=== PATIENT | female | born 1935 | race Caucasian/White ===

== ENCOUNTER 2016-08-26 14:22 | Inpatient (IN) | payer MEDICARE ==
[~2016-08-26] VITALS: Ht 165.1 cm; Wt 92.2 kg
[~2016-08-26 14:22] MED LIST: ASPI-628 PO; ATEN50TA PO; CHOL200047 PO; DICY20TA33 PO; DOCU-41 PO; HYDR-3479 PO; LEVO750T9 PO; LEVO75TA4 PO; LOSA25TA21 PO; MELA1TAB11 PO; METR500T PO; POLY17PO6 PO; RES15 PO; SENN8.6C6 PO; [UNRECOGNIZED DRUG - OTHER] PO
[2016-08-26 14:40] VITALS: PULSE 60; RESP 17; O2SAT 95
[2016-08-26 15:29] VITALS: BP 156/61; PULSE 79; RESP 18; O2SAT 93
[2016-08-26] MEDS ORDERED: Ondansetron 2 mg/mL 2 mL Inj IVPUSH ONE (16:15)
--- NOTE | 2016-08-26 16:17 | ED.REPORT ---
HPI-Abd Pain F 40 and Over Date of Service Aug 26, 2016 ED Provider: Sanjay Meraz MD Pt is an 81 year old female with a hx of DM, partial bowel blockage, and HTN presenting to the ED complaining of many episodes of vomiting today. Associated symptoms include abdominal pain, LE swelling. Denies fever, chills. She reports that her last bowel movement was a couple weeks ago. Pt states that she has not been drinking as much water as she should because she was distracted by her daughter visiting from [place]. She reports that these symptoms are similar to her previous episodes. Pt reports that she had an attempted colonoscopy [address] Abdoul Barton, but he was unable to do one. Nursing Notes Stated Complaint: STOMACH PAIN POSSIBLE INTESTINAL BLOCKAGE/ VOMITIN Chief Complaint: Female Abdominal Pain Nursing Notes Reviewed: Yes (Cognitive Match not reconciled) Allergies: Coded Allergies: Penicillins (Verified Allergy, Severe, Anaphylaxis, 11/09/15) codeine (Verified Allergy, Intermediate, Rash, 11/09/15) Scheduled ([Calanus Oil]) 500 MG PO DAILY Aspirin (Aspir 81) 81 Mg Tablet.dr 81 MG PO DAILY Atenolol (Atenolol) 50 Mg Tablet 50 MG PO DAILY Cholecalciferol (Vitamin D3) (Vitamin D3) 2,000 Unit Capsule 2,000 UNIT PO DAILY Docusate Sodium (Colace) 100 Mg Capsule 100 MG PO BID Levofloxacin (Levaquin) 750 Mg Tablet 750 MG PO DAILY Levothyroxine (Levothyroxine) 75 Mcg Tablet 75 MCG PO DAILY Losartan Potassium (Losartan Potassium) 25 Mg Tablet 25 MG PO DAILY Melatonin/Pyridoxine (Melatonin 3 mg Tablet) 1 Each Tablet 1 EACH PO HS Metronidazole (Flagyl) 500 Mg Tablet 500 MG PO TID Scheduled PRN Dicyclomine (Bentyl) 20 Mg Tablet 20 MG PO DAILY PRN PRN CRAMPING Hydrocodone/Acetaminophen (Vicodin 5-300 mg Tablet) 1 Each Tablet 1 EACH PO Q4 PRN PRN For Pain Polyethylene Glycol 3350 (Miralax) 17 Gm Powd.pack 17 GM PO DAILY PRN PRN For Constipation Sennosides (Senna) 8.6 Mg Capsule 17.2 MG PO BID PRN PRN For Constipation Temazepam (Temazepam) 15 Mg Capsule 15 MG PO HS PRN PRN For Insomnia General Time Seen by MD: 16:13 Chief Complaint Vomiting severe Hx Obtained From: Patient Arrived By: Walk-in Sudden in Onset?: No Onset Occurred: Just prior to arrival Symptom Duration: Since onset Progression since Onset: Constant Location: : Diffuse Quality: Painful Severity: Current: Severe Severity: Maximum: Severe Recent Healthcare: No recent doctor visit, No recent hospitalization Similar Sx Previous: Yes Past Medical History Past Medical History Notes: Admitted for partial small bowel obstruction September 2014 Past Medical History Reports DM Hypothyroidism. History of recurrent diverticulitis, patient refused to have surgery in past (hospitalist note in September 2014 indicates "prior suggestive sigmoid colon malignancy based on imaging", with records indicating the patient's decline any evaluation or workup since then) Chronic insomnia Peripheral neuropathy No diagnosis of atrial fibrillation Reports: Hypertension Past Surgical History Patient reports a failed attempt at colonoscopy in 2004 and is refused subsequent attempt Family History Reports: Coronary artery disease, Stroke Smoking History Never Smoker Social History Alcohol Use: Denies alcohol use Drug Use: Denies drug use Other Social History: Lives alone 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 Physical Exam Vital Signs Vital Signs (First) Date Time Temp Pulse Resp B/P Pulse Ox O2 Delivery O2 Flow Rate FiO2 08/26/16 14:40 36.3 60 17 95 Room Air 08/26/16 15:29 156/61 Initial VS: Reviewed Head / Eyes: Atraumatic, Normocephalic, PERRL ENT: Mucous membranes moist, Conjunctiva normal, No scleral icterus Skin: Warm, Dry, No cyanosis Neurologic: Alert, Oriented, Nonfocal Psychiatric: Mood/affect normal, Behavior normal, Normal thought content General/Constitutional: Awake, Alert, No acute distress Pleasant Respiratory / Chest: Atraumatic, Breath sounds NL, Breath sounds = bilat, No respiratory distress Cardiovascular: Heart rate NL, Regular rhythm, Heart sounds NL, Peripheral circulation NL Abdomen: Soft, Non-tender Lower Extremity / Pelvis / MS: Neurologic intact, Vascular intact Trace edema of legs Interpretation & Diagnostics Lab Results Interpretation Result Diagram: 08/26/16 1620 08/26/16 1620 Test 08/26/16 16:20 08/26/16 19:43 White Blood Count 13.1th/mm3 (3.8-10.1) Red Blood Count 4.76mil/mm3 (3.90-5.20) Hemoglobin 16.0g/dL (12.0-15.6) Hematocrit 48.6% (35.0-46.0) Mean Corpuscular Volume 102.1fL (81-100) Mean Corpuscular Hemoglobin 33.6pg (27.0-35.0) Mean Corpuscular Hemoglobin Concent 32.9% (32.0-37.0) Red Cell Distribution Width 12.9% (12.3-15.4) Platelet Count 215bil/L (150-400) Neutrophils (%) (Auto) 80.5% (40-74) Lymphocytes (%) (Auto) 11.3% (14-46) Monocytes (%) (Auto) 7.6% (4-12) Eosinophils (%) (Auto) 0.2% (0-5) Basophils (%) (Auto) 0.2% (0-3) Sodium Level 140mEq/L (134-144) Potassium Level 3.8mEq/L (3.5-5.2) Chloride Level 100mEq/L (97-108) Carbon Dioxide Level 25mmol/L (18-29) Blood Urea Nitrogen 13mg/dL (8-27) Creatinine 0.61mg/dL (0.57-1.00) Estimat Glomerular Filtration Rate 134mL/min (>59) Glucose Level 206mg/dL (60-99) Lactic Acid Level 1.4mmol/L (0.4-2.0) Calcium Level 9.9mg/dL (8.5-10.1) Magnesium Level 2.3mg/dL (1.6-2.6) Total Bilirubin 0.8mg/dL (0.0-1.2) Aspartate Amino Transf (AST/SGOT) 65U/L (0-50) Alanine Aminotransferase (ALT/SGPT) 83U/L (0-32) Alkaline Phosphatase 90U/L (25-165) Total Protein 7.1g/dL (6.4-8.4) Albumin 4.0g/dL (3.4-5.0) Lipase 16U/L (13-60) Lab Results Interpretation: Mild leukocytosis CMP mild hyperglycemia ECG Interpretation ECG Interpretation: Q waves inferiorally. Poor R wave progression. Computer reads prolonged QT interval however I do not agree. Time: 16:58 Interpreted by: ED physician Normal ECG Interpretation: Normal rate (81), Normal sinus rhythm CT Abd / Pelvis Interpretation IMPRESSION: 1. Apple core lesion within the sigmoid colon most consistent with colorectal cancer with resultant partial obstruction as described above. Fat stranding and trace fluid suggest microperforation. No pat pneumoperitoneum. This finding was discussed with Dr. Meraz at 6:13 PM on 08/26/16. 2. Cholelithiasis. Dictated by: aZhra Jones M.D. on 08/26/2016 at 18:02 Study type: Abdominal CT IV contrast Interpretation / Wet Read by: Interpret - Radiologist Procedures NG Tube Insertion Considerable discussion was held with the patient and family prior to NG tube insertion, patient initially resistant, but after lengthy discussion admitted for decompression, patient is agreed. Preparation for procedure, I administered 1 mg of Versed (per recent study demonstrating marked improvement), intranasal bupivacaine with epinephrine, intranasal oxymetazoline, and oral viscous lidocaine. Tubes placed without difficulty with immediate return of gastric fluid, placed to suction. A chest x-ray is being obtained to verify placement. The procedure was well-tolerated and without complication. Time: 19:49 Procedure Performed by: ED physician Site of Insertion: Nare right # of Attempts: 1 Size of Oral/NG Tube: 16 Fr Placement/Verification/Secured: Inserted w/o difficulty, Secured with nose guard Post-Procedure / Complications: Suction: continuous low, Suction: Intermittent med, No complications Re-Eval/Medical Decision Med Decision/Clinical Course This is an 81-year-old female presents with abdominal pain nausea vomiting a chief complaint that she says it is all constipation patient reports she takes MiraLAX 3 times a day, but despite this has had only colored stool weeks, and no bowel movement for more than 10 days. Her [place] [facility] today she had increasing pain, developed vomiting, could not keep anything down-therefore came to the emergency department. When I review the records, indicates she was admitted in the summer of [address] scan concern for thickening of the sigmoid colon with a recommendation for colonoscopy-but the patient had refused almost every intervention, blood work, CT scan imaging, and did not want any care testing non-to the point that even then apologetic care consultation was obtained. The patient now states she does not believe anyone told her there was any concerns of this nature, and she just did not like the personality of the providers involved. The family are fairly shocked at the morning that there had been previous concerns, but her friend who is here before does recall that the patient had been advised of these concerns and had been difficult and declined care. Appears uncomfortable today. She is not in extremist but has mild abdominal tenderness. However even though she is uncomfortable, she initially attempts refused or declined medications, although ultimately she accepted. She claimed that all she needed was an enema on medications to help stool passed, but given these prior records and concerns, I have recommended CT imaging-CM and family agreed to this. The CT imaging is interpreted as positive for a nap or lesion that is worse than previously seen on CT and is highly suspicious for an underlying malignancy. Patient was informed of these findings. I had a long discussion as the initial step recommended was decompression with NG tube, and after extensive deliberation discussion the patient's finally accepted this-an attempt to reduce the discomfort placement, the patient's receiving medazepam, intranasal bupivacaine, intranasal oxymetazoline, and oral lidocaine. Discussed the case with surgery given the presentation includes about structural , they would like GI to be involved primarily at this stage, and called back after GI consultation completed. The case was discussed with GI, who will see the patient likely tomorrow, and are considering sigmoid possibly for biopsy and initial therapy. Patient's being admitted for continued management and the case is discussed with the hospitalist. Source of Hx: Old records Re-Evaluation/Progress #1: Time of Eval: 17:45 Patient Status: Condition improved Re-Evaluation/Progress Note: Pt in CT. Re-Evaluation/Progress #2: Time of Eval: 18:24 Patient Status: Condition improved Re-Evaluation/Progress Note: Discussed CT results and plan for admission. Pt understands and agrees with plan. All pt questions addressed. Consultation #1: Referral / Consult Name: Gil Funez MD Consulted With: Surgeon Call Returned at: 18:55 Shipping Receiving Manager: Will see patient Note: They want the pt to see GI first, so they will stand by and wait for the GI consult. Consultation #2: Referral / Consult Name: Will Marcelino MD Call Returned at: 18:58 Shipping Receiving Manager: Will see patient Note: GI. He will see the pt. Consultation #3: Referral / Consult Name: Booker Villar MD Consulted With: Hospitalist Call Returned at: 19:15 Shipping Receiving Manager: Accepts admit Note: Case discussed Counseled Regarding: Diagnosis, Lab results, Need for follow-up, When/why to return to ED Discharge & Departure Primary Impression: Partial bowel obstruction Additional Impressions: Uncontrollable nausea and vomiting Vomiting type: unspecified Qualified Code: R11.2 - Nausea with vomiting, unspecified Sigmoid thickening Disposition: ADMITTED TO HOSPITAL Discharge Condition All VS Reviewed: Yes Condition: Improved Referrals: Ellis Holt MD (PCP) Dejon Attestation Portions of this note were transcribed by Laura Card. I, Dr. Meraz personally performed the history, physical exam and medical decision-making; I reviewed and confirmed the accuracy of the information in the transcribed note. Signed by: Dejon Tamayo, 08/26/2016 at 1660. copies to: Ellis Holt MD, Matthew F MD Aug 26, 2016 16:17 LAURA CARD Aug 26, 2016 16:27
[2016-08-26 16:31] LABS: BASOPHILS % (AUTO) 0.2 % (0-3); EOSINOPHILS % (AUTO) 0.2 % (0-5); MONOCYTES % (AUTO) 7.6 % (4-12); Mean Corpuscular Hemoglobin 33.6 pg (27.0-35.0); Mean Corpuscular Volume 102.1 fL (81-100); NEUTROPHILS % (AUTO) 80.5 % (40-74); Platelet Count 215 bil/L (150-400)
[2016-08-26] MEDS ORDERED: 0.9% Sodium Chloride 1,000 ML IV ONE (16:35)
[2016-08-26] MEDS: HYDROmorphone 0.5 mg/0.5 mL iSecure Syringe IVPUSH PRN ×3 (16:40→22:28)
[2016-08-26 16:54] LABS: Magnesium 2.3 mg/dL (1.6-2.6)
--- NOTE | 2016-08-26 18:18 | DRSVH ---
PROCEDURE: CT ABDOMEN AND PELVIS WITH CONTRAST ([id number]) INDICATIONS: abd pain vomiting TECHNIQUE: After the administration of intravenous contrast, 5 mm thick sections acquired from the diaphragm to the symphysis. 5 mm coronal and sagittal reformats were acquired. For radiation dose reduction, the following was used: automated exposure control, adjustment of mA and/or kV according to patient clara ibarra. COMPARISON: [facility], CT, CT ABD PELVIS W CON, 11/06/2015, 19:40. FINDINGS: Image quality: Excellent. ABDOMEN: Lung bases: Mild atelectasis is present at the left lung base. No pleural effusion or pneumothorax. Solid organs: Liver and spleen are normal in size and enhancement. A large lamellated gallstone is p resent within the gallbladder fundus. Biliary system is non dilated. Pancreas enhances normally. No adrenal nodules. Kidneys demonstrate normal size and enhancement, without hydronephrosis. An 8 x 1 2 mm nonobstructing calculus is present within the left renal pelvis. Peritoneum and bowel: Core lesion is present within the sigmoid colon. This is increased in extent wh en compared with the study dated 11/06/15. Trace free fluid and fat stranding is present in this regio n and microperforation cannot be excluded. No definite pneumoperitoneum. There is likely partial obst ruction with increased stool burden in the descending and sigmoid colon upstream to this lesion. The downstream colon is decompressed with scattered colonic diverticuli. Nodes and vessels: No retroperitoneal or mesenteric adenopathy by size criteria. Aorta and inferior vena cava are normal in size. There are scattered atheromatous calcifications throughout the aorta and iliac arteries bilaterally. Miscellaneous: No ventral hernias. PELVIS: Genitourinary: Bladder wall thickness is normal. Miscellaneous: No inguinal hernias or adenopathy. Bones: No suspicious bony lesions. No vertebral body compression fractures. IMPRESSION: 1. Apple core lesion within the sigmoid colon most consistent with colorectal cancer with resultant p artial obstruction as described above. Fat stranding and trace fluid suggest microperforation. No fra nk pneumoperitoneum. This finding was discussed with Dr. Meraz at 6:13 PM on 08/26/16. 2. Cholelithiasis. Dictated by: Zhara Jones M.D. on 08/26/2016 at 18:02 Approved by: Zahra Jones M.D. on 08/26/2016 at 18:17
[2016-08-26] MEDS ORDERED: Bupivacaine 0.5%/EPI 50 mL Inj ONE (19:22)
[2016-08-26] MEDS ORDERED: Bupivacaine 0.5%/EPI 50 mL Inj INFILTRATE ONE (19:30)
--- NOTE | 2016-08-26 19:34 | PCM.HPMED ---
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 Her stated symptoms include constipation with last bowel movement being this morning however consisting of small pellets. In the past she has experienced bowel movements that are pencil-shaped stools. Patient had attributed this to old age. Also of note patient had 5 pound weight loss over the past month that she attributes to decreased by mouth intake by choice. Patient denied a loss of appetite. She does report that she has been drinking less water over the past 2 days. Patient states what she would consider a normal bowel movement was 5-7 days ago. Currently patient's pain after receiving IV Dilaudid and having NG tube placed is 0 out of 10. Denies fever, chills, diarrhea. Pt states that she has not been drinking as much water as she should because she was distracted by her daughter visiting from [place]. She reports that these symptoms are similar to her previous episodes of abdominal cramps and nausea and vomiting in the past. She reports that this is just a most recent episode In the ED CT showed: Apple core lesion within the sigmoid colon most consistent with colorectal cancer with resultant partial obstruction as described above. Fat stranding and trace fluid suggest microperforation. No pat pneumoperitoneum. 2. Cholelithiasis. Of note patient was seen on 11/06/2015 for similar symptoms of small bowel obstruction and had abdominal/pelvic CT contrast done which showed: Irregular wall thickening within the mid sigmoid colon similar in appearance to the study dated 07/15/13. This finding is suspicious for indolent neoplasm. There is no pericolonic fat stranding, pneumoperitoneum, or findings to suggest abscess. There is a moderate stool burden upstream from this lesion and the downstream bowel is decompressed, suggesting partial colonic obstruction. The small bowel and the right colon are decompressed. Patient had refused further workup with colonoscopy or medical treatment at that time and was discharged home with laxatives for constipation and instructions to follow up with her PCP. Patient has history of refusal of colonoscopies since she had a failed colonoscopy in [address] Abdoul Barton. Vital signs in the ED temperature 36.3, pulse 60, respiratory rate 17, blood pressure 156/61 with a map of 92, pulse ox 93% on room air Hemogram showed: WBC is 13.1 with 80.5% PMNs, H/H 16.0/48.6, MCHC 32.9, MCH 33.6 , MCV 102.1, platelet count 215, Chemistry panel: Sodium 140, potassium 3.8, chloride 100, CO2 25, BUN 13, creatinine 0.61, glucose 206, lactic acid 1.4 AST 65, ALT 83, otherwise normal hemogram Review of Systems: A comprehensive review of systems was conducted and was negative except as mentioned in history of present illness. Allergies Coded Allergies: Penicillins (Verified Allergy, Severe, Anaphylaxis, 08/26/16) codeine (Verified Allergy, Intermediate, Rash, 08/26/16) Home Medications ([Calanus Oil]) 500 MG PO DAILY Aspirin (Aspir 81) 81 Mg Tablet.dr 81 MG PO DAILY Atenolol (Atenolol) 50 Mg Tablet 50 MG PO DAILY Cholecalciferol (Vitamin D3) (Vitamin D3) 2,000 Unit Capsule 2,000 UNIT PO DAILY Docusate Sodium (Colace) 100 Mg Capsule 100 MG PO BID Levothyroxine (Levothyroxine) 75 Mcg Tablet 75 MCG PO DAILY Losartan Potassium (Losartan Potassium) 25 Mg Tablet 25 MG PO DAILY Melatonin/Pyridoxine (Melatonin 3 mg Tablet) 1 Each Tablet 1 EACH PO HS Hydrochlorothiazide 25 mg daily PRN Hydrocodone/Acetaminophen (Vicodin 5-300 mg Tablet) 1 Each Tablet 1 EACH PO Q4 PRN PRN For Pain Polyethylene Glycol 3350 (Miralax) 17 Gm Powd.pack 17 GM PO DAILY PRN PRN For Constipation Sennosides (Senna) 8.6 Mg Capsule 17.2 MG PO BID PRN PRN For Constipation Temazepam (Temazepam) 15 Mg Capsule 15 MG PO HS PRN PRN For Insomnia Trazodone 50 mg takes half a tablet daily at bedtime Ibuprofen 400 mg when necessary PMH Admitted for partial small bowel obstruction September 2014 Reports DM Hypothyroidism. History of recurrent diverticulitis, patient refused to have surgery in past (hospitalist note in September 2014 indicates "prior suggestive sigmoid colon malignancy based on imaging", with records indicating the patient's decline any evaluation or workup since then) Chronic insomnia Peripheral neuropathy No diagnosis of atrial fibrillation Hypertension History of a crush lumbar vertebra and now has chronic pain . Surgical History Patient reports a failed attempt at colonoscopy in 2004 and is refused subsequent attempt Reports appendectomy at age 9, Reports right rotator cuff repair in 2009 Family History Patient reports she has a brother who of cancer age 58 Patient denies a family history of of stroke, diabetes, hypertension, coronary artery disease Social History Hx Alcohol Use: No Hx Substance Use: No Hx Tobacco Use: No Smoking Status: Never Smoker Living Arrangement: Alone (patient resides at [facility]) Exam Vital Signs Vital Sign - Last Date Time Temp Pulse Resp B/P Pulse Ox O2 Delivery O2 Flow Rate FiO2 08/26/16 15:29 79 18 156/61 93 Room Air 08/26/16 14:40 36.3 Exam General: Patient is alert and oriented 3 resting comfortably in the hospital bed in the emergency department, patient's daughter in 3 friends are present in the room, patient speaking in full sentences. HEENT: NC/AT, eyes, PERRLA, EOMI, neck, soft supple, no adenopathy, no JVD, no masses, no thyromegaly, throat mucous membranes pink and moist, no erythema, no exudates, no tonsillar swelling, no uvular deviation. Lungs: Bilateral lung bases with crackles, no wheezes, no rhonchi, no use of accessory muscles of respiration, good air movement, good respiratory effort. Heart: Regular rate and rhythm, no murmur, S1-S2 present, no rub, no click, no distant heart sounds, Abdomen: Soft, palpable hard stool in the left lower quadrant, nontender to palpation, nondistended, bowel sounds hypoactive, no rebound, no guarding, Genitourinary: No CVA tenderness, no suprapubic tenderness, no Lainez catheter, Extremities: Pulses equal and symmetric upper/lower extremity including radial and dorsalis pedis, bilateral lower extremity edema to midcalf +1 pitting Neurologic: Grossly neurologically intact, speaking in full sentences, no focal neurological signs. Psychiatric: Mood is cheerful and mood and affect are congruent and appropriate. Lab and Diagnostics Result Diagram: 08/26/16 1620 08/26/16 1620 X-Rays, CTs and MRIs Date of Service: 08/26/16 1631 PROCEDURE: CT ABDOMEN AND PELVIS WITH CONTRAST INDICATIONS: abd pain vomiting TECHNIQUE: After the administration of intravenous contrast, 5 mm thick sections acquired from the diaphragm to the symphysis. 5 mm coronal and sagittal reformats were acquired. For radiation dose reduction, the following was used: automated exposure control, adjustment of mA and/or kV according to patient size. COMPARISON: [facility], CT, CT ABD PELVIS W CON, 11/06/2015, 19:40. FINDINGS: Image quality: Excellent. ABDOMEN: Lung bases: Mild atelectasis is present at the left lung base. No pleural effusion or pneumothorax. Solid organs: Liver and spleen are normal in size and enhancement. A large lamellated gallstone is present within the gallbladder fundus. Biliary system is non dilated. Pancreas enhances normally. No adrenal nodules. Kidneys demonstrate normal size and enhancement, without hydronephrosis. An 8 x 12 mm nonobstructing calculus is present within the left renal pelvis. Peritoneum and bowel: Core lesion is present within the sigmoid colon. This is increased in extent when compared with the study dated 11/06/15. Trace free fluid and fat stranding is present in this region and microperforation cannot be excluded. No definite Pneumoperitoneum. There is likely partial obstruction with increased stool burden in the descending and sigmoid colon upstream to this lesion. The downstream colon is decompressed with scattered colonic diverticuli. Nodes and vessels: No retroperitoneal or mesenteric adenopathy by size criteria. Aorta and inferior vena cava are normal in size. There are scattered atheromatous calcifications throughout the aorta and iliac arteries bilaterally. Miscellaneous: No ventral hernias. PELVIS: Genitourinary: Bladder wall thickness is normal. Miscellaneous: No inguinal hernias or adenopathy. Bones: No suspicious bony lesions. No vertebral body compression fractures. IMPRESSION: 1. Apple core lesion within the sigmoid colon most consistent with colorectal cancer with resultant partial obstruction as described above. Fat stranding and trace fluid suggest microperforation. No pat pneumoperitoneum. This finding was discussed with Dr. Meraz at 6:13 PM on 08/26/16. 2. Cholelithiasis. Dictated by: Zahra Jones M.D. on 08/26/2016 at 18:02 Approved by: Zahra Jones M.D. on 08/26/2016 at 18:17 Date of Service: 08/26/161947 PROCEDURE: X-RAY CHEST ONE VIEW, PORTABLE INDICATIONS: check NG placement TECHNIQUE: One view of the chest was acquired. COMPARISON: None. FINDINGS: Surgical changes and devices: An NG tube is present with the tip projected over the gastric fundus. Lungs and pleura: No pleural effusions or pneumothorax. Lungs are clear. Mediastinum: Mediastinal contours appear normal. Heart size is normal. Bones and chest wall: No suspicious bony lesions. Overlying soft tissues appear unremarkable. IMPRESSION: No acute cardiopulmonary findings. NGT projected over the gastric fundus. Dictated by: Zahra Jones M.D. on 08/26/2016 at 20:29 Approved by: Zahra Jones M.D. on 08/26/2016 at 20:30 Assessment & Plan # Small bowel obstruction, present on admission, active -Has had similar severe nausea and vomiting episodes in the past. Patient states this episode started 2 days ago with severe central abdominal cramping rated 12 out of 10, by vomiting onset today. -Patient has NG tube placed, wanted for pain with reported significant improvement. Patient's pain on medication was 0 out of 10 - Start normal saline 100 ml/hr -We will continue IV Dilaudid for pain -GI has been consulted -Supportive care -Nothing by mouth for now # Large bowel obstruction, present on admission, active -History of constipation and takes multiple stool softeners including Colace 100 mg by mouth twice a day, senna 8.6 mg capsule by mouth twice a day when necessary, and MiraLAX -Failed colonoscopy [address] Barton -History of colon obstruction as seen on abdominal imaging since 2013. -08/26/2016 Apple Core lesion seen on CT abdomen and pelvis with stool compaction proximal to stricture. -Patient has NG tube placed -GI has been consulted by the ED and will perform sigmoidoscopy -Surgery Dr. Funez has been consulted by the ED, he was present in the room during this exam. -Stool softeners and laxatives to include docusate, senna, and MiraLAX scheduled #Leukocytosis, present on admission, active -Vital signs in the ED temperature 36.3, pulse 60, respiratory rate 17, blood pressure 156/61 with a map of 92, pulse ox 93% on room air -WBC is 13.1 with 80.5% PMNs -Lactic acid 1.4 -Patient does not meet sepsis criteria -Meropenem 1000 mg IV started in ED -Meropenem 1000 mg IV Q8H #Hyperglycemia in a known type 2 diabetic, present on admission -Glucose 206 -start low-dose correctional scale insulin # Hypertension, chronic, present on admission -We will continue Atenolol 50 mg daily -We will continue Losartan 25 mg daily # Hypothyroidism, present on admission, chronic, active - Levothyroxin 75 g daily # Insomnia -Temazepam 15 mg by mouth. Before bedtime -Melatonin 3 mg before bedtime #Transaminitis chronic, present on admission, active -AST 65, ALT 83, - Disposition: Admitted to in patient service with expected length of stay greater than 2 days, secondary to severity of presenting symptoms, treatment plan, complexity of clinical work up, and risk of adverse events. CODE STATUS: DNR/DNI PCP: Ellis Holt DVT PE prophylaxis: SCD's/Enoxiparin/SubQ heparin Q8H Contact: Valerie, patient's daughter [phone] Attending Statement The patient was seen and examined together with Dr. Neal on 08/26 and I agree with the history, exam and plan as outlined in the note above. Tariq Neal DO Aug 26, 2016 19:34 Booker Villar MD Aug 26, 2016 22:34
[2016-08-26] MEDS ORDERED: Meropenem Inj 1,000 MG in IV Premix 1 EACH IV ONE (19:35)
[2016-08-26] MEDS ORDERED: 0.9% Sodium Chloride 1,000 ML IV SCH (19:54)
[2016-08-26] MEDS ORDERED: Alum-Mag Hydrox-Simeth 30 mL Suspension PO PRN ×2 (19:55→21:15)
[2016-08-26] MEDS ORDERED: Ondansetron 2 mg/mL 2 mL Inj IVPUSH PRN ×2 (19:55→21:15)
[2016-08-26 20:18] VITALS: BP 169/64; PULSE 87; RESP 18; O2SAT 94
[2016-08-26 20:30] LABS: APPEARANCE,URINE HAZY (CLEAR,HAZY); COLOR,URINE YELLOW (YELLOW); OCCULT BLOOD,URINE LARGE (NEGATIVE); UROBILINOGEN,URINE NORMAL (NORMAL)
--- NOTE | 2016-08-26 20:31 | DRSVH ---
PROCEDURE: X-RAY CHEST ONE VIEW, PORTABLE ([id number]) INDICATIONS: check NG placement TECHNIQUE: One view of the chest was acquired. COMPARISON: None. FINDINGS: Surgical changes and devices: An NG tube is present with the tip projected over the gastric fundus. Lungs and pleura: No pleural effusions or pneumothorax. Lungs are clear. Mediastinum: Mediastinal contours appear normal. Heart size is normal. Bones and chest wall: No suspicious bony lesions. Overlying soft tissues appear unremarkable. IMPRESSION: No acute cardiopulmonary findings. NGT projected over the gastric fundus. Dictated by: Zahra Jones M.D. on 08/26/2016 at 20:29 Approved by: Zahra Jones M.D. on 08/26/2016 at 20:30
[2016-08-26] MEDS ORDERED: Polyethylene Glycol (PEG) 17 Gm Powder PO PRN ×2 (21:10→21:15)
[2016-08-26] MEDS ORDERED: DICYCLOMINE 20 MG PO PRN (21:10)
[2016-08-26] MEDS ORDERED: TRAZ-115 PO (21:22)
[2016-08-26] MEDS ORDERED: HYDR25TA4 PO (21:22)
[2016-08-26] MEDS ORDERED: [UNRECOGNIZED DRUG - OTHER] PO (21:22)
[2016-08-26] MEDS ORDERED: GLUC-120 PO (21:22)
[2016-08-26] MEDS ORDERED: ASPI-973 PO (21:22)
[2016-08-26] MEDS ORDERED: MULT-666 PO (21:22)
[2016-08-26] MEDS ORDERED: [UNRECOGNIZED DRUG - OTHER] PO (21:22)
[2016-08-26] MEDS ORDERED: Glucose 40% Oral Gel 15 Gm Tube PO PRN (21:35)
[2016-08-26 21:36] VITALS: BP 169/64; PULSE 84; RESP 18; O2SAT 94
[2016-08-26 21:39] LABS: INR 0.96 ratio
--- NOTE | 2016-08-26 21:50 | NUR ---
Admission Note Pt admitted to [facility] from ER on stretcher at 2135, alert and orientedx3, states intermittent abdominal cramping 5/10, c/o soar throat due to NG tube in place, nausea resolved, denies SOB,any other pain or fever,chills,dizziness or vertigo. Pt states last BM maybe 3-4 days ago, not sure,pass some gas. Mild decreased lung sounds,clear, heart rate regular,tele applied SR 79 per secured entrance monitor. Abdomen mild distended,soft, mild tenderness at lower quadrant, BT not present. NG in right nose,connected to low continuos wall suction, verified by charge nurse Edy Eugene. 1+ edema at bilateral LEs. Dilaudid will be given for abdominal pain, pt requests med for soar throat, Resident Val contacted and Dr. Chinchilla also communicated, soar throat spray ordered, waiting for med to be sent by pharmacy. Pt informed NPO. Call light oriented to pt. Care ongoing.
[2016-08-26 22:09] VITALS: BP 161/83; PULSE 82; RESP 18; O2SAT 92
[2016-08-26] MEDS ORDERED: Acetaminophen IV 650 MG in IV Premix 1 EACH IV PRN (22:10)
[2016-08-26] MEDS ORDERED: Acetaminophen IV 1,000 MG in IV Premix 1 EACH IV ONE (22:20)
[2016-08-26] MEDS: 0.9% Sodium Chloride 1,000 ML IV SCH (22:27)
[2016-08-26] MEDS: Heparin 5,000 Unit/mL Inj SUBQ SCH (22:27)
[2016-08-26] MEDS ORDERED: Labetalol 5 mg/mL 4 mL Inj IVPUSH ONE (22:30)
[2016-08-26] MEDS: Insulin LISPRO 300 Unit/3 mL Inj SUBQ SCH (23:21)
[2016-08-26] MEDS: Phenol 1.4% 177 mL Spray MUC_MEMBRM PRN (23:32)
[2016-08-27] VITALS (8 sets, daily range): BP systolic 116–160; BP diastolic 57–73; PULSE 73–87; RESP 16–18; O2SAT 92–98
--- NOTE | 2016-08-27 00:02 | CONS ---
[address] [address] CONSULTATION REPORT PATIENT: KWABENA CORDERO : 1935 MR#: [id number] ADMIT: 08/26/2016 JOB ID: [id number] DATE OF SERVICE: 08/26/2016 CHIEF COMPLAINT: Sigmoid mass, nausea and vomiting. HISTORY OF PRESENT ILLNESS: The patient is an 81-year-old female who presented to the emergency department today due to abdominal pain and nausea, vomiting. The patient developed lower abdominal cramping yesterday and today had several episodes of nausea and vomiting. The patient has not had a good bowel movement for the past several weeks. She is passing pencil-like stools and small pellet-like rocks as stool. She did have a small pellet stool this morning and she does report passing flatus. The patient has had prior CT scans in January [address] scan in October 2015 which showed sigmoid thickening, however, the patient has had a prior attempted colonoscopy by Dr. Abdoul Barton in 2003 in which it was not successful and subsequently patient has refused further endoscopic surveillance of her colon. The CT scan report in January 2014 shows irregular wall thickening involving the sigmoid colon and also cholelithiasis. The CT scan from October 2015 showed irregular wall thickening within the mid sigmoid colon similar in appearance to June 2013. This finding is suspicious for indolent neoplasm. There are also findings of cholelithiasis. The patient has had prior history of recurrent diverticulitis. Given the onset of lower abdominal pain and nausea, vomiting over the past two days, a repeat CT scan was done today and this also showed an apple core lesion within the sigmoid colon most consistent with colorectal cancer with resultant partial obstruction. There are also findings of cholelithiasis. I discussed the potential implications of these CT scan findings with the patient and her daughter today. PAST MEDICAL HISTORY: Diabetes, hypertension, hypothyroidism, attempted colonoscopy in 2003, recurrent diverticulitis, neuropathy and carpal tunnel surgery, appendectomy. MEDICATIONS AT HOME: 1. Baby aspirin. 2. Atenolol. 3. Vitamins. 4. Colace. 5. Levaquin. 6. Losartan. 7. Senna. ALLERGIES: 1. CODEINE. 2. PENICILLIN. 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 She does have two daughters. FAMILY HISTORY: Positive for heart disease, stroke and brain tumor. REVIEW OF SYSTEMS: Positive for the lower abdominal cramping, nausea, vomiting which started today. She is passing flatus and having small rock-like stool and also pencil-like stool. PHYSICAL EXAMINATION: The patient is currently on the emergency department [facility] in no acute distress. An NG tube is in place. Temperature is 36.3, blood pressure 169/64, pulse is 87, respirations 18. Her BMI is 34.7. Head is normocephalic, atraumatic. There is no scleral icterus. Neck is supple. Heart is in regular rate. Lungs are clear bilaterally. Abdomen is obese. It is nontender in the upper quadrants, and it is only mildly tender in the suprapubic and left lower quadrant location. There are definitely no signs of palpable mass or peritoneal signs. Extremities show no clubbing and no cyanosis. Neurologically, the patient is awake and alert, and she is able to communicate with me. Her daughter is also present. LABORATORY EXAMINATION: Shows a white blood count of 13.1, hematocrit 48.6, platelet count is 215. Sodium is 140, potassium 3.8, creatinine 0.61, total bilirubin is 0.8, lipase is 16. The CT scan report from today shows an apple core lesion within the sigmoid colon most consistent with colorectal cancer with partial obstruction and also cholelithiasis. ASSESSMENT: This is an 81-year-old female with a nearly obstructing apple-core lesion in her sigmoid colon. She has had worrisome CT scan findings dating back to June 2013, January 2014, and October 2015. The patient had a failed colonoscopy in 2004, and has since then refused further endoscopic evaluation. I believe Gastroenterology has been consulted, and I believe their plan is to perform a sigmoidoscopy at some point. I have discussed with the patient that in this situation she may warrant an exploratory laparotomy with sigmoid resection and a colostomy. The patient is of the impression that she is 81 and she may not want to pursue surgical intervention. The patient has expressed similar opinion during her prior hospitalizations here at [facility]. I will follow up with the patient to see if she is of the same opinion. I do recommend that GI proceed with sigmoidoscopy and we can get a CEA level sent off. We should wait for the results of the sigmoidoscopy. If she has made up her mind not to pursue a surgical solution, then palliative care should be consulted. LEOLA
[2016-08-27] MEDS: Phenol 1.4% 177 mL Spray MUC_MEMBRM PRN ×4 (02:23→22:34)
[2016-08-27] MEDS: HYDROmorphone 0.5 mg/0.5 mL iSecure Syringe IVPUSH PRN ×3 (02:23→14:37)
[2016-08-27] MEDS ORDERED: Acetaminophen IV 1,000 MG in IV Premix 1 EACH IV PRN (04:10)
[2016-08-27] MEDS: Heparin 5,000 Unit/mL Inj SUBQ SCH ×3 (05:36→22:34)
[2016-08-27] MEDS: Meropenem Inj 1,000 MG in 0.9% Sodium Chloride 100 ML IV SCH ×2 (05:36→13:05)
[2016-08-27 06:07] LABS: BASOPHILS % (AUTO) 0.2 % (0-3); EOSINOPHILS % (AUTO) 1.7 % (0-5); MONOCYTES % (AUTO) 11.6 % (4-12); Mean Corpuscular Hemoglobin 34.6 pg (27.0-35.0); Mean Corpuscular Volume 102.4 fL (81-100); NEUTROPHILS % (AUTO) 60.3 % (40-74); Platelet Count 208 bil/L (150-400)
[2016-08-27 06:16] LABS: INR 0.99 ratio
[2016-08-27] MEDS: Insulin LISPRO 300 Unit/3 mL Inj SUBQ SCH ×4 (08:00→22:00)
[2016-08-27] MEDS: 0.9% Sodium Chloride 1,000 ML IV SCH (08:46)
--- NOTE | 2016-08-27 10:39 | NUR ---
Pain Pt is alert and oriented x4. Pt is here due to a bowel obstruction. Pt has not had a bowel movement in a few days, the goal is for pt to have a bm. Pt claims flatulence. pt is having abdominal pain and rates it 6/10. Pt was given Dilaudid at 10am this morning (PRN). Pain level was reassessed 15 minutes later and pt is having no pain (0/10).
[2016-08-27] MEDS ORDERED: Sodium Biphos-Phos 133 mL Enema RECTAL ONE (13:00)
--- NOTE | 2016-08-27 13:57 | NUR ---
Enema Pt was given an enema at 1315. Pt expelled 150 cc of cloudy/brown liquid containing small pellet feces on the commode. pt back in bed safely, bed low and call light within reach.
--- NOTE | 2016-08-27 14:50 | PCM.CHPMED ---
Subjective Date of Service: Aug 27, 2016 Primary Physician: Admitting Physician: Booker Villar MD Primary Care Physician: Ellis Holt MD Attending Physician: Will Marcelino MD Admit Status: From the Emergency Department Chief Complaint: Chief Complaint: Reason for consultation: sigmoid colon mass History of Present Illness: GASTROENTEROLOGY CONSULTATION: Lissette Mendoza is a 81 yo female with a history of partial bowel blockage due to sigmoid thickening dating back to 2013, Type 2 DM, hypothyroidism, and HTN who presented to [facility] for 2 day history of severe generalized abdominal pain with nausea and vomiting. The patient reports chronic constipation that controlled with daily laxatives and stool softeners. However, in the week, she has not had a good bowel movement and is passing pencil-like stools and small pellet-like rocks as stool. She attributes this to dehydration as she has not been drinking much water due to being "distracted by her daughter visitnaya from [place]." She reports that these symptoms are similar to her previous episodes of abdominal cramps with nausea and vomiting that prompted hospital admission in the past. Otherwise, she denies hematemesis, hematochezia, melena, dizziness , headache, chest pain, fever, or chills. Of note, the patient had a CT scan in January 2014 that showed irregular wall thickening involving the sigmoid colon and also cholelithiasis. The CT scan from October 2015 showed irregular wall thickening within the mid sigmoid colon similar in appearance to June 2013. This finding is suspicious for indolent neoplasm. The patient has had prior history of recurrent diverticulitis. Given the onset of lower abdominal pain and nausea, vomiting over the past two days, a repeat CT scan was done yesterday and this also showed an apple core lesion within the sigmoid colon most consistent with colorectal cancer with resultant partial obstruction. Again, there are also findings of cholelithiasis. In the past, the patient had refused further workup with colonoscopy or medical treatment at that time and was discharged home with laxatives for constipation and instructions to follow up with her PCP. Patient had a failed colonoscopy by Dr. Abdoul Barton in 2003, and subsequently has been refusing further endoscopic surveillance of her colon ever since. Today, she reports significant improvement of her symptoms with the NG tube and pain medication. She had a small pellet stool yesterday morning and she does report passing flatus intermittently. Dr. Funez from general surgery discussed with the patient and her daughter about possible exploratory laparotomy with sigmoid resection and a colostomy. Patient initially refused to pursue surgical or invasive intervention. However, when we talked to her this morning, she agreed to "whatever needs to be done because I cannot keep having this again." However, she is adamant about NO colonoscopy and refuses to do the bowel prep. She is ok with sigmoidoscopy and surgical interventions at this point. Gastroenterology service is consulted for the sigmoidoscopy. Review of Systems: Constitutional: Denies: Chills, Fever, Weakness Eyes: Denies: Blurred Vision, Conjunctive Inflammation, Double Vision ENT: Denies: Dysphagia, Ear Pain, Hoarseness, Throat Pain, Ulcers/Sores in Mouth Neck: Denies: Pain Cardiovascular: Denies: Chest Pain, Irregular Heart Rate, Palpitations, SOB on Exertion Gastrointestinal: Reports: Abdominal Pain, Change in Appetite, Constipation, Nausea, Use of Laxatives, Vomiting, Denies: Black tarry stools, Blood in stool (red), Diarrhea, Heartburn Genitourinary: Denies: Change in Frequency, Dysuria, Hematuria, No burning or pain with urination Neurological: Denies: Change in Speech, Confusion, Dizziness, Somnolence Psychologic: Denies: Anxiety, Depression Hematologic: Denies: Abnormal Bleeding, Bruising PMH Past Medical History Admitted for partial small bowel obstruction September 2014 Reports DM Hypothyroidism. History of recurrent diverticulitis, patient refused to have surgery in past ( hospitalist note in September 2014 indicates "prior suggestive sigmoid colon malignancy based on imaging", with records indicating the patient's decline any evaluation or workup since then) Chronic insomnia Peripheral neuropathy Hypertension History of a crush lumbar vertebra and now has chronic pain Bedside Blood Glucose: 121 Surgical History Patient reports a failed attempt at colonoscopy in 2004 and is refused subsequent attempt Reports appendectomy at age 9, Reports right rotator cuff repair in 2009 Home Medications ([Calanus Oil]) 500 MG PO DAILY Aspirin (Aspir 81) 81 Mg Tablet.dr 81 MG PO DAILY Atenolol (Atenolol) 50 Mg Tablet 50 MG PO DAILY Cholecalciferol (Vitamin D3) (Vitamin D3) 2,000 Unit Capsule 2,000 UNIT PO DAILY Docusate Sodium (Colace) 100 Mg Capsule 100 MG PO BID Levothyroxine (Levothyroxine) 75 Mcg Tablet 75 MCG PO DAILY Losartan Potassium (Losartan Potassium) 25 Mg Tablet 25 MG PO DAILY Melatonin/Pyridoxine (Melatonin 3 mg Tablet) 1 Each Tablet 1 EACH PO HS Hydrochlorothiazide 25 mg daily PRN Hydrocodone/Acetaminophen (Vicodin 5-300 mg Tablet) 1 Each Tablet 1 EACH PO Q4 PRN PRN For Pain Polyethylene Glycol 3350 (Miralax) 17 Gm Powd.pack 17 GM PO DAILY PRN PRN For Constipation Sennosides (Senna) 8.6 Mg Capsule 17.2 MG PO BID PRN PRN For Constipation Temazepam (Temazepam) 15 Mg Capsule 15 MG PO HS PRN PRN For Insomnia Trazodone 50 mg takes half a tablet daily at bedtime Ibuprofen 400 mg when necessary Allergies: Coded Allergies: Penicillins (Verified Allergy, Severe, Anaphylaxis, 08/26/16) codeine (Verified Allergy, Intermediate, Rash, 08/26/16) Family History Family History Patient reports she has a brother who of brain cancer age 58 Patient denies a family history of colon/gastric cancer. Social History Hx Alcohol Use: NoHx Substance Use: NoHx Tobacco Use: No Smoking Status: Never Smoker Living Arrangement: Alone (patient resides at [facility]) Exam Vital Signs Vital Sign - Last Date Time Temp Pulse Resp B/P Pulse Ox O2 Delivery O2 Flow Rate FiO2 08/27/16 14:08 37.0 75 16 139/59 95 Room Air Intake and Output 08/26/16 08/26/16 08/27/16 Cumulative From/Thru 15:00 23:00 07:00 08/26/16 14:40 - 08/27/16 06:41 Intake Total 1000 ml 770 ml 1770 ml Output Total 370 ml 370 ml Balance 1000 ml 400 ml 1400 ml Intake Oral 0 ml 0 ml IV Total 1000 ml 770 ml 1770 ml Output Urine Total 350 ml 350 ml Gastric Drainage Total 20 ml 20 ml Additional Information: General: Patient is alert and oriented 3 resting comfortably, patient's daughter is present in the room, patient speaking in full sentences. HEENT: NC/AT, eyes, PERRLA, EOMI. Mucous membrane dry. Neck: soft, supple, no adenopathy, no masses, no thyromegaly. Lungs: Bilateral lung bases with mild crackles, no wheezes, no rhonchi, no use of accessory muscles of respiration, good air movement, good respiratory effort. Heart: Regular rate and rhythm, no murmur, S1-S2 present, no rub, no click, no distant heart sounds, Abdomen: Soft, nondistended, mild tenderness to palpation in bilateral lower quadrants. No rebound tenderness or guarding. Bowel sounds hypoactive, but present throughout. Extremities: Pulses equal and symmetric upper/lower extremity including radial and dorsalis pedis, bilateral lower extremity with mild pitting edema. Neurologic: Grossly neurologically intact, speaking in full sentences, no focal neurological signs. Psychiatric: Mood and affect are congruent and appropriate. Lab and Diagnostics Result Diagram: 08/27/1654408/27/16544 Assessment & Plan Assessment 81 yo female with a history of partial bowel blockage due to sigmoid thickening dating back to 2013, Type 2 DM, hypothyroidism, and HTN who presented to [facility] for 2 day history of severe generalized abdominal pain with nausea and vomiting. She was found to have an apple core lesion within the sigmoid colon most consistent with colorectal cancer with resultant partial obstruction on CT scan. This is increased in extent when compared with previous CT. GI service was consulted for a sigmoidoscopy. Imaging: - CT abd/pelvis on 08/26/2016: 1. Apple core lesion within the sigmoid colon most consistent with colorectal cancer with resultant partial obstruction as described above. Fat stranding and trace fluid suggest microperforation. No pat pneumoperitoneum. This finding was discussed with Dr. Meraz at 6:13 PM on 08/26/16. 2. Cholelithiasis. Assessments: 1. Small and large bowel obstruction secondary to sigmoid colon lesion, present on admission, active. 2. History of diverticulitis, not active. Plans: - Risks and benefits of both colonoscopy and sigmoidoscopy were discussed with the patient and her daughter. - In light of her bowel obstruction, we advised the patient that if we proceed with the colonoscopy, we will do the bowel prep slowly. However, patient refused to pursue colonoscopy at this time. - Patient agreed to the sigmoidoscopy and we will proceed with it sometime this afternoon. - Patient also agreed to reverse her DNI/DNR code status only during the procedure. - Fleet enema x1 ordered. - Continue with NPO diet. - Continue with NGT and pain management. - Patient now wishes to pursue surgical interventions. We recommend general surgery to follow up with the patient. Other medical issues will be managed by the hospitalist team. Thank you for this consultation. Please contact us if you have any question or concern. I have seen and examined the pt with the resident and agree with above. Pt again refused to proceed with colonoscopy eventhough there could be dire consequences to her health and life. Problems: Pain Evaluation: Adequate Pain Control VTE Mechanical Devices: Intermittant Pneumatic CD Resuscitation Status: DNR/DNI:Do Not Resuscitate/Intubate Lauren Nguyen DO Aug 27, 2016 14:50 Will Marcelino MD Aug 29, 2016 11:47
--- NOTE | 2016-08-27 15:23 | PCM.PNMED ---
Subjective Date of Service Aug 27, 2016 Subjective reports continued lower abdominal cramping and pain. says feels better than yesterday after NG tube placement. no BM or significant flatus Exam Vital Signs Vital Sign - Last Date Time Temp Pulse Resp B/P Pulse Ox O2 Delivery O2 Flow Rate FiO2 08/27/16 14:08 37.0 75 16 139/59 95 Room Air Intake and Output 08/26/16 08/26/16 08/27/16 Cumulative From/Thru 15:00 23:00 07:00 08/26/16 14:40 - 08/27/16 06:41 Intake Total 1000 ml 770 ml 1770 ml Output Total 370 ml 370 ml Balance 1000 ml 400 ml 1400 ml Intake Oral 0 ml 0 ml IV Total 1000 ml 770 ml 1770 ml Output Urine Total 350 ml 350 ml Gastric Drainage Total 20 ml 20 ml General: Alert, Cooperative, No Acute Distress Head: Normal Eyes: Scleral Anicteric Nose: Mucous Membr Moist/[place], Other (NG tube in place) Mouth: Mucous Membr Moist/[place] Neck: Supple Chest & Lungs: Chest Wall Normal, Clear to auscultation & percussion Pulses: NL carotid, radial, femoral, DP, PT Abdomen: Tender, Non-distended, Normoactive bowel tones, Soft Extremities: No cyanosis/clubbing/edma bilat Neurological: Grossly Neurologically Intact, Normal Speech IVs and Medications Medications Reviewed: Medications were reviewed in detail Lab and Diagnostics Result Diagram: 08/27/16 0545 08/27/16 0545 X-Rays, CTs and MRIs Date of Service: 08/26/16 1631 PROCEDURE: CT ABDOMEN AND PELVIS WITH CONTRAST INDICATIONS: abd pain vomiting TECHNIQUE: After the administration of intravenous contrast, 5 mm thick sections acquired from the diaphragm to the symphysis. 5 mm coronal and sagittal reformats were acquired. For radiation dose reduction, the following was used: automated exposure control, adjustment of mA and/or kV according to patient size. COMPARISON: [facility], CT, CT ABD PELVIS W CON, 11/06/2015, 19:40. FINDINGS: Image quality: Excellent. ABDOMEN: Lung bases: Mild atelectasis is present at the left lung base. No pleural effusion or pneumothorax. Solid organs: Liver and spleen are normal in size and enhancement. A large lamellated gallstone is present within the gallbladder fundus. Biliary system is non dilated. Pancreas enhances normally. No adrenal nodules. Kidneys demonstrate normal size and enhancement, without hydronephrosis. An 8 x 12 mm nonobstructing calculus is present within the left renal pelvis. Peritoneum and bowel: Core lesion is present within the sigmoid colon. This is increased in extent when compared with the study dated 11/06/15. Trace free fluid and fat stranding is present in this region and microperforation cannot be excluded. No definite Pneumoperitoneum. There is likely partial obstruction with increased stool burden in the descending and sigmoid colon upstream to this lesion. The downstream colon is decompressed with scattered colonic diverticuli. Nodes and vessels: No retroperitoneal or mesenteric adenopathy by size criteria. Aorta and inferior vena cava are normal in size. There are scattered atheromatous calcifications throughout the aorta and iliac arteries bilaterally. Miscellaneous: No ventral hernias. PELVIS: Genitourinary: Bladder wall thickness is normal. Miscellaneous: No inguinal hernias or adenopathy. Bones: No suspicious bony lesions. No vertebral body compression fractures. IMPRESSION: 1. Apple core lesion within the sigmoid colon most consistent with colorectal cancer with resultant partial obstruction as described above. Fat stranding and trace fluid suggest microperforation. No pat pneumoperitoneum. This finding was discussed with Dr. Meraz at 6:13 PM on 08/26/16. 2. Cholelithiasis. Dictated by: Zahra Jones M.D. on 08/26/2016 at 18:02 Approved by: Zahra Jones M.D. on 08/26/2016 at 18:17 Date of Service: 08/26/161947 PROCEDURE: X-RAY CHEST ONE VIEW, PORTABLE INDICATIONS: check NG placement TECHNIQUE: One view of the chest was acquired. COMPARISON: None. FINDINGS: Surgical changes and devices: An NG tube is present with the tip projected over the gastric fundus. Lungs and pleura: No pleural effusions or pneumothorax. Lungs are clear. Mediastinum: Mediastinal contours appear normal. Heart size is normal. Bones and chest wall: No suspicious bony lesions. Overlying soft tissues appear unremarkable. IMPRESSION: No acute cardiopulmonary findings. NGT projected over the gastric fundus. Dictated by: Zahra Jones M.D. on 08/26/2016 at 20:29 Approved by: Zahra Jones M.D. 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 # Acute large bowel obstruction, present on admission, active -nearly obstructing apple-core lesion in her sigmoid colon -Failed colonoscopy [address] Barton -History of colon obstruction as seen on abdominal imaging since 2013. -08/26/2016 Apple Core lesion seen on CT abdomen and pelvis with stool compaction proximal to stricture. -appreciate surgery consult. will followup with recommendations. -continue with NG tube -continue with supportive care including pain medication and antiemetics as needed -followup with pending GI consult and likely sigmoidoscopy later today # Acute leukocytosis, present on admission, resolved -suspect likely reactive to the stress of presenting symptoms -no clinical evidence of active infection at this time -followup pending cultures -stop antibiotics at this time and followup # Hyperglycemia in a known type 2 diabetic, present on admission -improved -continue low-dose correctional scale insulin # Hypertension, chronic, present on admission -We will continue Atenolol 50 mg daily -We will continue Losartan 25 mg daily # Hypothyroidism, present on admission, chronic, active -Levothyroxine 75 g daily # Insomnia -Temazepam 15 mg by mouth. Before bedtime -Melatonin 3 mg before bedtime # Transaminitis chronic, present on admission, active -followup Disposition: 3-5 days pending above issues VTE Mechanical Devices: Intermittant Pneumatic CD Alex Jeffries Aug 27, 2016 15:23
[2016-08-27] MEDS: Dextrose 5% 0.45% NaCl 1,000 ML IV SCH (15:41)
--- NOTE | 2016-08-27 15:52 | PCM.PNSURG ---
Subjective Date of Service: Aug 27, 2016 Date of Service: Aug 27, 2016 Visit Information: Reason for Visit Bowel Obstruction,Sigmoid Mass Surgery/Surgery Date Post-Op Day # Date of Admission: Aug 26, 2016 at 20:42 Hospital Day # Subjective: The patient is an 81-year-old female who presented to the emergency department due to abdominal pain and nausea, vomiting x20 dark foul vomitus. The patient has not had a good bowel movement for the past several weeks to even months. She is passing pencil-like stools and small pellet-like rocks as stool. She did have a small pellet stool this morning and she does report passing flatus. The patient has had prior CT scans in January [address] scan in October 2015 which showed sigmoid thickening, however, the patient has had a prior attempted colonoscopy by Dr. Abdoul Barton in 2003 in which it was not successful and subsequently patient has refused further endoscopic surveillance of her colon. The CT scan report in January 2014 shows irregular wall thickening involving the sigmoid colon and also cholelithiasis. The CT scan from October 2015 showed irregular wall thickening within the mid sigmoid colon similar in appearance to June 2013. This finding is suspicious for indolent neoplasm. There are also findings of cholelithiasis. The patient has had prior history of recurrent diverticulitis. Given the onset of lower abdominal pain and nausea, vomiting over the past two days, a repeat CT scan was done today and this also showed an apple core lesion within the sigmoid colon most consistent with colorectal cancer with resultant partial obstruction. There are also findings of cholelithiasis. I discussed the potential implications of these CT scan findings with the patient and her daughter today. Today Mrs. Lissette Mendoza reports transverse superpubic abdominal pain and bloating. The NG tube has helped ease her nausea. She denies fever, chills, chest pain, shortness of breath, diarrhea. Objective Objective General: Pt is awake in bed lying on her left side, obese and Well-developed. Appropriately interactive, in mild to moderate distress. HEENT: Normocephalic, atraumatic. External ears without defect. Pupils equal, round, responsive. Oropharynx free of erythema with moist mucosa. Cardiovascular: Mildly tachycardic rate with normal rhythm with no murmurs, rubs , or gallops appreciated Pulmonary: Clear to auscultation bilaterally with no crackles, wheezes, or rhonchi. Normal respiratory effort with no use of accessory muscles. Abdomen: Bowel tones present. Soft, Tender to palpation in transversely and superpubically . No hepatosplenomegaly or masses appreciated. Extremities: No clubbing, cyanosis, edema, or lymphadenopathy appreciated. Skin: Normal temperature, turgor, and texture; no rash, ulcers, or subcutaneous nodules appreciated. Neurological: Cranial nerves grossly intact. Normal muscle strength, tone, and bulk. Reflexes, coordination, and sensory function within normal limits. No known gait impairment. Psychiatric: Normal mood and affect. Alert and oriented to person, place, and time. Vital Sign- Last 8 Hours Date Time Temp Pulse Resp B/P Pulse Ox O2 Delivery O2 Flow Rate FiO2 08/27/16 14:08 37.0 75 16 139/59 95 Room Air 08/27/16 08:32 36.9 77 18 133/61 93 Room Air Intake and Output- Last 8 Hour 08/27/16 Cumulative From/Thru 07:00 08/26/16 14:40 - 08/27/16 06:41 Intake Total 770 ml 1770 ml Output Total 370 ml 370 ml Balance 400 ml 1400 ml Intake Oral 0 ml 0 ml IV Total 770 ml 1770 ml Output Urine Total 350 ml 350 ml Gastric Drainage Total 20 ml 20 ml Result Diagram: 08/27/16 0545 08/27/16 0545 Assessment & Plan Impression This is an 81-year-old female with a nearly obstructing apple-core lesion in her sigmoid colon. She has had worrisome CT scan findings dating back to June 2013, January 2014, and October 2015. The patient had a failed colonoscopy in 2003, and has since then refused further endoscopic evaluation. Gastroenterology has been consulted, and I believe their plan is to perform a sigmoidoscopy at some point. I have discussed with the patient that in this situation she may warrant an exploratory laparotomy with sigmoid resection and a colostomy. The patient is of the impression that she is 81 and she may not want to pursue surgical intervention. The patient has expressed similar opinion during her prior hospitalizations here at [facility]. I will follow up with the patient to see if she is of the same opinion. I do recommend that GI proceed with sigmoidoscopy and we can get a CEA level sent off. We should wait for the results of the sigmoidoscopy. If she has made up her mind not to pursue a surgical solution, then palliative care should be consulted. Problems: Plan This is an 81-year-old female with a nearly obstructing apple-core lesion in her sigmoid colon. She has had worrisome CT scan findings dating back to June 2013, January 2014, and October 2015. The patient had a failed colonoscopy in 2003, and has since then refused further endoscopic evaluation. I believe Gastroenterology has been consulted and will proceed with sigmoidoscopy this afternoon. Patient wishes for exploratory laparotomy with sigmoid resection and a colostomy if necessary. Patient will be NPO after midnight with possible colectomy tomorrow. Patient should be switched to full code during procedure. Resuscitation Status: DNR/DNI:Do Not Resuscitate/Intubate AMY BLACKWELL DO Aug 27, 2016 15:43
[2016-08-27] MEDS ORDERED: fentaNYL-PF 50 mCg/mL 2 mL Inj ONE (16:52)
--- NOTE | 2016-08-27 17:37 | PCM.ENDPOS ---
Procedure Date of Service: Aug 27, 2016 Physician Will Marcelino MD Pre Procedure Diagnosis: Abnormal CT Post Procedure Dx & Findings: Poor prep diverticula Procedure Procedure: After unremarkable rectal examination and getting enemas, flexible sigmoidoscopy was performed. Scope was entered and in the rectum and into the first pass into the sigmoid colon, the prep was actually quite good. There was a sharp turn and as soon as we entered here, the insufflation was not opening of the lumen. However we were able to see small lumen which we put the scope through. The scope was advanced easily and we went into the more proximal sigmoid colon. Essentially at this point, patient had too much stool. We used a lard tub washer to wash this area to break up the stools but more stools were proximal to it. We were able to go up to 45 cm from the anal verge. We came back and we looked at this area several times. It appears that there is a lumen that was narrowed and was not insufflating properly. However no malignancy was noted at that spot. Impression Poor prep and was not able to visualize anything beyond 45 cm. There was a spot on the first pass of the sigmoid colon which appeared to be narrowed and failed to insufflate properly. Recommendation I think her obstruction needs to resolve and she will need a full colonoscopy. She refused to drink the prep and have a full colonoscopy under any circumstances. I will defer the further treatment to the surgical services. Presedation Assessment Risks and Benefits Informed consent was obtained from the patient after all risks and benefits including but not limited to drug reaction, infection, pain, bleeding, perforation, as well as alternatives were discussed. Patient monitoring Continuous pulse oximetry, cardiac monitoring, blood pressure monitoring, IV access, and oxygen at 2L per nasal cannula. Periprocedural Fentanyl: Fentanyl 50mcg Incrementally Midazolam: Midazolam 2mg Incrementally Complications There were no periprocedural complications identified. Post Procedure Plan Post Procedure Recommendations The following preliminary plan is subject to change depending on the findings of the histopathologly of the tissues sent. Will Marcelino MD Aug 27, 2016 17:37
--- NOTE | 2016-08-27 17:55 | NUR ---
ENDO Patient report was given to ENDO nurse. Patient walked with 1 person assist to [facility] and was transferred to Endoscopy for sigmoidoscopy. Patient had successful Sigmoidoscopy and nurse report was called to [facility] [place]. Patient had liquid bowel movement while at Endoscopy. Patient arrived via gurney and was assisted into bed.
--- NOTE | 2016-08-27 22:03 | PROG NOTE ---
[address] [address] PROGRESS NOTE PATIENT: KWABENA CORDERO : 1935 MR#: [id number] ADMIT: 08/26/2016 JOB ID: [id number] DATE: 08/27/2016 SUBJECTIVE: I was asked to re-evaluate the patient today for ongoing discussions about her obstructive problem in the sigmoid colon. The patient was seen by Dr. Gil Funez last night and tentative plan was made for her to undergo sigmoidoscopy by Gastroenterology today. During the day, she has had a Fleet enema. She has not passed any flatus or bowel movement. She continues to have quite a bit of lower abdominal pain and is requesting Dilaudid. She denies nausea. OBJECTIVE: Body mass index 35.5, temperature 37.0, pulse 75, blood pressure 139/59, saturation 95% on room air. In general, she is sitting up in bed, in no acute distress. HEENT: Nasogastric tube is in place with scant brownish drainage. Chest is clear. Heart: Regular rate and rhythm. No murmurs. Abdomen is distended, firm, tympanitic. Some hypoactive bowel tones are present. She is moderately tender in the lower abdomen. There is no erythema of the abdominal wall. She has a right lower quadrant vertical paramedian incision without hernias. LABORATORIES: White blood cell count is 9.9, hematocrit 42.9, platelets 208, creatinine 0.56, glucose 147, albumin 3.6. IMAGING: Her CT scans of the abdomen and pelvis have been reviewed by myself going back to 2012. They all show similar appearance of a thickening and narrowing of the sigmoid colon along the left pelvic sidewall. Her most current CT is more prominent with increased fat stranding and trace free fluid. ASSESSMENT/PLAN: An 81-year-old woman with a sigmoid colon obstruction. I have spent 1 hour discussing these findings with the patient as well as going over her images and formulating a plan. We had a long discussion about her options. Based on the long time course of over four years, I personally think that the likelihood of sigmoid colon cancer is relatively low, and this most likely represents a benign diverticular stricture causing high-grade obstruction. I think she is going to require surgical intervention. I do think that sigmoidoscopy will be helpful in helping determine if there is any evidence of a malignancy by obtaining biopsies. If the area of narrowing is not particularly high-grade and can be traversed with the scope, perhaps she would get better with conservative management initially, and then could be managed electively as an outpatient. I do not expect that to be the case, and I expect them to find a high-grade narrowing. If there are no worrisome endoluminal lesions, then I think resection could be planned in a conservative manner, as appropriate for a diverticular stricture. I think she will require an open laparotomy with sigmoid colon resection as well as left ureteral stent placement. The area of narrowing seems to be on the left pelvic side wall, very close to the expected location of her left ureter. Timing of surgery is unclear. If there are biopsies taken today during sigmoidoscopy, then it would be prudent to wait for biopsy results as long as she is not decompensating. She may be ready for surgery on Thursday or Thursday in that case. If she deteriorates, she would need to have surgery sooner than that. If she makes any improvement, surgery could be delayed and potentially done as an outpatient. I do not think she is a candidate for a primary anastomosis. The plan would be sigmoid resection with end colostomy. All her questions were answered. I will discuss the case further with Dr. Gil Funez about the timing of surgical intervention and involvement of Urology. The patient's friend, Elisha, prefers Dr. Candace Sloan if a urologist does need to be involved.
[2016-08-28] MEDS: Heparin 5,000 Unit/mL Inj SUBQ SCH ×3 (06:18→21:47)
[2016-08-28 06:29] VITALS: BP 128/72; PULSE 84; RESP 18; O2SAT 92
--- NOTE | 2016-08-28 06:36 | NUR ---
Throat discomfort Pt was given throat spray over shift for complaints of a soar throat from her NG tube. Pt reports medication helps to ease the discomfort.
[2016-08-28] MEDS: Dextrose 5% 0.45% NaCl 1,000 ML IV SCH ×2 (06:56→20:11)
--- NOTE | 2016-08-28 07:58 | PCM.PNSURG ---
Subjective Visit Information: Reason for Visit Bowel Obstruction,Sigmoid Mass Surgery/Surgery Date Post-Op Day # Date of Admission: Aug 26, 2016 at 20:42 Hospital Day # Subjective: Endoscopic findings reviewed, discussed with pt and her daughter. Pt is hungry. Passing flatus. She does not want to pursue surgery at this time, perhaps there are other non-operative solutions. 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 Marcelino if she's a candidate for dilation or stenting Resuscitation Status: DNR/DNI:Do Not Resuscitate/Intubate Gil Funez MD Aug 28, 2016 07:58
[2016-08-28] MEDS: Insulin LISPRO 300 Unit/3 mL Inj SUBQ SCH ×4 (08:00→22:00)
--- NOTE | 2016-08-28 08:38 | NUR ---
NG removal NG tube was successfully removed at 8am this morning. Pt has advanced to clear diet. Bed low and call light within reach.
[2016-08-28 10:21] VITALS: BP 125/70; PULSE 76; RESP 16; O2SAT 94
--- NOTE | 2016-08-28 10:45 | NUR ---
MINDI signed GENE Moffett
[2016-08-28 14:02] VITALS: BP 129/67; PULSE 78; RESP 16; O2SAT 94
--- NOTE | 2016-08-28 15:13 | NUR ---
Social Work: Initial Assessment Data: Pt is on day 2 of hospitalization. EMR reviewed. Pt's PCP is Dr Holt, pt's insurance is Medicare with [employer] supp. EMR reviewed. Readmit score is 5, high. FOOD AND BEVERAGE ASSISTANT met with pt and daughter at bedside, role explained. Pt states she lives at [facility] where she uses a walker regularly. She states she does not drive, has no hx of HH or SNF, no LTC or VA benefits. Pt reports having AD/DPOA, FOOD AND BEVERAGE ASSISTANT requested a copy for hospital. FOOD AND BEVERAGE ASSISTANT will continue to follow. Assessment: Pt who is independent at baseline. Plan: Pt will likely d/c home via POV when medically stable, FOOD AND BEVERAGE ASSISTANT will continue to follow for possible needs. FOOD AND BEVERAGE ASSISTANT will continue to follow. GENE Moffett Addendum: 08/28/16 at 1515 by ALPHONSO HERRERA SS Amended: Links added.
--- NOTE | 2016-08-28 15:40 | NUR ---
Transfer to [facility] Pt report given to Tita Guzman on [facility], pt informed of room change. Staff assisted pt with personal belongings, pt wheeled to room 1011 on [facility].
--- NOTE | 2016-08-28 17:25 | PCM.PNMED ---
Subjective Date of Service Aug 28, 2016 Subjective GASTROENTEROLOGY PROGRESS NOTE: The patient reports to feel much better today as her abdominal pain has improved. She has been passing gas, but has not had a BM yet. She feels constipated and requests her regular home laxative regimen. Patient remains adamant about no colonoscopy, and since her symptoms have improved, she does not want surgery at this time. NGT was removed and patient was advanced to clear liquid diet this morning. She tolerates clear liquid diet well with no issue. Exam Vital Signs Vital Sign - Last Date Time Temp Pulse Resp B/P Pulse Ox O2 Delivery O2 Flow Rate FiO2 08/28/16 14:02 36.6 78 16 129/67 94 Room Air 08/27/16 17:34 4 Intake and Output 08/27/16 08/27/16 08/28/16 Cumulative From/Thru 15:00 23:00 07:00 08/26/16 14:40 - 08/28/16 06:58 Intake Total 1312 ml 1915 ml 4997 ml Output Total 725 ml 500 ml 1595 ml Balance 587 ml 1415 ml 3402 ml Intake Oral 0 ml 0 ml 0 ml IV Total 1312 ml 1915 ml 4997 ml Output Urine Total 450 ml 300 ml 1100 ml Stool Total 125 ml 125 ml Gastric Drainage Total 200 ml 220 ml Emesis 150 ml 150 ml Exam General: Patient is alert and oriented 3 resting comfortably in the hospital bed, patient's daughter is present in the room, patient speaking in full sentences. HEENT: NC/AT, eyes, PERRLA, EOMI. Mucous membrane moist. Neck: soft, supple, no adenopathy, no masses, no thyromegaly. Lungs: Bilateral lung bases with mild crackles, no wheezes, no rhonchi, no use of accessory muscles of respiration, good air movement, good respiratory effort. Heart: Regular rate and rhythm, no murmur, S1-S2 present, no rub, no click, no distant heart sounds, Abdomen: Soft, nondistended, mild tenderness to palpation in right lower quadrants. No rebound tenderness or guarding. Bowel sounds normoactive. Extremities: Pulses equal and symmetric upper/lower extremity including radial and dorsalis pedis, bilateral lower extremity with mild pitting edema. Neurologic: Grossly neurologically intact, speaking in full sentences, no focal neurological signs. Psychiatric: Mood and affect are congruent and appropriate IVs and Medications Medications Reviewed: Medications were reviewed in detail Lab and Diagnostics Result Diagram: 08/27/16 0545 08/27/16 0545 X-Rays, CTs and MRIs PROCEDURE: CT ABDOMEN AND PELVIS WITH CONTRAST IMPRESSION: 1. Apple core lesion within the sigmoid colon most consistent with colorectal cancer with resultant partial obstruction as described above. Fat stranding and trace fluid suggest microperforation. No pat pneumoperitoneum. This finding was discussed with Dr. Meraz at 6:13 PM on 08/26/16. 2. Cholelithiasis. Dictated by: Zahra Jones M.D. on 08/26/2016 at 18:02 Approved by: Zahra Jones M.D. on 08/26/2016 at 18:17 Assessment & Plan 81 yo female with a history of partial bowel blockage due to sigmoid thickening dating back to 2013, Type 2 DM, hypothyroidism, and HTN who presented to [facility] for 2 day history of severe generalized abdominal pain with nausea and vomiting. She was found to have an apple core lesion within the sigmoid colon most consistent with colorectal cancer with resultant partial obstruction on CT scan. This is increased in extent when compared with previous CT. GI service was consulted for a sigmoidoscopy. Sigmoidoscopy on 08/27/16 Impression: -Poor prep and was not able to visualize anything beyond 45 cm. -There was a spot on the first pass of the sigmoid colon which appeared to be narrowed and failed to insufflate properly. Assessments: 1. Small and large bowel obstruction secondary to sigmoid colon lesion, present on admission, active. 2. History of diverticulitis, not active. Plans: - It is likely that the high-grade obstruction is secondary to a benign diverticular stricture vs unidentified malignancy.Malignancy cannot be rule out. - I do not perform dilation or stenting. If she is interested in this, she can go to [place] for evaluation. - Her obstruction needs to resolve and she will eventually need a full colonoscopy. However, she refused to drink the prep and have a full colonoscopy under any circumstances. - We think that the definite therapy will be sigmoid resection with end colostomy. Patient refused invasive procedures at this point and she is fully aware of the risks. We will defer the further treatment to the surgical service and sign off at this point. Please contact us if you have any issue or questions. I have seen and examine the pt with the resident and agree with above. Pain Evaluation: Adequate Pain Control VTE Mechanical Devices: Intermittant Pneumatic CD Resuscitation Status: DNR/DNI:Do Not Resuscitate/Intubate Lauren Nguyen DO Aug 28, 2016 17:13 Will Marcelino MD Aug 29, 2016 11:54
--- NOTE | 2016-08-28 17:33 | PCM.PNMED ---
Subjective Date of Service Aug 28, 2016 Subjective reports positive flatus and says abdominal pain significantly improved. denies any nausea. Exam Vital Signs Vital Sign - Last Date Time Temp Pulse Resp B/P Pulse Ox O2 Delivery O2 Flow Rate FiO2 08/28/16 14:02 36.6 78 16 129/67 94 Room Air 08/27/16 17:34 4 Intake and Output 08/27/16 08/27/16 08/28/16 Cumulative From/Thru 15:00 23:00 07:00 08/26/16 14:40 - 08/28/16 06:58 Intake Total 1312 ml 1915 ml 4997 ml Output Total 725 ml 500 ml 1595 ml Balance 587 ml 1415 ml 3402 ml Intake Oral 0 ml 0 ml 0 ml IV Total 1312 ml 1915 ml 4997 ml Output Urine Total 450 ml 300 ml 1100 ml Stool Total 125 ml 125 ml Gastric Drainage Total 200 ml 220 ml Emesis 150 ml 150 ml Exam General: Alert, Cooperative, No Acute Distress Head: Normal Eyes: Scleral Anicteric Nose: Mucous Membr Moist/[place] Mouth: Mucous Membr Moist/[place] Neck: Supple Chest & Lungs: Chest Wall Normal, Clear to auscultation bilaterally Pulses: NL carotid, radial, femoral, DP, PT Abdomen: Minimally tender in lower abdomen. Non-distended, Normoactive bowel tones, Soft Extremities: No cyanosis/clubbing/edema bilat Neurological: Grossly Neurologically Intact, Normal Speech IVs and Medications Medications Reviewed: Medications were reviewed in detail Lab and Diagnostics Result Diagram: 08/27/16 0545 08/27/16 0545 X-Rays, CTs and MRIs PROCEDURE: CT ABDOMEN AND PELVIS WITH CONTRAST IMPRESSION: 1. Apple core lesion within the sigmoid colon most consistent with colorectal cancer with resultant partial obstruction as described above. Fat stranding and trace fluid suggest microperforation. No pat pneumoperitoneum. This finding was discussed with Dr. Meraz at 6:13 PM on 08/26/16. 2. Cholelithiasis. Dictated by: Zahra Jones M.D. on 08/26/2016 at 18:02 Approved by: Zahra Jones M.D. 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 # Acute large bowel obstruction, present on admission, clinically seems to be resolving -? if high-grade obstruction is secondary to a benign diverticular stricture -Failed colonoscopy [address] Barton -History of colon obstruction as seen on abdominal imaging since 2013. -08/26/2016 Apple Core lesion seen on CT abdomen and pelvis with stool compaction proximal to stricture. -Sigmoidoscopy on 08/27/16 Impression: "Poor prep and was not able to visualize anything beyond 45 cm. There was a spot on the first pass of the sigmoid colon which appeared to be narrowed and failed to insufflate properly." -appreciate surgery and GI consults. will followup with recommendations. -NG tube removed on 08/28 and patient currently tolerating liquid diet -continue with supportive care including pain medication and antiemetics as needed # Acute leukocytosis, present on admission, resolved -suspect likely reactive to the stress of presenting symptoms -no clinical evidence of active infection at this time -followup pending cultures -continue to hold antibiotics at this time and followup # Hyperglycemia in a known type 2 diabetic, present on admission -improved -continue low-dose correctional scale insulin -HgA1C 7.9 # Hypertension, chronic, present on admission -We will continue Atenolol 50 mg daily -We will continue Losartan 25 mg daily # Hypothyroidism, present on admission, chronic, active -Levothyroxine 75 g daily # Insomnia -Temazepam 15 mg by mouth. Before bedtime -Melatonin 3 mg before bedtime # Transaminitis chronic, present on admission, active -followup Disposition: pending above issues and further surgery recommendations VTE Mechanical Devices: Intermittant Pneumatic CD Resuscitation Status: DNR/DNI:Do Not Resuscitate/Intubate Alex Jeffries Aug 28, 2016 17:33
[2016-08-28 18:22] VITALS: BP 126/68; PULSE 70; RESP 16; O2SAT 95
[2016-08-28 20:15] VITALS: BP 161/83; PULSE 71; RESP 17; O2SAT 96
[2016-08-29] VITALS: BP 157/80; PULSE 68; RESP 17; O2SAT 95
--- NOTE | 2016-08-29 04:56 | NUR ---
Mentation/Anxiety Pt daughter Cyn here at start of shift, Pt states this is the "good daughter", the POA. Pt expressed later in evening that her other daughter doesn't speak to her but showed up today with her friends at ED and ran the conversation with the MD, "not letting me get any words in." Pt is afraid of having a surgery at her age, she thinks if she takes laxatives she will "get by." Explained to her what was happening with her bowel and how laxatives would affect her health. She understood. 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 She understands what a colostomy is, how to care for it, how the surgery would be and recovery. She is just scared. She realized after letting her talk about her concerns and feelings that she really has no way to solve this permanently unless she has surgery. She discussed her health and her concern that the MD was not talking to her. I advised to speak with him this a.m and express her concerns and get her answers. She said she felt much better after talking this out. POA will be in this a.m. and Pt is hoping to meet with MD while she is here. Notice placed on door that all visitors must check in at nurses station per Pt request.
[2016-08-29 06:12] VITALS: BP 149/75; PULSE 75; RESP 17; O2SAT 96
[2016-08-29] MEDS: Heparin 5,000 Unit/mL Inj SUBQ SCH ×3 (06:24→21:30)
[2016-08-29] MEDS: Insulin LISPRO 300 Unit/3 mL Inj SUBQ SCH ×4 (08:00→22:00)
[2016-08-29] MEDS: Dextrose 5% 0.45% NaCl 1,000 ML IV SCH ×2 (09:13→20:18)
[2016-08-29 09:17] VITALS: BP 174/77; PULSE 87; RESP 18; O2SAT 96
[2016-08-29] MEDS: HYDROmorphone 0.5 mg/0.5 mL iSecure Syringe IVPUSH PRN ×2 (10:02→21:55)
--- NOTE | 2016-08-29 10:26 | NUR ---
NUTRITION ASSESSMENT: ASSESS: Pt is an 81yo F admitted for bowel obstruction. She was able to have her NGT removed 08/28 and diet was advanced to CL. She is tolerating well at 75-100% x2 meals. Pt has not had a BM yet. PMHX: DM, SBO, hypothyroid, diverticulitis, colon malignancy, htn LABS: Reviewed. Bun 5, roads superintendent .45, Glu 149, Ca 8.4, Alb 3.6 MEDS: Reviewed. GI: 0 BM SKIN: Clifford 17. No major issues CURRENT WTS: 98.6kg, BMI 36.2kg/m2, admit wt 95.9kg, IBW 56.8kg DIET: CL, PO 75-100% EST. NEEDS: BMI Kcals: 1965-2160kcal/day (20-22kcal/kg) Pro: 65-85g/day (1.2-1.5g/kg IBW) NUTRITION DIAGNOSIS: 1.) Inadequate oral intake related to altered GI function as evidence by current CL diet order and previous need for bowel rest. NUTRITION INTERVENTION: 1.) Advance diet when medically appropriate 2.) Will add Ensure CL on L tray to help increase protein intake while on CL diet MONITOR / EVAL: PO, GI, diet advance, wt, labs, POC, nutrition status. Will continue to monitor per high nutrition risk guidelines
[2016-08-29 12:45] VITALS: BP 143/75; PULSE 70; RESP 16; O2SAT 97
[2016-08-29] MEDS ORDERED: Sodium Chloride LOK Flush 10 mL Syringe IVFLUSH PRN ×2 (18:05)
[2016-08-29] MEDS ORDERED: TPN Per Pharmacist XX ONE (18:05)
--- NOTE | 2016-08-29 18:52 | PCM.PNMED ---
Subjective Date of Service Aug 29, 2016 Subjective reports 2 large BMs and feeling much better today. denies any nausea. Exam Vital Signs Vital Sign - Last Date Time Temp Pulse Resp B/P Pulse Ox O2 Delivery O2 Flow Rate FiO2 08/29/16 12:45 36.8 70 16 143/75 97 Room Air 08/27/16 17:34 4 Intake and Output 08/28/16 08/28/16 08/29/16 Cumulative From/Thru 15:00 23:00 07:00 08/26/16 14:40 - 08/29/16 06:46 Intake Total 599 ml 1546 ml 1154 ml 8296 ml Output Total 900 ml 2150 ml 4645 ml Balance 599 ml 646 ml -996 ml 3651 ml Intake Oral 1274 ml 400 ml 1674 ml IV Total 599 ml 272 ml 754 ml 6622 ml Output Urine Total 900 ml 2150 ml 4150 ml Stool Total 125 ml Gastric Drainage Total 220 ml Emesis 150 ml # Bowel Movements 0 0 Exam General: Alert, Cooperative, No Acute Distress Head: Normal Eyes: Scleral Anicteric Nose: Mucous Membr Moist/[place] Mouth: Mucous Membr Moist/[place] Neck: Supple Chest & Lungs: Chest Wall Normal, Clear to auscultation bilaterally Pulses: NL carotid, radial, femoral, DP, PT Abdomen: Minimally tender in lower abdomen. Non-distended, Normoactive bowel tones, Soft Extremities: No cyanosis/clubbing/edema bilat Neurological: Grossly Neurologically Intact, Normal Speech IVs and Medications Medications Reviewed: Medications were reviewed in detail Lab and Diagnostics Result Diagram: 08/27/16 0545 08/29/16 0515 X-Rays, CTs and MRIs PROCEDURE: CT ABDOMEN AND PELVIS WITH CONTRAST IMPRESSION: 1. Apple core lesion within the sigmoid colon most consistent with colorectal cancer with resultant partial obstruction as described above. Fat stranding and trace fluid suggest microperforation. No pat pneumoperitoneum. This finding was discussed with Dr. Meraz at 6:13 PM on 08/26/16. 2. Cholelithiasis. Dictated by: Zahra Jones M.D. on 08/26/2016 at 18:02 Approved by: Zahra Jones M.D. 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 # Acute large bowel obstruction, present on admission, clinically seems to be resolving -? if high-grade obstruction is secondary to a benign diverticular stricture -failed colonoscopy [address] Barton -history of colon obstruction as seen on abdominal imaging since 2013. -08/26/2016 Apple Core lesion seen on CT abdomen and pelvis with stool compaction proximal to stricture. -sigmoidoscopy on 08/27/16 Impression: "Poor prep and was not able to visualize anything beyond 45 cm. There was a spot on the first pass of the sigmoid colon which appeared to be narrowed and failed to insufflate properly." -appreciate surgery and GI consults. will followup with recommendations. -NG tube removed on 08/28 and patient currently tolerating liquid diet -continue with supportive care including IV morphine and antiemetics as needed -per discussion with Dr. Hyatt today, tentative plan is for surgery and partial colectomy early next week. -in anticipation of surgery will start a PICC line and TPN (to be managed by pharmacy) # Acute leukocytosis, present on admission, resolved -suspect likely reactive to the stress of presenting symptoms -no clinical evidence of active infection at this time -followup pending cultures # Hyperglycemia in a known type 2 diabetic, present on admission -improved -continue low-dose correctional scale insulin -HgA1C 7.9 # Hypertension, chronic, present on admission -We will continue Atenolol 50 mg daily -We will continue Losartan 25 mg daily # Hypothyroidism, present on admission, chronic, active -Levothyroxine 75 g daily # Insomnia -Temazepam 15 mg by mouth. Before bedtime -Melatonin 3 mg before bedtime # Transaminitis chronic, present on admission, active -followup Disposition: pending above issues and further surgery recommendations VTE Mechanical Devices: Intermittant Pneumatic CD Resuscitation Status: DNR/DNI:Do Not Resuscitate/Intubate Alex Jeffries Aug 29, 2016 18:52
--- NOTE | 2016-08-29 19:14 | NUR ---
Abdominal Pain, Bowel Movement Patient reported some abdominal pain this AM, stated felt like cramping. Ordered pain medication administered, pain relieved. Later on shift patient had two large bowel movements. Patient states bowel movement brought further relief to abdomen. Care is ongoing.
[2016-08-29 20:25] VITALS: BP 153/72; PULSE 84; RESP 18; O2SAT 96
--- NOTE | 2016-08-29 22:32 | CONS ---
[address] [address] CONSULTATION REPORT PATIENT: KWABENA CORDERO : 1935 MR#: [id number] ADMIT: 08/26/2016 JOB ID: [id number] DATE OF SERVICE: 08/29/2016 SUBJECTIVE: This is an 81-year-old woman with a sigmoid colon stricture causing obstruction. She has had this stricture for many years. In the past, she has refused colonoscopies. Colonoscopy was attempted two days ago by Dr. Marcelino. The stricture was very narrow and he was only able to pass a pediatric colonoscope through it. She was unable to be prepped and, therefore, little could be seen proximal to the stricture. It appeared benign. Her overall clinical picture is that it is benign as well, as it has similar appearance on CT scans over the course of several years and has not grown as a malignancy would be expected. It is most likely related to chronic diverticulitis. Dr. Marcelino inserted a substantial amount of liquid during the colonoscopy in order to a liquify her stool to improve her symptoms of obstruction. As a result, just before I met her today, she had a large bowel movement and was feeling so much better. Previous notes state that she has refused surgery in the past; however, today, she very much would like to have an operation and she requested to be seen by the linesperson surgeon, myself, in order to discuss surgical options. She is not in any pain and not currently vomiting. She is tolerating sips of clear liquids. She has a new diagnosis of diabetes with a hemoglobin A1c of 7.9. Her albumin is 3.6. She says her last normal meal was approximately Thursday or Thursday of last week, which was five or six days ago. Her vital signs have been normal. PAST MEDICAL HISTORY: Is reviewed and includes diabetes, hypothyroidism, recurrent diverticulitis, peripheral neuropathy, hypertension, appendectomy, right rotator cuff repair, and a failed attempt at colonoscopy in 2004. MEDICATIONS: Are reviewed and include aspirin, trazodone, insulin, Dilaudid, heparin, Afrin. OBJECTIVE: Temperature 36.8, heart rate 70, blood pressure 143/75, respiratory rate of 16, saturation 97% on room air. General: Awake and alert, no acute distress. Head: Normocephalic. Neck: Supple. Cardiac: Regular rate and rhythm. Respiratory: Breathing easily on room air. Abdomen: Soft, mild distention, nontender. IMAGING: A CT scan from August 26, 2016 is reviewed personally and reveals a stricture in the sigmoid colon. Previous CT scans were also reviewed and it has a similar appearance in past years. ASSESSMENT: An 81-year-old woman with a diverticular stricture causing recurrent obstruction of her sigmoid colon. Although she had a bowel movement today, her lens finisher, Dr. Marcelino, essentially gave her an enema during her colonoscopy to improve her ability to pass stool, but based on the appearance of the stricture, he expects that once she starts having normal stool again she will most likely become obstructed. The patient prefers surgical intervention at this point given all of the issues that she has encountered with the stricture. PLAN: I recommend sigmoid colectomy with end colostomy, as has been previously recommended by my partners, Dr. Macias and Dr. Funez. I set up a plan as follows: 1. Laparoscopic sigmoid colectomy is booked for 1 p.m. on Thursday, September 01, 2016. I have contacted Dr. Sloan of Urology regarding ureteral stent placement at that time in anticipation of the procedure. 2. She should remain on a liquid diet with Impact supplements over the course of the weekend. 3. GoLYTELY prep to begin Thursday and proceed for the two days leading up to the procedure. This plan was discussed with Dr. Marcelino, who does not believe that she will be able to tolerate drinking the entirety of the GoLYTELY prep in the day leading up to the procedure given past experience, but it may be possible if she is given two days to complete it. 4. Antibiotic prep will be prescribed for 7 p.m. and 11 p.m. on Thursday night. 5. PICC with TPN given that her last normal meal was approximately six days ago, and she will most likely not be able to have any normal meals over the course of this weekend, and will likely take a minimum of 2-3 days before she is eating regularly after surgery. 6. Continue blood glucose control with all blood sugars less than 180 leading up to surgery. 7. This plan was discussed in detail with the patient and her daughter. We discussed the risks of bleeding, infection, wound complications, conversion to open, and difficulty with stoma appliances in the future. We also discussed the implications of end colostomy and the type of operation required to take it down eventually if that is what she would want. She understands all of this and elects to proceed. The decision to operate was made today. 90 minutes was spent on this patient visit today, greater than 50% in counseling and/or coordination of care. LEOLA
--- NOTE | 2016-08-30 02:55 | NUR ---
Request/Refusal Patient A&OX3 and pleasant this evening. Patient has asked that no IV fluids are infused this evening. Pt has D5 1/2 NS @75 ordered. States that her IV "constantly beeps" and that she would like to get a good nights sleep this evening. Pt was offered a new IV site to be placed this evening, since her IV in the wrist is tender and constantly occludes, but has denies new IV at this time. After receiving 0.5mg of Dilaudid IVP for pain, patient denied evening heparin dose, stating that she is finally comfortable and does not want it. Will continue to monitor, and continue Q 1 hour checks.
[2016-08-30 05:45] VITALS: BP 148/75; PULSE 75; RESP 22; O2SAT 96
[2016-08-30] MEDS: Heparin 5,000 Unit/mL Inj SUBQ SCH ×3 (06:15→22:14)
[2016-08-30 06:16] LABS: Mean Corpuscular Volume 103.9 fL (81-100)
[2016-08-30 06:41] LABS: Magnesium 2.1 mg/dL (1.6-2.6)
[2016-08-30] MEDS ORDERED: PEG/Electrolytes 4,000 mL Solution PO ONE (08:00)
[2016-08-30] MEDS: Insulin LISPRO 300 Unit/3 mL Inj SUBQ SCH ×4 (08:00→22:00)
--- NOTE | 2016-08-30 09:53 | PCM.PNSURG ---
Subjective Visit Information: Reason for Visit Bowel Obstruction,Sigmoid Mass Surgery/Surgery Date Post-Op Day # Date of Admission: Aug 26, 2016 at 20:42 Hospital Day # Subjective: has agreed to surgery, not sure if she wants to PICC line, did have 2 "massive" BM yesterday Objective Objective Awake in bed Abd: obese, soft Vital Sign- Last 8 Hours Date Time Temp Pulse Resp B/P Pulse Ox O2 Delivery O2 Flow Rate FiO2 08/30/16 05:45 36.5 75 22 148/75 96 Room Air Intake and Output- Last 8 Hour 08/30/16 Cumulative From/Thru 07:00 08/26/16 14:40 - 08/30/16 06:03 Intake Total 9924 ml Output Total 5345 ml Balance 4579 ml Intake Oral 2434 ml IV Total 7490 ml Output Urine Total 4850 ml Stool Total 125 ml Gastric Drainage Total 220 ml Emesis 150 ml # Bowel Movements 2 Result Diagram: 08/30/16 0535 08/30/16 0535 Assessment & Plan Impression Diverticular stricture Obesity DM Problems: Plan Impact nutrition Hopefully PICC will be placed today Start 2-day po bowel prep Abx prep on Thursday night Planned surgery on Thu with utereral stent by Urology Resuscitation Status: DNR/DNI:Do Not Resuscitate/Intubate Gil Funez MD Aug 30, 2016 09:53
[2016-08-30] MEDS: Dextrose 5% 0.45% NaCl 1,000 ML IV SCH ×2 (10:05→23:25)
[2016-08-30] MEDS: HYDROmorphone 0.5 mg/0.5 mL iSecure Syringe IVPUSH PRN ×2 (10:40→22:24)
--- NOTE | 2016-08-30 12:41 | NUR ---
MINDI MINDI signed
--- NOTE | 2016-08-30 12:43 | DRSVH ---
PROCEDURE: X-RAY PICC LINE PLACEMENT BY NURSE ([id number]) INDICATIONS: for TOTAL PARENTERAL NUTRITION COMPARISON: None. FINDINGS: PICC was placed by the intravenous therapy team from the right side. Fluoroscopic spot fi lm demonstrates tip of PICC i is projected over the cavoatrial junction. IMPRESSION: Tip of PICC is projected over the cavoatrial junction. Dictated by: Zahra Jones M.D. on 08/30/2016 at 12:41 Approved by: Zahra Jones M.D. on 08/30/2016 at 12:41
--- NOTE | 2016-08-30 14:35 | PCM.PNMED ---
Subjective Date of Service Aug 30, 2016 Subjective Patient seen and examined at bedside. No significant overnight events. No new complaints . No chest pain, no shortness of breath , no fever, no chills. Tolerating clear liquid diet. No nausea, no vomiting Exam Vital Signs Vital Sign - Last Date Time Temp Pulse Resp B/P Pulse Ox O2 Delivery O2 Flow Rate FiO2 08/30/16 05:45 36.5 75 22 148/75 96 Room Air 08/27/16 17:34 4 Intake and Output 08/29/16 08/29/16 08/30/16 Cumulative From/Thru 15:00 23:00 07:00 08/26/16 14:40 - 08/30/16 06:03 Intake Total 1628 ml 9924 ml Output Total 700 ml 5345 ml Balance 928 ml 4579 ml Intake Oral 760 ml 2434 ml IV Total 868 ml 7490 ml Output Urine Total 700 ml 4850 ml Stool Total 125 ml Gastric Drainage Total 220 ml Emesis 150 ml # Bowel Movements 2 2 Exam General: No acute distress. In bed comfortably, anxious HEENT: PERRL . Sclerae is anicteric Mouth : Moist oropharyngeal mucosa. No no oral thrush Neck: supple, trachea is midline . no cervical lymphadenopathy Chest:clear to auscultation and percussion. There are no rales, rhonchi, wheezes or rubs. Heart: S1, S2 regular Rate, rhythm is regular. There is no murmur, rub or gallop. Abdomen: Soft, non-tender, non-distended. Normal bowel sounds on quadrant Extremities: No edema, no cyanosis, no calf tenderness Neurologic: Grossly non focal.AAO x 3 IVs and Medications Medications Reviewed: Medications were reviewed in detail Lab and Diagnostics Result Diagram: 08/30/1635 08/30/16 0535 X-Rays, CTs and MRIs PROCEDURE: CT ABDOMEN AND PELVIS WITH CONTRAST IMPRESSION: 1. Apple core lesion within the sigmoid colon most consistent with colorectal cancer with resultant partial obstruction as described above. Fat stranding and trace fluid suggest microperforation. No pat pneumoperitoneum. This finding was discussed with Dr. Meraz at 6:13 PM on 08/26/16. 2. Cholelithiasis. Dictated by: Zahra Jones M.D. on 08/26/2016 at 18:02 Approved by: Zahra Jones M.D. 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 1.- Acute large bowel obstruction, present on admission -Possibly benign diverticular stricture -failed colonoscopy [address] Barton -history of colon obstruction as seen on abdominal imaging since 2013. -08/26/2016 Apple Core lesion seen on CT abdomen and pelvis with stool compaction proximal to stricture. -appreciate surgery and GI consults. - Symptoms improved . On clear liquid diet and tolerating -continue with supportive care including IV morphine and antiemetics as needed -Laparoscopy sigmoidectomy scheduled for Friday 09/01 - Patient needs PICC line for TPN in the interim but she declined for now . 2.- Acute leukocytosis, present on admission, resolved -suspect likely reactive to the stress of presenting symptoms -no clinical evidence of active infection at this time -followup pending cultures. Patient is afebrile 3. Hyperglycemia in a known type 2 diabetic, present on admission -improved -continue low-dose correctional scale insulin -HgA1C 7.9 4. Hypertension, chronic, present on admission -We will continue Atenolol 50 mg daily -We will continue Losartan 25 mg daily 5. Hypothyroidism, present on admission, chronic, active -Levothyroxine 75 g daily 6. Insomnia -Temazepam 15 mg by mouth. Before bedtime -Melatonin 3 mg before bedtime 7. Transaminitis chronic, present on admission: mild and improved Stable. Plan of care as above pending surgical intervention Case discussed with surgery Dr. POMPA VTE Mechanical Devices: Intermittant Pneumatic CD Resuscitation Status: DNR/DNI:Do Not Resuscitate/Intubate Time spent 25 minutes Michael Knowles MD Aug 30, 2016 14:35
--- NOTE | 2016-08-30 14:49 | NUR ---
NUTRITION ASSESSMENT: ASSESS: Pt is an 81 YO female admitted with abdominal cramps, severe nausea and several episodes of vomiting without remission until NG tube placed. High grade large bowel obstruction present on admission. She was able to have her NGT removed 08/28 and diet was advanced to clear liquids, which she is tolerating well. Laparoscopy sigmoidectomy scheduled for Thursday, along with ureteral stent placement by urology. PICC line to be placed to initiate TPN; however, notes indicating patient may be refusing PICC placement. TPN orders discussed with pharmacy this morning. PMHX: DM, SBO, hypothyroid, diverticulitis, colon malignancy, htn. LABS: Reviewed. BUN 5, Cr 0.38, Glu 122, A1c 7.9, Ca 7.3. MEDS:Reviewed. Flagyl. GI: 2 massive BM's noted this morning. SKIN: Clifford 18. No major issues. WT: 96.8 kg, BMI 35.0 kg/m2, admit wt 95.9kg, IBW 56.8kg DIET: Clear liquids. EST. NEEDS: BMI Kcals: 1965-2160kcal/day (20-22kcal/kg) Pro: 65-85g/day (1.2-1.5g/kg IBW) NUTRITION DIAGNOSIS: 1) Inadequate oral intake related to altered GI function as evidence by current CL diet order and previous need for bowel rest - PERSISTS. NUTRITION INTERVENTION: 1) Advance diet when medically appropriate 2) Will add Ensure CL on L tray to help increase protein intake while on CL diet 3) TPN recommendations discussed with pharmacy this morning, as follows: 190 g dextrose, 40 g amino acid, 20 g lipid, which will meet approx. 50% of her needs. 4) Once potential refeeding risk resolved, recommend advance macronutrient component of TPN to 380 g dextrose, 80 g amino acid, 40 g lipid, which would provide 2012 kcal, 80 g protein, sufficient to meet approx. 100% nutrient needs. 5) Once diet advanced, and pt. meeting approx. 50% of her nutrient needs orally, recommend taper TPN appropriately. MONITOR / EVAL: TPN start / tolerance, PO, GI, diet advance, wt, labs, POC, nutrition status. Will continue to monitor per high nutrition risk guidelines
[2016-08-30 15:02] VITALS: BP 161/58; PULSE 79; RESP 20; O2SAT 95
--- NOTE | 2016-08-30 16:06 | PCM.CONPHA ---
Subjective Date of Service: Aug 30, 2016 TPN Reason for Pharmacy Consult: TPN Management Assessment/Plan Assessment/Plan Today's admixture to be hung @2100: PARENTERAL NUTRITION ORDERS 1 31-Aug-15 Standard Hang Time: 2100 Substrates Total kcal: 1006 AMINO ACIDS 40 g DEXTROSE 190 g Total Volume (mL): 1000 LIPIDS 20 g Sterile Water for Injection QS mL To Infuse Over (hrs): 24 Total Volume 1000 mL At at a rate of (mL/hr): 42 Additives Sodium Chloride 60 mEq "typical" daily requirements Sodium Acetate 20 mEq Sodium 50-120mEq Potassium Chloride 40 mEq Potassium 60-120mEq Potassium Phosphate mEq Phosphate 20-40mEq Calcium Gluconate 9 mEq Magnesium 8-32mEq Magnesium Sulfate 8 mEq Calcium 9-22mEq Acetate* 80-120mEq Chloride* 80-120mEq Regular Insulin units *Depending on acid-base status Famotidine mg Multivitamins 1 std dose Insulin Regimen Trace Elements 1 std dose none Thiamine mg Regular Low Intensity Subcut Folic Acid mg Regular Medium Intensity Subcut Ascorbic Acid mg Regular High Intensity Subcut Regular Insulin Infusion Other: Kendell Joyce Aug 30, 2016 16:06
--- NOTE | 2016-08-30 16:09 | NUR ---
PICC/Bowel prep pt very anxious about PICC placement, talked with Pt, had IV therapy talk with pt, pt agreed to have PICC placed, pt off floor for PICC placement around noon. Pt started Colyte about 1300, encouraged to sip on it.
[2016-08-30] MEDS: Total Parenteral Nutrition 1 BAG IV SCH (21:00)
[2016-08-30 21:50] VITALS: BP 184/78; PULSE 84; RESP 18; O2SAT 95
[2016-08-31] VITALS (7 sets, daily range): BP systolic 117–142; BP diastolic 75–84; PULSE 73–88; RESP 17–20; O2SAT 95–96
[2016-08-31] MEDS: Heparin 5,000 Unit/mL Inj SUBQ SCH ×3 (05:53→21:31)
[2016-08-31 05:59] LABS: Magnesium 1.9 mg/dL (1.6-2.6); Phosphorus 2.5 mg/dL (2.5-4.9)
[2016-08-31] MEDS ORDERED: KCl 40 mEq/100 mL Premix (K 3 - 3.7 & Creat < 2) IV ONE (06:55)
--- NOTE | 2016-08-31 07:20 | NUR ---
Concerns for Future Pt has questions about colostomy and PICC; function and effect on quality of life are discussed and pt is receptive and understanding. TPN infusing via picc, pt encouraged to drink colyte but she does not want any PO fluids at this time due to difficulty getting up to bedside commode at [facility]. No SOB or chest pain. Pt states she is hungry but not nauseated, tolerates clear liquids at this time. Care continues
[2016-08-31] MEDS ORDERED: Potassium Chloride Inj 20 MEQ in Dextrose 5% 250 ML IV ONE (07:30)
[2016-08-31] MEDS: Insulin LISPRO 300 Unit/3 mL Inj SUBQ SCH ×4 (08:07→21:35)
[2016-08-31] MEDS: TPN Per Pharmacist XX SCH (09:05)
--- NOTE | 2016-08-31 11:13 | PCM.PNSURG ---
Subjective Visit Information: Reason for Visit Bowel Obstruction,Sigmoid Mass Surgery/Surgery Date sigmoid colectomy 09/01/16 Post-Op Day # Date of Admission: Aug 26, 2016 at 20:42 Hospital Day # Subjective: had PICC line placed and started on TPN, had another BM this morning, started bowel prep yesterday Objective Objective Awake Sitting up in chair Abd: benign Vital Sign- Last 8 Hours Date Time Temp Pulse Resp B/P Pulse Ox O2 Delivery O2 Flow Rate FiO2 08/31/16 08:29 80 08/31/16 07:50 36.5 80 17 136/84 96 Room Air 08/31/16 06:50 36.9 74 18 128/78 96 Room Air Intake and Output- Last 8 Hour 08/31/16 Cumulative From/Thru 07:00 08/26/16 14:40 - 08/31/16 06:50 Intake Total 650 ml 63563 ml Output Total 1900 ml 54105 ml Balance -1250 ml 1117 ml Intake Oral 650 ml 4072 ml IV Total 7490 ml Output Urine Total 1900 ml 9950 ml Stool Total 125 ml Gastric Drainage Total 220 ml Emesis 150 ml # Voids 6 9 # Bowel Movements 0 5 Result Diagram: 08/30/16 0535 08/31/16 0520 Assessment & Plan Impression Diverticular stricture Problems: Plan Continue TPN Impact nutrition Continue bowel prep as tolerated Abx bowel prep tonight Plan for surgery tomorrow with Dr. Hyatt Pt would prefer just 1 operation vs. 2 operations. Resuscitation Status: DNR/DNI:Do Not Resuscitate/Intubate Gil Funez MD Aug 31, 2016 11:12
--- NOTE | 2016-08-31 11:35 | PCM.PNMED ---
Subjective Date of Service Aug 31, 2016 Subjective Follow-up for bowel obstruction. Patient seen and examined at bedside. She is status post PICC line placement and on TPN which she is tolerating well so far. Normal terminal pain, no nausea, no vomiting, no fever, no chills. She is scheduled for surgery tomorrow Exam Vital Signs Vital Sign - Last Date Time Temp Pulse Resp B/P Pulse Ox O2 Delivery O2 Flow Rate FiO2 08/31/16 08:29 80 08/31/16 07:50 36.5 17 136/84 96 Room Air 08/27/16 17:34 4 Intake and Output 08/30/16 08/30/16 08/31/16 Cumulative From/Thru 15:00 23:00 07:00 08/26/16 14:40 - 08/31/16 06:50 Intake Total 240 ml 748 ml 650 ml 46172 ml Output Total 1200 ml 2000 ml 1900 ml 65295 ml Balance -960 ml -1252 ml -1250 ml 1117 ml Intake Oral 240 ml 748 ml 650 ml 4072 ml IV Total 7490 ml Output Urine Total 1200 ml 2000 ml 1900 ml 9950 ml Stool Total 125 ml Gastric Drainage Total 220 ml Emesis 150 ml # Voids 3 6 9 # Bowel Movements 2 1 0 5 Exam General: No acute distress. In bed comfortably, anxious . AAO x 3 Mouth : Moist oropharyngeal mucosa. No no oral thrush Neck: supple, trachea is midline . no cervical lymphadenopathy , no JVD Chest:clear to auscultation and percussion. Heart: S1, S2 regular Rate, rhythm is regular. Abdomen: Soft, non-tender, non-distended. Normal bowel sounds all quadrants Extremities: No edema, no cyanosis, no calf tenderness Skin : No rash, no ulcers Neurologic: Grossly Intact IVs and Medications Medications Reviewed: Medications were reviewed in detail Lab and Diagnostics Result Diagram: 08/30/16 0535 08/31/16 0520 X-Rays, CTs and MRIs PROCEDURE: CT ABDOMEN AND PELVIS WITH CONTRAST IMPRESSION: 1. Apple core lesion within the sigmoid colon most consistent with colorectal cancer with resultant partial obstruction as described above. Fat stranding and trace fluid suggest microperforation. No pat pneumoperitoneum. This finding was discussed with Dr. Meraz at 6:13 PM on 08/26/16. 2. Cholelithiasis. Dictated by: Zahra Jones M.D. on 08/26/2016 at 18:02 Approved by: Zahra Jones M.D. 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 1.- Acute large bowel obstruction, present on admission -Possibly benign diverticular stricture -failed colonoscopy [address] Barton -history of colon obstruction as seen on abdominal imaging since 2013. -08/26/2016 Apple Core lesion seen on CT abdomen and pelvis with stool compaction proximal to stricture. -appreciate surgery and GI consults. - Symptoms improved . On clear liquid diet and tolerating -continue with supportive care including IV morphine and antiemetics as needed -Laparoscopy sigmoidectomy scheduled for Friday 09/01 -White male PICC line inserted and patient started on TPN 2.- Acute leukocytosis, present on admission, resolved -suspect likely reactive to the stress of presenting symptoms -no clinical evidence of active infection at this time -followup pending cultures. Patient is afebrile 3. Hyperglycemia in a known type 2 diabetic, present on admission -improved -continue low-dose correctional scale insulin -HgA1C 7.9 4. Hypertension, chronic, present on admission -We will continue Atenolol 50 mg daily -We will continue Losartan 25 mg daily 5. Hypothyroidism, present on admission, chronic, active -Levothyroxine 75 g daily 6. Insomnia -Temazepam 15 mg by mouth. Before bedtime -Melatonin 3 mg before bedtime 7. Transaminitis chronic, present on admission: mild and improved 8. Hypokalemia : Replace potassium PRN Stable. Plan of care as above pending surgical intervention Case discussed with surgery Dr. POMPA VTE Mechanical Devices: Intermittant Pneumatic CD Resuscitation Status: DNR/DNI:Do Not Resuscitate/Intubate Time spent 25 minutes Michael Knowles MD Aug 31, 2016 11:35
[2016-08-31] MEDS: Dextrose 5% 0.45% NaCl 1,000 ML IV SCH (12:45)
--- NOTE | 2016-08-31 16:17 | NUR ---
Social Work: Brief Note Data & Assessment: EMR reviewed. Patient admitted for Bowel Obstruction and sigmoid mass per H&P. Pt is on day 5 of hospitalization and patient is not medically stable for discharge. Patient is scheduled for NG tube placement on 08/31/16. Patient is likely to discharge back to [facility] when medically stable. SW will continue to follow. Plan: Patient will discharge to [facility] when medically stable. SW will continue to follow. Alma Tompkins LMSW, NADINE
--- NOTE | 2016-08-31 16:44 | PCM.PHAPRO ---
Progress Date of Service: Aug 31, 2016 TPN A/ Potassium was low this morning at 3.3 -- 40 meq rider was given. Content was also increased in the TPN. All other electrolytes WNL. Today's admixture: PARENTERAL NUTRITION ORDERS 2 31-Aug-16 Standard Hang Time: 2100 Substrates Total kcal: 1006 AMINO ACIDS 40 g DEXTROSE 190 g Total Volume (mL): 1000 LIPIDS 20 g Sterile Water for Injection QS mL To Infuse Over (hrs): 24 Total Volume 1000 mL At at a rate of (mL/hr): 42 Additives Sodium Chloride 70 mEq "typical" daily requirements Sodium Acetate 30 mEq Sodium 50-120mEq Potassium Chloride 60 mEq Potassium 60-120mEq Potassium Phosphate mEq Phosphate 20-40mEq Calcium Gluconate 9 mEq Magnesium 8-32mEq Magnesium Sulfate 8 mEq Calcium 9-22mEq Acetate* 80-120mEq Chloride* 80-120mEq Regular Insulin units *Depending on acid-base status Famotidine mg Multivitamins 1 std dose Insulin Regimen Trace Elements 1 std dose none Thiamine mg Regular Low Intensity Subcut Folic Acid mg Regular Medium Intensity Subcut Ascorbic Acid mg Regular High Intensity Subcut Regular Insulin Infusion Kendell Joyce Aug 31, 2016 16:44
[2016-08-31] MEDS: Total Parenteral Nutrition 1 BAG IV SCH (21:48)
[2016-09-01] VITALS (11 sets, daily range): BP systolic 130–173; BP diastolic 76–93; PULSE 75–86; RESP 12–20; O2SAT 96–100
[2016-09-01] MEDS: Dextrose 5% 0.45% NaCl 1,000 ML IV SCH (02:05)
[2016-09-01] MEDS: Heparin 5,000 Unit/mL Inj SUBQ SCH ×2 (06:11→13:30)
--- NOTE | 2016-09-01 07:15 | NUR ---
Bowel Prep/anxiety Pt has anxiety regarding goLytely prep, does not want to complete final cup and a half of fluid. NPO at midnight for surgery thursday. Pt given final dose of neomycin and flagyl PO at 0035, when available from pharmacy. Pt is very agitated and anxious when she has loose BM and cannot control them. TPN infusing without issue. No SOB or chest pain, no N/V at this time. Care continues
[2016-09-01] MEDS: Insulin LISPRO 300 Unit/3 mL Inj SUBQ SCH ×3 (07:22→17:30)
[2016-09-01 08:04] LABS: Phosphorus 1.7 mg/dL (2.5-4.9)
[2016-09-01] MEDS: TPN Per Pharmacist XX SCH (08:30)
--- NOTE | 2016-09-01 08:46 | PCM.PNMED ---
Subjective Date of Service Sep 01, 2016 Subjective Follow up for bowel obstruction. Patient seen and examined at bedside. She is quite anxious about her surgery . She has no chest pain, no SOB. Multiple BM overnight with no formed material . She is not fully complaint with the bowel prep though . Exam Vital Signs Vital Sign - Last Date Time Temp Pulse Resp B/P Pulse Ox O2 Delivery O2 Flow Rate FiO2 09/01/16 07:21 36.9 75 18 130/80 97 Room Air 08/27/16 17:34 4 Intake and Output 08/31/16 08/31/16 09/01/16 Cumulative From/Thru 15:00 23:00 07:00 08/26/16 14:40 - 09/01/16 00:45 Intake Total 2242 ml 81087 ml Output Total 1030 ml 17351 ml Balance 1212 ml 2329 ml Intake Oral 1600 ml 5672 ml IV Total 100 ml 7590 ml TPN/PPN 542 ml 542 ml Output Urine Total 1030 ml 55401 ml Stool Total 125 ml Gastric Drainage Total 220 ml Emesis 150 ml # Voids 9 # Bowel Movements 5 10 Exam General: No acute distress. sitting in chair comfortably Mouth : Moist oropharyngeal mucosa. No no oral thrush Neck: supple, trachea is midline . no cervical lymphadenopathy , no JVD Chest: Normal respiratory effort. No chest wall tenderness Lungs : clear to auscultation bilaterally. No wheezing Heart: S1, S2 regular Rate, rhythm is regular. Abdomen: Soft, non-tender, non-distended. Normal bowel sounds all quadrants Extremities: No edema, no cyanosis, no calf tenderness Neurology: Grossly Intact. AAO x 3 IVs and Medications Medications Reviewed: Medications were reviewed in detail Lab and Diagnostics Result Diagram: 08/30/16 0535 09/01/16 0724 X-Rays, CTs and MRIs PROCEDURE: CT ABDOMEN AND PELVIS WITH CONTRAST IMPRESSION: 1. Apple core lesion within the sigmoid colon most consistent with colorectal cancer with resultant partial obstruction as described above. Fat stranding and trace fluid suggest microperforation. No pat pneumoperitoneum. This finding was discussed with Dr. Meraz at 6:13 PM on 08/26/16. 2. Cholelithiasis. Dictated by: Zahra Jones M.D. on 08/26/2016 at 18:02 Approved by: Zahra Jones M.D. 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 1.- Acute large bowel obstruction, present on admission -Possibly benign diverticular stricture -failed colonoscopy [address] Barton -history of colon obstruction as seen on abdominal imaging since 2013. -08/26/2016 Apple Core lesion seen on CT abdomen and pelvis with stool compaction proximal to stricture. -appreciate surgery and GI consults. - Symptoms improved . On clear liquid diet and tolerating -continue with supportive care including IV morphine and antiemetics as needed -Laparoscopy sigmoidectomy scheduled for today 9 09/01/2016) -On TPN in the interim until she resume PO intake . 2.- Acute leukocytosis, present on admission, resolved 3. Hyperglycemia in a known type 2 diabetic, present on admission -improved -continue low-dose correctional scale insulin -HgA1C 7.9 4. Hypertension, chronic, present on admission -Atenolol 50 mg daily snd Losartan 25 mg daily 5. Hypothyroidism, present on admission, chronic, active -Levothyroxine 75 g daily 6. Insomnia -Temazepam 15 mg by mouth. Before bedtime -Melatonin 3 mg before bedtime 7. Transaminitis chronic, present on admission: mild and improved 8. Hypokalemia : Replace potassium PRN Hemodynamically and clinically stable. Patient is scheduled for laparoscopic sigmoidectomy today VTE Mechanical Devices: Intermittant Pneumatic CD Resuscitation Status: DNR/DNI:Do Not Resuscitate/Intubate Time spent 25 minutes Michael Knowles MD Sep 01, 2016 08:46
[2016-09-01] MEDS ORDERED: fentaNYL-PF 50 mCg/mL 2 mL Inj ONE (09:12)
[2016-09-01] MEDS ORDERED: Neostigmine 1 mg/mL 10 mL Inj ONE (09:12)
[2016-09-01] MEDS ORDERED: Propofol 10,000 mCg/mL 20 mL Inj ONE (09:12)
[2016-09-01] MEDS ORDERED: Remifentanil 1 mg/3 mL Inj ONE (09:12)
[2016-09-01] MEDS ORDERED: Ondansetron 2 mg/mL 2 mL Inj ONE (09:12)
[2016-09-01] MEDS ORDERED: Glycopyrrolate 0.2 MG/ML 1mL Inj ONE (09:12)
[2016-09-01] MEDS ORDERED: Rocuronium 10 mg/mL 5 mL Inj ONE (09:12)
[2016-09-01] MEDS ORDERED: Phenylephrine/NS 100 mCg/mL 10 mL Syringe IVPUSH ONE (09:12)
[2016-09-01] MEDS ORDERED: MeTOProlol 1 mg/mL 5 mL Inj ONE (09:12)
[2016-09-01] MEDS ORDERED: Succinylcholine Chloride 20 mg/mL 5 mL Inj ONE (09:12)
[2016-09-01] MEDS ORDERED: Morphine PF 1 mg/mL 10 mL Inj ONE (09:12)
--- NOTE | 2016-09-01 09:12 | NUR ---
Nausea Patient reported nausea. 4 mg of ondansetron given. Patient denies pain at this time. Patient up in chair and repositions self for comfort. Call light and tray table within reach. Will continue to monitor patient hourly.
--- NOTE | 2016-09-01 10:29 | NUR ---
NUTRITION FOLLOW UP: ASSESS: Pt is an 81 YO female admitted with bowel obstruction, TPN started 08/30, pt to undergo sigmoidectomy today per surgery notes. TPN continues at 50% goal rate, some electrolyte abnormalities. PMHX: DM, SBO, hypothyroid, diverticulitis, colon malignancy, htn. LABS: Reviewed. Glu 180, Ca 9.1, Phos 1.7, Mg 2.0 MEDS:Reviewed. Flagyl. GI: SKIN: Clifford 18. No major issues. WT: 97.7kg, BMI 35.8 kg/m2, admit wt 95.9kg, IBW 56.8kg DIET: Clear liquids. PO 10-25% EST. NEEDS: BMI Kcals: 1965-2160kcal/day (20-22kcal/kg) Pro: 65-85g/day (1.2-1.5g/kg IBW) NUTRITION DIAGNOSIS: 1) Inadequate oral intake related to altered GI function as evidence by current CL diet order and previous need for bowel rest - PERSISTS. Pt on TPN. NUTRITION INTERVENTION: 1) Continue TPN as ordered: 190 g dextrose, 40 g amino acid, 20 g lipid, which will meet approx. 50% of her needs. 4) Once potential refeeding risk resolved,possibly 09/02: recommend advance macronutrient component of TPN to 380 g dextrose, 80 g amino acid, 40 g lipid, which would provide 2012 kcal, 80 g protein, sufficient to meet approx. 100% nutrient needs. 5) Once diet advanced, and pt. meeting approx. 50% of her nutrient needs orally, recommend taper TPN appropriately. MONITOR / EVAL: TPN tolerance/adjustment, PO, GI, diet advance, wt, labs, POC, nutrition status. Will continue to monitor per high nutrition risk guidelines Addendum: 09/02/16 at [address] Recommend increasing TPN today to 225 g dextrose, 80 g amino acids and 40 g lipids to provide 1485 kcals and 80 g protein per day. Will continue to monitor TPN tolerance/advancement as well as po intake.
--- NOTE | 2016-09-01 10:48 | PCM.PHAPRO ---
Progress TPN Management: -pt is receiving TPN for inadequate oral intake due to acute large bowel obstruction -will be going to surgery today for sigmoidectomy -macronutrients will remain the same for today (conferring with nutrition recommendations) -will add phosphate 40meq to TPN formula -Plan: Day 3 formula for this evening: PARENTERAL NUTRITION ORDERS 3 01-Sep-16 Standard Hang Time: 2100 Substrates Total kcal: 1006 AMINO ACIDS 40 g DEXTROSE 190 g Total Volume (mL): 1500 LIPIDS 20 g Sterile Water for Injection QS mL To Infuse Over (hrs): 24 Total Volume 1500 mL At at a rate of (mL/hr): 63 Additives Sodium Chloride 70 mEq "typical" daily requirements Sodium Acetate 30 mEq Sodium 50-120mEq Potassium Chloride 40 mEq Potassium 60-120mEq Potassium Phosphate 40 mEq Phosphate 20-40mEq Calcium Gluconate 9 mEq Magnesium 8-32mEq Magnesium Sulfate 8 mEq Calcium 9-22mEq Acetate* 80-120mEq Chloride* 80-120mEq Regular Insulin units *Depending on acid-base status Famotidine mg Multivitamins 1 std dose Insulin Regimen Trace Elements 1 std dose none Thiamine mg Regular Low Intensity Subcut Folic Acid mg Regular Medium Intensity Subcut Ascorbic Acid mg Regular High Intensity Subcut Regular Insulin Infusion Other: Chrissy Chan [facility] Sep 01, 2016 10:48
--- NOTE | 2016-09-01 12:49 | NUR ---
Off Unit Patient off floor to PACU via bed. TPN and NS SL.
[2016-09-01] MEDS ORDERED: Bupivacaine-MPF 0.25%/EPI 30 mL Inj INJ ONE (13:30)
[2016-09-01] MEDS ORDERED: Lactated Ringer's 1,000 ML IV ONE ×2 (13:32→15:00)
[2016-09-01] MEDS ORDERED: metroNIDAZOLE 500 mg/100 mL NS Premix IV ONE (14:16)
[2016-09-01] MEDS ORDERED: Lactated Ringer's 1,000 ML IV SCH (14:24)
[2016-09-01] MEDS ORDERED: Lactated Ringer's 500 ML IV PRN (14:24)
[2016-09-01] MEDS ORDERED: Atropine 0.4 mg/mL Inj IVPUSH PRN (14:25)
[2016-09-01] MEDS ORDERED: MetoCLOpramide 5 mg/mL 2 mL Inj IVPUSH PRN (14:25)
[2016-09-01] MEDS ORDERED: Phenylephrine 10,000 mCg/mL Inj IVPUSH PRN (14:25)
[2016-09-01] MEDS ORDERED: EPHEDrine Sulfate 50 mg/mL Inj IVPUSH PRN (14:25)
[2016-09-01] MEDS ORDERED: Ondansetron 2 mg/mL 2 mL Inj IVPUSH PRN ×2 (14:25→20:30)
[2016-09-01] MEDS ORDERED: Bupivacaine Liposome 1.3% 20 mL Inj ONE (14:56)
[2016-09-01] MEDS ORDERED: Bupivacaine Liposome 1.3% 20 mL Inj INFILTRATE ONE (14:59)
--- NOTE | 2016-09-01 15:04 | NUR ---
Social Work-continued d/c planning: Data:EMR reviewed. Pt is on day 6 of hospitalization for bowel obstruction per H&P. Pt is not medically stable for discharge at this time. Pt is at the OR today. SW to follow up post surgery for any discharge needs. SW will continue to follow. Assessment:Pt who is independent at baseline. Plan:Pt to discharge home when medically stable. SW to follow up post surgery for discharge needs. SW will continue to follow. GENE Knox
--- NOTE | 2016-09-01 15:28 | PCM.HPANE ---
Patient Data Surgeon Admitting Provider:Booker Villar MD Attending Provider:Will Marcelino MD Primary Care Physician:Ellis Holt MD Other Provider:Terri Luu Anesthesia Reason for Visit Bowel Obstruction,Sigmoid Mass BOWEL OBSTRUCTION,SIGMOID MASS Ht/WT & BMI Height (Feet): 5 Height (Inches): 5.00 Weight (Kilograms): 97.700 Body Mass Index 35.00 Allergies Coded Allergies: Penicillins (Verified Allergy, Severe, Anaphylaxis, 08/26/16) codeine (Verified Allergy, Intermediate, Rash, 08/26/16) Past Anesthesia History Anesthesia History: Denies:: Anesthesia Reactions Diabetes History Hx Diabetes?: Yes Current Bedside Blood Glucose: 140 MRSA MRSA: No Medications Reported Medications Multivitamin (Once Daily)1 Each Tablet1 Each PO DAILY 08/26/16 Gluc 2Kcl/Chondr/Kulwant Hy/Hy AC (Glucosamine & Chondroitin Cap)1 Each Capsule1 Each PO DAILY 08/26/16 [occufix 20/20] No Conflict Check1 Capsule PO DAILY 08/26/16 Trazodone 50 Mg Jrciae48 Mg PO HS Ref 0 08/26/16 [inderjit soothe] No Conflict Check1 Capsule PO DAILY 08/26/16 Aspirin 81 Mg Hkdzhw05 Mg PO HS Ref 0 08/26/16 Hydrochlorothiazide 25 Mg Njksbe05 Mg PO DAILY 30 Days Ref 0 08/26/16 Temazepam 15 Mg Hauuaxr35 Mg PO HS 30 Days Ref 0 09/24/14 Melatonin/Pyridoxine (Melatonin 3 mg Tablet)1 Each Tablet1 Each PO HS 09/24/14 Cholecalciferol (Vitamin D3) (Vitamin D3)2,000 Unit Capsule4,000 Unit PO DAILY 09/24/14 Atenolol 50 Mg Syhgef12 Mg PO DAILY #30 TABLET Ref 0 09/24/14 Losartan Potassium 25 Mg Vzyjys26 Mg PO DAILY 09/24/14 Levothyroxine 75 Mcg Hpalts79 Mcg PO DAILY 30 Days Ref 0 01/17/14 Discontinued Reported Medications Hydrocodone/Acetaminophen (Vicodin 5-300 mg Tablet)1 Each Tablet1 Each PO Q4 PRN For Pain Ref 0 09/24/14 Aspirin (Aspir 81)81 Mg Tablet.dr81 Mg PO DAILY Ref 0 09/24/14 [Calanus Oil] No Conflict Boknh984 Mg PO DAILY 09/24/14 Sennosides (Senna)8.6 Mg Txmrtvu23.2 Mg PO BID PRN For Constipation 01/16/14 Polyethylene Glycol 3350 (Miralax)17 Gm Powd.pack17 Gm PO DAILY PRN For Constipation 01/16/14 Dicyclomine (Bentyl)20 Mg Lvnmkq08 Mg PO DAILY PRN CRAMPING 01/16/14 Discontinued Scripts Docusate Sodium (Colace)100 Mg Brwppxs621 Mg PO BID CONSTIPATION #30 CAPSULE Ref 0 Prov:Dale Bailey DO 11/06/15 Metronidazole (Flagyl)500 Mg Eivzmv754 Mg PO TID #30 Prov:Inez Brooke MD 09/28/14 Levofloxacin (Levaquin)750 Mg Pmhhaa438 Mg PO DAILY #10 Prov:Inez Brooke MD 09/28/14 History History of ENT Problems?: Yes HEENT History: Positive for:: Sinus Problem Denies:: Cataracts Dysphagia Hx of Heart Problems?: Yes Cardiovascular History: Positive for:: Edema Hypertension Irregular Heartbeat (no diagnosis of a-fib) Denies:: Cardiac Surgery Chest Pain Congestive Heart Failure Heart Murmur Pacemaker Thrombophlebitis Hx of Respiratory Problem?: No Respiratory History: Denies:: Asthma COPD Chest Surgery Dyspnea Emphysema Hemoptysis Pneumonia Tuberculosis Hx Neurologic Problems?: Yes Neurological History: Positive for:: Dizziness Denies:: Alzheimer's Disease CVA Dementia Headaches Parkinson's Disease Seizures Hx of GI Problems?: Yes Gastrointestinal History: Positive for:: Diverticulitis Gastroesphageal Reflux Heartburn Denies:: Gastrointestinal Bleeding Hepatitis Hiatal Hernia Rectal Bleeding Other GI Pertinent History: Admitted for partial small bowel obstruction September 2014. September 2014:Suggestive sigmoid colon malignancy, pt decline any evaluation or work up since then per H&P Hx of Problems?: Yes Genitourinary History: Positive for:: Kidney Stones (AT AGE 16) Urinary Tract Infection Denies:: HX of Hemodialysis HX of Peritoneal Dialysis: No Female Hx: Denies:: Currently Endometriosis Pelvic Inflammatory Problems with Breasts? Hx Musculoskeletal Problems?: Yes Musculoskeletal History: Positive for:: Back Injury (COMPRESSION FX L2) Denies:: Joint Replacement Musculoskeletal Trauma Hx of Psycho/Social Problems?: Yes Psycho Social History: Positive for:: Hx Depression Suicide Attempt (College) Denies:: Anxiety Bipolar Disorder Hx Surgeries?: Yes (R ROTATER CUFF REPAIR-2008, APPY- AT AGE 9, FAILD ATTTEMPT COLONOSCOPY ) Hx Any Other Health Problems?: Yes Other History: Positive for:: Cancer (Suggestive sigmoid colon malignancy ( see GI)) Hospitalization (SBO) Thyroid Disease (HYPOTHYROIDISM) Denies:: Endocrine Disease History Blood Transfusions: Denies:: Blood Transfusions Hx Diabetes: YesBedside Blood Glucose: 140 Hx Alcohol Use: NoHx Substance Use: No Smoking Status: Never Smoker Have You Smoked inLast 12 mo: No Stop/Bang Treated for Sleep Apnea?: No Do You Have a CPAP Machine?: No S-Snoring: Do You Snore Loudly: No T-Tired: feel tired, fatigued: No O-Obsered: Observed not breath: No P-Blood Pressure: treated: Yes B- Body Mass Index > 35 kg/m2: Yes A- Age over 50: Yes N- Neck Large Circumference: No G- Gender Male: No MEJIA Total Score: 3 MEJIA Category 2: Yes Risk Assessment Category Category 1A: Patient has history of documented sleep apnea, and HAS NOT received any narcotic, sedative or anesthesia administration during this stay. Category 1B: Patient has history of documented sleep apnea, and HAS received any narcotic , sedative or anesthesia administration during this stay Category 2: Patient has SUSPECTED Obstructive Sleep Apnea, and HAS received any narcotic , sedative or anesthesia administration during this stay. Category 3: Patient has SUSPECTED Obstructive Sleep Apnea and HAS NOT received narcotic, sedative or anesthesia administration during this stay. Category 4: Outpatient in Procedural Areas with known sleep apnea or who screen positive for High Risk via the STOP/BANG questionnaire. Exam Exam Vital Signs Vital Signs Date Time Temp Pulse Resp B/P Pulse Ox O2 Delivery O2 Flow Rate FiO2 09/01/16 10:56 36.4 77 18 143/87 97 Room Air 09/01/16 07:21 36.9 75 18 130/80 97 Room Air General Appearance: Alert, Oriented X3, Cooperative, No Acute Distress HEENT/AIRWAY: MP 2, Neck Movement (FROM despite h/o neck pain, large neck circumference), Mouth Opening (3 FBMO) Lungs: Clear to Auscultation, Normal Air Movement Heart: Exam Unremarkable, Regular Rate/Rhythm, No Murmurs/Rubs/Gallops Meds/Labs/Diagnostics Admission Meds Current Medications Neomycin Sulfate (Neomycin Sulfate) 2,000 mg ONCE ONCE PO Last administered on 09/01/16 00:42; Start 08/31/16 at 23:00; Stop 08/31/16 at 23:01; Status DC Metronidazole HCl (Flagyl) 2,000 mg ONCE ONCE PO Last administered on 19:04; Start 08/31/16 at 19:00; Stop 08/31/16 at 19:01; Status DC Metronidazole HCl (Flagyl) 2,000 mg ONCE ONCE PO Last administered on 00:42; Start 08/31/16 at 23:00; Stop 08/31/16 at 23:01; Status DC Bedside Blood Glucose: 140 Labs Test 08/26/16 16:20 08/26/16 19:43 08/27/16 05:45 08/30/16 05:35 Activated Partial Thromboplast Time 28.0sec (22.8-33.0) Hemoglobin A1c 7.9% (4.8-5.6) Lactic Acid Level 1.4mmol/L (0.4-2.0) Lipase 16U/L (13-60) Carcinoembryonic Antigen 2.9ng/mL (0.0-4.7) Procalcitonin 0.12ng/mL (0.00-0.08) Urine Color Yellow (YELLOW) Urine Appearance Hazy (CLEAR,HAZY) Urine pH 7.0 (5.0-8.0) Urine Specific [place] <1.005 (1.003-1.035) Urine Protein Negativemg/dL (NEG,TRACE) Urine Glucose (UA) Negativemg/dL (NEGATIVE) Urine Ketones 15mg/dL (NEGATIVE) Urine Occult Blood Large (NEGATIVE) Urine Nitrite Negative (NEGATIVE) Urine Bilirubin Negative (NEGATIVE) Urine Urobilinogen Normalmg/dL (NORMAL) Urine Leukocyte Esterase Negative (NEGATIVE) Urine RBC 11-50/hpf (0-2) Urine WBC 0-5/hpf (0-5) Urine Epithelial Cells Moderate/hpf (NONE-MOD) Urine Crystals None seen (NONE SEEN) Urine Bacteria None/hpf (NONE-FEW) Urine Hyaline Casts None/lpf (NONE) Urine Granular Casts None seen (NONE SEEN) Urine Waxy Casts None seen (NONE SEEN) Urine Red Blood Cell Casts None seen (NONE SEEN) Urine White Blood Cell Casts None seen (NONE SEEN) Urine Mucus None seen (None Seen) Urine Trichomonas None seen (NONE SEEN) Urine Yeast None (NONE SEEN) Urinalysis Comment None Urine Culture Reflexed Not indicated Neutrophils (%) (Auto) 60.3% (40-74) Lymphocytes (%) (Auto) 26.0% (14-46) Monocytes (%) (Auto) 11.6% (4-12) Eosinophils (%) (Auto) 1.7% (0-5) Basophils (%) (Auto) 0.2% (0-3) Prothrombin Time 10.6sec (8.1-12.5) Prothromb Time International Ratio 0.99ratio White Blood Count 9.1th/mm3 (3.8-10.1) Red Blood Count 4.35mil/mm3 (3.90-5.20) Hemoglobin 14.8g/dL (12.0-15.6) Hematocrit 45.2% (35.0-46.0) Mean Corpuscular Volume 103.9fL (81-100) Mean Corpuscular Hemoglobin 34.0pg (27.0-35.0) Mean Corpuscular Hemoglobin Concent 32.7% (32.0-37.0) Red Cell Distribution Width 12.7% (12.3-15.4) Platelet Count 116bil/L (150-400) Total Bilirubin 1.0mg/dL (0.0-1.2) Aspartate Amino Transf (AST/SGOT) 34U/L (0-50) Alanine Aminotransferase (ALT/SGPT) 35U/L (0-32) Alkaline Phosphatase 77U/L (25-165) Total Protein 5.6g/dL (6.4-8.4) Albumin 3.3g/dL (3.4-5.0) Test 09/01/16 07:24 Sodium Level 142mEq/L (134-144) Potassium Level 4.0mEq/L (3.5-5.2) Chloride Level 105mEq/L (97-108) Carbon Dioxide Level 23mmol/L (18-29) Blood Urea Nitrogen 10mg/dL (8-27) Creatinine 0.41mg/dL (0.57-1.00) Estimat Glomerular Filtration Rate 212mL/min (>59) Glucose Level 180mg/dL (60-99) Calcium Level 9.1mg/dL (8.5-10.1) Phosphorus Level 1.7mg/dL (2.5-4.9) Magnesium Level 2.0mg/dL (1.6-2.6) Plan Impression Patient chart reviewed, patient interviewed and anesthestic plan with risks, benefits, and alternatives discussed, and informed consent obtained. NPO Status: > 8 hrs ASA Physical Status: ASA3 Severe Disease (Morbid obesity, bowel obstruction) Anesthetic Support Modalities: Bigfoot Scope, Arterial Line (Right radial arterial line with US guidance) Anesthetic Plan: GA Bene/Risks/Altern/Consents: Yes HP Complete Prior to Induction: Yes Breezy Peterson MD Sep 01, 2016 12:18
[2016-09-01] MEDS ORDERED: Dextrose 5% Lactated Ringer's 1,000 ML IV SCH (20:30)
[2016-09-01] MEDS: fentaNYL-PF 50 mCg/mL 2 mL Inj IVPUSH PRN ×2 (21:11→21:47)
[2016-09-01 21:37] LABS: BASOPHILS % (AUTO) 0.2 % (0-3); EOSINOPHILS % (AUTO) 0.2 % (0-5); MONOCYTES % (AUTO) 6.9 % (4-12); Mean Corpuscular Hemoglobin 33.7 pg (27.0-35.0); Mean Corpuscular Volume 106.1 fL (81-100); NEUTROPHILS % (AUTO) 86.1 % (40-74); Platelet Count 202 bil/L (150-400)
[2016-09-01] MEDS: Acetaminophen IV 1,000 MG in IV Premix 1 EACH IV SCH (22:38)
[2016-09-01] MEDS: Total Parenteral Nutrition 1 BAG IV SCH (23:04)
[2016-09-02] VITALS (7 sets, daily range): BP systolic 87–117; BP diastolic 58–79; PULSE 72–103; RESP 16–20; O2SAT 94–98
--- NOTE | 2016-09-02 00:59 | OP ---
[address] [address] OPERATIVE REPORT PATIENT: KWABENA CORDERO : 1935 MR#: [id number] ADMIT: 08/26/2016 JOB ID: [id number] DATE OF SURGERY: 09/01/2016 PREOPERATIVE DIAGNOSIS(ES): Apple-core lesion consistent with colorectal carcinoma. POSTOPERATIVE DIAGNOSIS(ES): Apple-core lesion consistent with colorectal carcinoma. OPERATION PERFORMED: 1. Cystoscopy. 2. Left ureteral stent placement. SURGEON: Candace Sloan MD. ANESTHESIOLOGIST: Breezy Peterson MD. ANESTHESIA: General. FINDINGS: Atrophic vaginitis. Bladder urothelium was mildly hyperemic. Orifices were normal position bilaterally. The left ureteral stent catheter was positioned satisfactorily without incident. The right was met with obstruction just proximal to the ureterovesical junction of some sort, although she has no hydronephrosis on CT scan. I surmised this might be somehow related to some anatomical changes postoperatively after known appendectomy. Attempt at passing a [place] PTFE wire was also attempted and also met with obstruction. No further attempts or retrograde pyelography were indicated at this point. A 4-Sudanese whistle-tip catheter was left in the left ureter. The bladder was partially drained. Then, the ureteral stent was brought through the female flange of a 16-Sudanese Lainez catheter and then the system was internalized and placed to gravity drainage. IMPRESSION: 1. Probable colorectal carcinoma. 2. Large left renal calculus. PLAN: 1. Ureteral catheter can be removed postoperatively if no other issues related to operative identification and isolation of the left ureter. 2. Request followup with me in my office 2-3 weeks post discharge with flat plate KUB.
--- NOTE | 2016-09-02 01:03 | CONS ---
[address] [address] CONSULTATION REPORT PATIENT: KWABENA CORDERO : 1935 MR#: [id number] ADMIT: 08/26/2016 JOB ID: [id number] DATE OF SERVICE: REQUESTING PHYSICIAN: Jessica Hyatt MD. REASON FOR CONSULTATION: Evaluate ureteral protection for anticipated colon resection for presumed diagnosis of colorectal carcinoma. HISTORY OF PRESENT ILLNESS: The patient is a delightful 81-year-old woman who was admitted on August 26, 2016, for further evaluation and management of abdominal pain, nausea and vomiting of 24 hours duration. She also had not had normal bowel movements for the prior several weeks with pencil-like stools and pellet-like rocks. Further evaluation led to abdominal and pelvic CT with contrast on the same day with findings of a classic apple-core lesion within the sigmoid colon most consistent with colorectal carcinoma. Also noted was an 8 x12 mm left renal pelvic calculus. Allergies, past medical history, surgical, social, family and review of systems have been reviewed in admission notes and consultations by Dr. Gil Funez and Dr. Lauren Nguyen, and I agree without alteration, addition or subtraction. PHYSICAL EXAMINATION: She is resting comfortably in bed. No acute distress. Head and neck exam: Remarkable only for prescription eyewear. Sclerae clear. Neck: No JVD or adenopathy. Chest: Equal, clear and unlabored bilaterally. Heart rate is regular. Abdomen is moderately obese, protuberant, soft. No localizing tenderness. Extremities: No pallor, edema or cyanosis. IMPRESSION: 1. Probable colorectal carcinoma with anticipated laparoscopic sigmoid colectomy by Dr. Jessica Hyatt. 2. An 8 x 12 mm left renal pelvic calculus. PLAN: 1. Discussion, informed consent and scheduling obtained for cystoscopy and bilateral retrograde catheter or stent placement. 2. Request followup in my office 2-3 weeks post discharge with flat plate KUB of the abdomen.
[2016-09-02] MEDS: 0.9% Sodium Chloride 1,000 ML IV SCH (01:40)
[2016-09-02] MEDS: MetoCLOpramide 5 mg/mL 2 mL Inj IVPUSH PRN ×2 (01:45→02:03)
[2016-09-02] MEDS: Insulin Human REGular Inj 100 UNIT in 0.9% Sodium Chloride-Pha MIX 100 ML IV SCH ×2 (01:55→20:48)
--- NOTE | 2016-09-02 02:03 | OP ---
[address] [address] OPERATIVE REPORT PATIENT: KWABENA CORDERO : 1935 MR#: [id number] ADMIT: 08/26/2016 JOB ID: [id number] DATE OF SURGERY: 09/01/2016 PREOPERATIVE DIAGNOSIS(ES): Sigmoid diverticular stricture. POSTOPERATIVE DIAGNOSIS(ES): Sigmoid diverticular stricture. PROCEDURE PERFORMED: 1. Laparoscopic hand-assisted sigmoid colectomy with end colostomy. 2. Laparoscopic takedown of splenic flexure. 3. Rectus sheath blocks with liposomal bupivacaine. SURGEON: Jessica Hyatt MD NUTRITION SERVICES AIDE: Vicente Barton MD, Ad Gomez MS3, Manav Hermosillo PA-C. Surgical assistants were necessary for dissection, retraction, and intraoperative decision-making. HISTORY OF PRESENT ILLNESS: This is an 81-year-old woman who has had a stricture in the sigmoid colon for greater than five years. She has had more than five episodes of diverticulitis, and has been hospitalized at least twice for treatment. The stricture has caused intermittent obstructive symptoms and she has had a CT scan, nearly on an annual basis. Previously, she has refused colonoscopies. Recently, colonoscopy was attempted, but a full prep could not be performed and the stricture was deemed to be so narrow that she would soon obstruct again. Therefore, options were discussed with the patient, and she consented to surgery. We agreed preoperatively on a Carlos's procedure due to the patient's age, comorbidities, in order to avoid the risk of anastomotic leak, but also to remove the diseased segment of colon to prevent future episodes of diverticulitis. FINDINGS: 1. Severe diverticular inflammation with adherence of the sigmoid colon to the uterus and right ovary. 2. Carlos's procedure performed with 18 cm of sigmoid colon removed. DESCRIPTION OF PROCEDURE: The patient was brought to the operating room and placed in supine position. General anesthesia was induced. A warming blanket and SCDs were placed. Antibiotics were infused. A left ureteral stent was placed by Candace Sloan MD. Please see his separate dictation for details. The patient was in lithotomy position. A 10 mm vertical midline incision was made 3 cm above the umbilicus. An Optiview port was used for entrance into the peritoneal cavity. The abdomen was insufflated. Four additional 5 mm ports were placed in the right upper quadrant, right lower quadrant, inferior abdominal midline, and left lower quadrant. The right lower quadrant port ultimately was upsized to a 12 mm port later in the case for use of a stapling device. The superior vertical midline incision was upsized to 5 cm to accommodate the hand port which was used for the portion of the dissection involving the inflamed sigmoid colon. The abdomen was explored and a lateral to medial approach was chosen. The white line of Toldt was taken down. Laparoscopic mobilization of the splenic flexure was performed. The omentum was taken down from off of the distal transverse colon for further mobilization. The ureter was identified on the left and was preserved throughout the case. The sigmoid colon was mobilized. The sigmoid was found to be densely adhered to the uterus and right ovary. It took prolonged dissection to safely dissect it off of these structures. Ultimately, the inflamed portion of sigmoid colon was dissected off and the superior rectum was identified by splitting out of the tenia. Once this dissection was complete, a proximal transection point was chosen above the diseased segment of colon. The transection site was isolated and the colon was divided with two firings of the 45 mm Endo-COLLEEN stapler with a blue load. The specimen was then taken down using a LigaSure device on the mesentery. The mesentery was divided somewhat close to the colon given that malignancy was not suspected in this patient. The mesentery was extremely thickened and obviously inflamed. Once the entire mesentery had been dissected, a distal transection point was chosen below the peritoneal reflection. This was transected with two firings of the blue load Endo-COLLEEN stapler. The rectal stump was marked with a 2-0 Prolene stitch left approximately 10 cm in length. The remainder of the specimen was divided with the LigaSure device. Ultimately, the specimen was removed from the hand port site. Once the specimen was removed, hemostasis was confirmed in the pelvis. An ostomy site was chosen in the left upper quadrant because of the patient's obesity and, although she has adequate eye sight, it is mildly compromised, so a higher ostomy site would be easier for her to see and to manage. The colon was brought out through the ostomy site which was made through a cruciate incision in the fascia. It was held in place with a [place]. The 12 mm right lower quadrant port site was then closed with a laparoscopic fascial closure device using an 0 PDS stitch. The 5 mm ports were removed. The fascia at the hand port site in the mid abdomen was closed with running 2-0 PDS stitches tied in the middle. Rectus sheath blocks were performed with 20 mL of liposomal bupivacaine. The skin at all port sites was closed with 4-0 Monocryl. Dermabond was applied. Once the Dermabond was dry, a 1000 drape was used to protect the incisions. The colon was opened at the colostomy site. Nine interrupted 3-0 Vicryl stitches were used and the colostomy was matured in [place] fashion. An ostomy device was placed. The patient was awakened from general anesthesia and taken to the postoperative care unit in good condition. She tolerated the procedure well. SPECIMENS: Sigmoid colon, 18 cm in length. The specimen was opened on the back table, and there was no sign of malignancy. There was severe mesenteric inflammation causing the stricture. None of my fingers could pass through the stricture when the specimen was examined on the back table. ESTIMATED BLOOD LOSS: 100 mL. COMPLICATIONS: None. A Modifier 22 is requested for this case as the severe inflammation from diverticulitis caused a very prolonged dissection and the procedure therefore took >50% longer than the usual amount of time. LEOLA
[2016-09-02] MEDS: Heparin 5,000 Unit/mL Inj SUBQ SCH ×3 (02:10→16:57)
[2016-09-02] MEDS: HYDROmorphone 0.5 mg/0.5 mL iSecure Syringe IVPUSH PRN (02:14)
[2016-09-02] MEDS: Acetaminophen IV 1,000 MG in IV Premix 1 EACH IV SCH ×4 (04:55→20:48)
--- NOTE | 2016-09-02 05:26 | NUR ---
Return POSTOP to [facility] rm 1011 at 2230 5x trochar sites with glue, beefy red stoma and clean empty colostomy bag. Pt on Tele. Lainez draining to gravity. Clear liquid today and full liquid continued 09/02. D5LR changed to NS at 30ml/h for insulin gtt per Dr Hyatt. TPN infusing at 63 ml/h. Given one dose of dilauded, IV APAP, and roxicodone for pain. Pt reports nausea with no emesis, given reglan. Daughter shavonne in room this noc, daughter Cyn aware. Pt remains AOx1, intermittently wakes up to state pain. Care Continues
[2016-09-02 06:00] LABS: BASOPHILS % (AUTO) 0.1 % (0-3); EOSINOPHILS % (AUTO) 0.4 % (0-5); MONOCYTES % (AUTO) 7.3 % (4-12); Mean Corpuscular Hemoglobin 33.9 pg (27.0-35.0); Mean Corpuscular Volume 106.6 fL (81-100); Platelet Count 210 bil/L (150-400)
[2016-09-02 06:18] LABS: Phosphorus 2.6 mg/dL (2.5-4.9)
--- NOTE | 2016-09-02 07:45 | PCM.PNSURG ---
Subjective Visit Information: Reason for Visit Bowel Obstruction,Sigmoid Mass Surgery/Surgery Date sigmoid colectomy 09/01/16 Post-Op Day # Date of Admission: Aug 26, 2016 at 20:42 Hospital Day # Subjective: Stable overnight. Blood sugars 200s-305, insulin gtt started, down to 185 now. WBC 17-->15, Hct 40. No complaints. Objective Vital Sign- Last 8 Hours Date Time Temp Pulse Resp B/P Pulse Ox O2 Delivery O2 Flow Rate FiO2 09/02/16 05:34 36.9 84 18 110/68 97 Nasal Cannula 3.00 09/02/16 02:55 36.8 88 18 113/67 96 Nasal Cannula 3.00 Intake and Output- Last 8 Hour 09/02/16 Cumulative From/Thru 06:59 08/26/16 14:40 - 09/02/16 06:27 Intake Total 453 ml 47103 ml Output Total 500 ml 84174 ml Balance -47 ml 4627 ml Intake Oral 0 ml 6072 ml IV Total 221 ml 02654 ml TPN/PPN 232 ml 1528 ml Output Urine Total 500 ml 53196 ml Stool Total 0 ml 125 ml Gastric Drainage Total 220 ml Emesis 150 ml Estimated Blood Loss 100 ml # Voids 9 # Bowel Movements 17 General: Oriented X3, Cooperative, No Acute Distress Abdomen: Soft, Appropriately tender, Ostomy pink & viable Result Diagram: 09/02/16 0500 09/02/16 0540 Assessment & Plan Impression POD1 lap sigmoid colectomy for diverticular stricture Problems: Plan Oral analgesia CLD -->FLD ro out when ambulatory or tomorrow as she arrived on floor very late last night Must ambulate Insulin gtt AROBF Resuscitation Status: DNR/DNI:Do Not Resuscitate/Intubate Jessica Hyatt MD Sep 02, 2016 07:45
[2016-09-02] MEDS: TPN Per Pharmacist XX SCH (08:30)
--- NOTE | 2016-09-02 09:20 | PCM.PNMED ---
Subjective Date of Service Sep 02, 2016 Subjective "i've felt better", noted patient this morning, but she does state perhaps feeling a little better than yesterday at least. No significant appetite yet, but denies nausea/vomiting currently. Abdominal pain is at least tolerable. NO other acute complaints at this time. Tried to eat a small amount of Jell-O, but only had a few bites. Exam Vital Signs Vital Sign - Last Date Time Temp Pulse Resp B/P Pulse Ox O2 Delivery O2 Flow Rate FiO2 09/02/16 08:31 72 20 95 Room Air 09/02/16 05:34 36.9 110/68 3.00 Intake and Output 09/01/16 09/01/16 09/02/16 Cumulative From/Thru 15:00 23:00 07:00 08/26/16 14:40 - 09/02/16 06:27 Intake Total 3175 ml 1200 ml 453 ml 93872 ml Output Total 1450 ml 580 ml 500 ml 33100 ml Balance 1725 ml 620 ml -47 ml 4627 ml Intake Oral 200 ml 200 ml 0 ml 6072 ml IV Total 2221 ml 1000 ml 221 ml 67334 ml TPN/PPN 754 ml 232 ml 1528 ml Output Urine Total 1350 ml 580 ml 500 ml 86469 ml Stool Total 0 ml 125 ml Gastric Drainage Total 220 ml Emesis 150 ml Estimated Blood Loss 100 ml 100 ml # Voids 9 # Bowel Movements 4 3 17 General: Alert, Oriented X3, Cooperative, Moderate Distress Mouth: Mucous Membr Moist/[place] Chest & Lungs: Chest Wall Normal Cardiovascular: Regular Rate/Rhythm Abdomen: Tender, Non-distended, Other (INsiciional sites well healing, no evidence of infection. Ostomy clean, dry bag/dressing and well perfused. ) IVs and Medications Medications Reviewed: Medications were reviewed in detail Lab and Diagnostics Result Diagram: 09/02/16 0500 09/02/16 0540 X-Rays, CTs and MRIs PROCEDURE: CT ABDOMEN AND PELVIS WITH CONTRAST IMPRESSION: 1. Apple core lesion within the sigmoid colon most consistent with colorectal cancer with resultant partial obstruction as described above. Fat stranding and trace fluid suggest microperforation. No pat pneumoperitoneum. This finding was discussed with Dr. Meraz at 6:13 PM on 08/26/16. 2. Cholelithiasis. Dictated by: Zahra Jones M.D. on 08/26/2016 at 18:02 Approved by: Zahra Jones M.D. 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 1.- Acute large bowel obstruction, present on admission -Possibly benign diverticular stricture -failed colonoscopy [address] Barton -history of colon obstruction as seen on abdominal imaging since 2013. -08/26/2016 Apple Core lesion seen on CT abdomen and pelvis with stool compaction proximal to stricture. -appreciate surgery and GI consults. -continue with supportive care including IV morphine and antiemetics as needed -Now S/P Laparoscopy sigmoidectomy on 09/01/2016) - Symptoms improved , Advancing diet as tolerated. 2.- Acute leukocytosis, present on admission, recurrent, but again downward trending (17 --> 15 today) 3. Hyperglycemia in a known type 2 diabetic, present on admission -improved -continue low-dose correctional scale insulin -HgA1C 7.9 4. Hypertension, chronic, present on admission -Atenolol 50 mg daily snd Losartan 25 mg daily 5. Hypothyroidism, present on admission, chronic, active -Levothyroxine 75 g daily 6. Insomnia -Temazepam 15 mg by mouth. Before bedtime -Melatonin 3 mg before bedtime 7. Transaminitis chronic, present on admission: mild and improved 8. Hypokalemia : Replace potassium PRN Hemodynamically and clinically stable. Considering DC home vs SNF based on recovery. Pain Evaluation: Adequate Pain Control VTE Mechanical Devices: Intermittant Pneumatic CD Resuscitation Status: DNR/DNI:Do Not Resuscitate/Intubate Time spent 25 minutes Tariq Petersen DO Sep 02, 2016 09:20
--- NOTE | 2016-09-02 10:27 | PCM.PHAPRO ---
Progress Date of Service: Sep 02, 2016 TPN MANAGEMENT A/ TPN CONTINUING DUE TO LARGE BOWEL OBSTRUCTION S/P SURGERY 09/01 ADVANCED DEXTROSE, AMINO ACIDS AND LIPIDS PER NUTRITION RECOMMENDATIONS ADDED FAMOTIDINE 40MG TO TPN FOR GI PROPHYLAXIS ADJUSTED ELECTROLYTES PER CURRENT LABS. PARENTERAL NUTRITION ORDERS 02-Sep-16 Standard Hang Time: 2100 Substrates Total kcal: 1485 AMINO ACIDS 80 g DEXTROSE 225 g Total Volume (mL): 1750 LIPIDS 40 g Sterile Water for Injection QS mL To Infuse Over (hrs): 24 Total Volume 1750 mL At at a rate of (mL/hr): 73 Additives Sodium Chloride 70 mEq "typical" daily requirements Sodium Acetate 30 mEq Sodium 50-120mEq Potassium Chloride 50 mEq Potassium 60-120mEq Potassium Phosphate 20 mEq Phosphate 20-40mEq Calcium Gluconate 12 mEq Magnesium 8-32mEq Magnesium Sulfate 8 mEq Calcium 9-22mEq Acetate* 80-120mEq Chloride* 80-120mEq Regular Insulin units *Depending on acid-base status Famotidine 40 mg Multivitamins 1 std dose Insulin Regimen Trace Elements 1 std dose none Thiamine mg Regular Low Intensity Subcut Folic Acid mg Regular Medium Intensity Subcut Ascorbic Acid mg Regular High Intensity Subcut Regular Insulin Infusion Other: THANK YOU FOR THE CONSULT rBad Stacy [facility] Sep 02, 2016 10:27
--- NOTE | 2016-09-02 10:45 | PCM.ANEP1 ---
Post Anesthesia Phase 1 PACU Phase 1 Assessment Date of Service: Sep 02, 2016 Vital Signs Vital Signs Date Time Temp Pulse Resp B/P Pulse Ox O2 Delivery O2 Flow Rate FiO2 09/02/16 10:10 36.7 89 16 99/66 96 Nasal Cannula 1.00 09/02/16 08:31 72 20 95 Room Air 09/02/16 05:34 36.9 84 18 110/68 97 Nasal Cannula 3.00 09/02/16 02:55 36.8 88 18 113/67 96 Nasal Cannula 3.00 Anesthetic Administered: GA Level of Alertness: Awake, talking LEE's with Equal Strength: Yes Pain: Yes (not graded) Pain Scale Score: 3 Nausea or Vomiting: No Cardiovascular Function and Hy: No Oxygen Delivery: Simple Mask Lungs: Clear to Auscultation, Normal Air Movement Dermatome Level: Full Sensation Complications: No Follow up Care: No Breezy Peterson MD Sep 02, 2016 10:45
[2016-09-02] MEDS: Polyethylene Glycol (PEG) 17 Gm Powder PO SCH (12:00)
--- NOTE | 2016-09-02 13:26 | NUR ---
Evaluation completed. Please go to "Notes" then click on "Assessments and Notes" (bottom left corner of screen). Then select appropriate discipline tab on top of screen.
--- NOTE | 2016-09-02 13:30 | NUR ---
Low BP FYI page sent to MD regarding low BPs. 10AM 99/66. 1330 87/58. Encouraging PO intake of fluids. Denies dizziness or lightheaded. Care continues.
--- NOTE | 2016-09-02 14:29 | NUR ---
Social Work: Continued Discharge Planning Data & Assessment: EMR reviewed. Patient admitted for Bowel Obstruction and sigmoid mass per H&P. Pt is on day 7 of hospitalization and patient is not medically stable for discharge. PT saw Pt today and they are recommendning SNF. SW discussed SNF with patient, SNF choice list provided and patient agreed to go to [facility] at discharge. SW provided access and faxed faced sheet to [facility]. SW left message with ginny Addison to discuss discharge planning. SW will continue to follow. Plan: Referral made to [facility] . DANIELA will continue to follow. GENE Redd Addendum: 09/02/16 at 1621 by KHANG FIELD SW received call back from daughter Cyn. She is in agreement with discharge plan for [facility]. SW answered all questions. DANIELA explained [facility] has accepted pt at discharge. GENE Knox
--- NOTE | 2016-09-02 15:36 | NUR ---
[facility]ay[facility] Castro can accept with Dr. De Jesus to follow. GENE Knox
--- NOTE | 2016-09-02 15:36 | NUR ---
SNF choice list provided. GENE Knox
--- NOTE | 2016-09-02 18:36 | NUR ---
Colostomy / BS insulin drips No output noted in colostomy. Ostomy dark pink moist. BS insulin drip continues according to sliding scale. See intervention.
[2016-09-02] MEDS: Total Parenteral Nutrition 1 BAG IV SCH (21:00)
[2016-09-03 00:18] VITALS: BP 121/74; PULSE 102; RESP 20; O2SAT 94
[2016-09-03] MEDS: 0.9% Sodium Chloride 1,000 ML IV SCH (01:15)
[2016-09-03] MEDS: Heparin 5,000 Unit/mL Inj SUBQ SCH ×3 (02:07→16:15)
[2016-09-03] MEDS: Acetaminophen IV 1,000 MG in IV Premix 1 EACH IV SCH ×3 (02:07→16:15)
[2016-09-03 04:45] VITALS: BP 100/66; PULSE 99; RESP 16; O2SAT 93
[2016-09-03 05:30] LABS: BASOPHILS % (AUTO) 0.3 % (0-3); EOSINOPHILS % (AUTO) 3.2 % (0-5); MONOCYTES % (AUTO) 11.2 % (4-12); Mean Corpuscular Hemoglobin 35.4 pg (27.0-35.0); Mean Corpuscular Volume 115.8 fL (81-100); NEUTROPHILS % (AUTO) 70.6 % (40-74); Platelet Count 157 bil/L (150-400)
--- NOTE | 2016-09-03 07:26 | NUR ---
Insulin drip/colostomy Insulin drip infusing per orders. BS out of range x2 and required adjustment but dropped back in to range and maintained. Colostomy has 0 output, stoma is red and Pt is accepting
[2016-09-03 07:44] LABS: Magnesium 1.8 mg/dL (1.6-2.6); Phosphorus 2.2 mg/dL (2.5-4.9)
--- NOTE | 2016-09-03 07:52 | PCM.PNMED ---
Subjective Date of Service Sep 03, 2016 Subjective Pt notes abdominal pain/discomfort is improved. She slept well last night. Appetite is still not present, has yet to try breakfast this morning. Ostomy not putting out fluid/stool or gas that she can tell. No difficulties breathing/ chest pains. Denies any other complaints at this time. Exam Vital Signs Vital Sign - Last Date Time Temp Pulse Resp B/P Pulse Ox O2 Delivery O2 Flow Rate FiO2 09/03/16 04:45 37.2 99 16 100/66 93 Room Air 09/02/16 10:10 1.00 Intake and Output 09/02/16 09/02/16 09/03/16 Cumulative From/Thru 15:00 23:00 07:00 08/26/16 14:40 - 09/03/16 05:11 Intake Total 1573 ml 51614 ml Output Total 675 ml 98693 ml Balance 898 ml 5525 ml Intake Oral 238 ml 6310 ml IV Total 557 ml 43641 ml TPN/PPN 778 ml 2306 ml Output Urine Total 675 ml 69717 ml Stool Total 125 ml Gastric Drainage Total 220 ml Emesis 150 ml Estimated Blood Loss 100 ml # Voids 9 # Bowel Movements 17 Exam General: Alert, Oriented X3, Cooperative, Moderate Distress Mouth: Mucous Membranes Moist/[place] Chest & Lungs: Chest Wall Normal Cardiovascular: Regular Rate/Rhythm Abdomen: Tender, Non-distended, Incisional sites well healing, no evidence of infection. Ostomy clean, scant amount of red serous fluid in bag. IVs and Medications Medications Reviewed: Medications were reviewed in detail Lab and Diagnostics Result Diagram: 09/03/16 0500 09/03/16 0617 X-Rays, CTs and MRIs PROCEDURE: CT ABDOMEN AND PELVIS WITH CONTRAST IMPRESSION: 1. Apple core lesion within the sigmoid colon most consistent with colorectal cancer with resultant partial obstruction as described above. Fat stranding and trace fluid suggest microperforation. No pat pneumoperitoneum. This finding was discussed with Dr. Meraz at 6:13 PM on 08/26/16. 2. Cholelithiasis. Dictated by: Zahra Jones M.D. on 08/26/2016 at 18:02 Approved by: Zahra Jones M.D. 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 1- Acute large bowel obstruction, present on admission - Possibly benign diverticular stricture - Failed colonoscopy [address] Barton - History of colon obstruction as seen on abdominal imaging since 2013. - 08/26/2016 Apple Core lesion seen on CT abdomen and pelvis with stool compaction proximal to stricture. - Appreciating surgery and GI consults. - Continue with supportive care including IV morphine and antiemetics as needed - Now S/P Laparoscopy sigmoidectomy on 09/01/2016), POD #2 - Symptoms improved , Advancing diet as tolerated. 2.- Acute leukocytosis, present on admission, recurrent, but again downward trending (17 --> 15 --> 11 today) 3. Hyperglycemia in a known type 2 diabetic, present on admission -Improved, minimal PO intake of food , on insulin drip per surgical order -continue low-dose correctional scale insulin -HgA1C 7.9 4. Hypertension, chronic, present on admission -Atenolol 50 mg daily and Losartan 25 mg daily 5. Hypothyroidism, present on admission, chronic, active -Levothyroxine 75 g daily 6. Insomnia -Temazepam 15 mg by mouth. Before bedtime -Melatonin 3 mg before bedtime 7. Transaminitis chronic, present on admission: mild and still improving 8. Hypokalemia : Replace potassium PRN Hemodynamically and clinically stable. Considering DC home vs SNF based on recovery. Pain Evaluation: Adequate Pain Control VTE Mechanical Devices: Intermittant Pneumatic CD Resuscitation Status: DNR/DNI:Do Not Resuscitate/Intubate Time spent 25 minutes Tariq Petersen DO Sep 03, 2016 07:52
[2016-09-03] MEDS: TPN Per Pharmacist XX SCH (08:30)
--- NOTE | 2016-09-03 09:33 | PCM.PNSURG ---
Subjective Visit Information: Reason for Visit Bowel Obstruction,Sigmoid Mass Surgery/Surgery Date sigmoid colectomy 09/01/16 Post-Op Day # Date of Admission: Aug 26, 2016 at 20:42 Hospital Day # Subjective: Stable overnight. Tolerating small amounts of liquids. On FLD. PT and nursing tried to get pt to ambulate yesterday but had difficulty with pain/ presurgical debilitation and so she did not. BS 121-189 in the past 24h on insulin gtt. No air or stool in ostomy bag. Objective Vital Sign- Last 8 Hours Date Time Temp Pulse Resp B/P Pulse Ox O2 Delivery O2 Flow Rate FiO2 09/03/16 04:45 37.2 99 16 100/66 93 Room Air Intake and Output- Last 8 Hour 09/03/16 Cumulative From/Thru 07:00 08/26/16 14:40 - 09/03/16 05:11 Intake Total 90825 ml Output Total 88205 ml Balance 5525 ml Intake Oral 6310 ml IV Total 73584 ml TPN/PPN 2306 ml Output Urine Total 34295 ml Stool Total 125 ml Gastric Drainage Total 220 ml Emesis 150 ml Estimated Blood Loss 100 ml # Voids 9 # Bowel Movements 17 General: Cooperative, No Acute Distress Abdomen: Soft, Non-distended, Ostomy pink & viable Result Diagram: 09/03/16 0500 09/03/16 0617 Assessment & Plan Impression POD2 Lap sigmoid colectomy for diverticular stricture Problems: Plan Continue insulin gtt Await return of bowel function TPN until bowel function returns Ambulation today if possible d/c ro Resuscitation Status: DNR/DNI:Do Not Resuscitate/Intubate Jessica Hyatt MD Sep 03, 2016 09:33
--- NOTE | 2016-09-03 10:36 | NUR ---
NUTRITION FOLLOW UP: ASSESS: Pt is an 81 YO female admitted with bowel obstruction, TPN started 08/30 and advanced to ~75% of needs 09/02. Pt continues to have minimal output via ostomy and is only tolerating sips of FL diet. PMHX: DM, SBO, hypothyroid, diverticulitis, colon malignancy, htn. LABS: Reviewed. [facility] Paramedic 165, phos 2.2, alb 3.2 MEDS: Reviewed. Tums, insulin GI: 0 colostomy output SKIN: Clifford 14 No major issues. WT: 99kg, BMI 36.3 kg/m2, admit wt 95.9kg, IBW 56.8kg DIET: Full liquid. PO sips EST. NEEDS: BMI Kcals: 1965-2160kcal/day (20-22kcal/kg) Pro: 65-85g/day (1.2-1.5g/kg IBW) NUTRITION DIAGNOSIS: 1) Inadequate oral intake related to altered GI function as evidence by current CL diet order and previous need for bowel rest - PERSISTS. Pt on TPN. NUTRITION INTERVENTION: 1) Continue current TPN of 225g Dex, 80g AA and 40g lipids to provide 1405kcal and 80g pro (~75% kcal and 100% pro needs). Pharmacy is aware of recommendation 2) If pts GI function has not returned in next couple days and TPN continues to be tolerated, recommend advance to goal macronutrients of 285g Dex, 85g AA and 50g lipids to provide 1810kcal and 85g pro (~92% kcal and 100% pro needs). TPN only provides 92% kcal needs due to pt on FL diet and eating some food. 5) Once diet advanced, and pt. meeting approx. 50% of her nutrient needs orally, recommend taper TPN appropriately. MONITOR / EVAL: TPN tolerance/adjustment, PO, GI, diet advance, wt, labs, POC, nutrition status. Will continue to monitor per high nutrition risk guidelines Addendum: 09/04/16 at [address] Pt tolerated ~50% of FL diet on 09/03. Will keep current TPN macronutrients due to PO intake. Pharmacy is aware. Pt continue to have 0 BM. If pt continues to maryuri ~50% of FL meals, will consider decreasing TPN macronutrients. Will continue to monitor per high nutrition risk guidelines
--- NOTE | 2016-09-03 10:43 | NUR ---
Social Work-readiness for discharge: Data:EMR Reviewed. Pt is on day 8 of hospitalization for bowel obstruction per H&P. Pt is not medically stable anticipate 1-2 more days. PT has seen pt and recommended SNF placement. [facility] has accepted pt when medically stable. Pt and daughter updated and agreeable to plan. Paperwork and PASRR in the chart. SW will continue to follow. Assessment:Pt who would benefit from SNF. Plan:Pt to discharge to [facility] when medically stable. Paperwork and PASRR in the chart. SW will continue to follow. GENE Knox
--- NOTE | 2016-09-03 11:33 | PCM.PHAPRO ---
Progress Date of Service: Sep 03, 2016 WARFARIN MANAGEMENT A/ INR TRENDING DOWN AGAIN TODAY MOST LIKELY DUE TO 2UNITS PRBC YESTERDAY DUE TO BIOPROSTHETIC AORTIC/MITRAL VALVE AND CURRENT DVT WILL BEGIN BRIDGING WITH LOVENOX 80MG SUBQ DAILY (DOSED RENALLY) UNTIL INR>2 MD WOULD LIKE TO GIVE WARFARIN 6MG TONIGHT. MD INFORMED THAT PT HAD BEEN PREVIOUSLY SUPRATHERAPEUTIC WHEN RECEIVING 6MG PREVIOUSLY. P/ GIVE LOVENOX 80MG SUBQ NOW AND WILL GIVE WARFARIN 6MG AT [address] [facility] Sep 03, 2016 11:33
[2016-09-03] MEDS: Polyethylene Glycol (PEG) 17 Gm Powder PO SCH (12:00)
--- NOTE | 2016-09-03 12:16 | PCM.PHAPRO ---
Progress Date of Service: Sep 03, 2016 TPN MANAGEMENT A/ DAY 5 OF TPN S/P SIGMOIDECTOMY P/PER RECOMMENDATION FROM NUTRITION WILL CONTINUE AA 80GRAM, DEXTROSE 225GRAM, LIPIDS 40GRAM ELECTROLYTES CHANGED PER LABS * DECREASE KCL TO 20MEQ * KPHOS INCREASE TO 40MEQ * CALCIUM GLUC DECREASED TO 9MEQ PHARMACY WILL CONTINUE TO MONITOR AND ADJUST PARENTERAL NUTRITION ORDERS 5 03-Sep-16 Substrates AMINO ACIDS 80 g DEXTROSE 225 g LIPIDS 40 g Sterile Water for Injection QS mL Total Volume 1750 mL Additives Sodium Chloride 70 mEq Sodium Acetate 40 mEq Potassium Chloride 20 mEq Potassium Phosphate 40 mEq Calcium Gluconate 9 mEq Magnesium Sulfate 8 mEq Regular Insulin units Famotidine 40 mg Multivitamins 1 std dose Trace Elements 1 std dose Thiamine mg Folic Acid mg Ascorbic Acid mg Brad Stacy [facility] Sep 03, 2016 12:16
[2016-09-03 15:24] VITALS: BP 102/59; PULSE 101; RESP 18; O2SAT 95
--- NOTE | 2016-09-03 18:04 | NUR ---
Wound Care Patient seen at bedside in PM, information on ostomy and ostomy care had been left in AM. Worked in education at bedside on removal and application of wafer and bag system ([facility] #[id number] moldable flat). Stoma is ebenezer pink and proud, mucocutaneous border is intact, peristomal skin is healthy and without excoriation. Minimal (<5 cc's) of serosanquinous fluid in bag. Questions answered for patient, will follow up tomorrow for continued teaching.
[2016-09-03 19:28] VITALS: BP 119/83; PULSE 99; RESP 18; O2SAT 94
--- NOTE | 2016-09-03 19:34 | NUR ---
Ambulation 1-2 max assist to chair to bed. Very difficult for pt to get upright. FWW baseline. Lainez kept in related to this finding. Care continues.
[2016-09-03] MEDS: Insulin Human REGular Inj 100 UNIT in 0.9% Sodium Chloride-Pha MIX 100 ML IV SCH (20:09)
[2016-09-03] MEDS: Total Parenteral Nutrition 1 BAG IV SCH (21:03)
[2016-09-04] MEDS: Heparin 5,000 Unit/mL Inj SUBQ SCH ×3 (00:39→17:05)
[2016-09-04] MEDS: MetoCLOpramide 5 mg/mL 2 mL Inj IVPUSH PRN (00:41)
--- NOTE | 2016-09-04 04:50 | NUR ---
activity pt insulin gtt has been adjusted appropriately to keep pt within goal range this shift. it has required several adjustments of the insulin rate therefore she remains on q1h blood glucose check. pt has stated that her pain is well controlled. she asked not to be woken up for her scheduled tylenol and when she was awake she denied needing the tylenol. she has an intermittent cough that causes her some abdominal discomfort otherwise she has been comfortable all shift. she has tolerated her full liquid diet with no signs of N/V. she has not gotten out of bed despite encouragement this shift. there was an order to remove the ro cath so it will be removed this AM. care continues. Addendum: 09/04/16 at 0606 by SHERI MALDONADO RN ro removed at 0600. pt has not voided yet. will continue to monitor.
[2016-09-04 05:28] LABS: BASOPHILS % (AUTO) 0.5 % (0-3); MONOCYTES % (AUTO) 10.5 % (4-12); Mean Corpuscular Hemoglobin 34.2 pg (27.0-35.0); Mean Corpuscular Volume 107.8 fL (81-100); NEUTROPHILS % (AUTO) 65.1 % (40-74); Platelet Count 181 bil/L (150-400)
[2016-09-04 05:52] LABS: Phosphorus 2.6 mg/dL (2.5-4.9)
[2016-09-04] MEDS ORDERED: Insulin Human REGular Inj 100 UNIT in 0.9% Sodium Chloride-Pha MIX 100 ML IV SCH (08:07)
--- NOTE | 2016-09-04 08:07 | PCM.PNSURG ---
Subjective Visit Information: Reason for Visit Bowel Obstruction,Sigmoid Mass Surgery/Surgery Date sigmoid colectomy 09/01/16 Post-Op Day # Date of Admission: Aug 26, 2016 at 20:42 Hospital Day # Subjective: Stable overnight. 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 No emesis, no flatus/BM in ostomy bag. Out of bed to chair but not walking in halls yet. Blood glucose 130-221 in past 24h on insulin gtt Objective Intake and Output- Last 8 Hour 09/04/16 Cumulative From/Thru 07:00 08/26/16 14:40 - 09/04/16 06:17 Intake Total 1374 ml 12140 ml Output Total 1650 ml 53588 ml Balance -276 ml 5579 ml Intake Oral 200 ml 6860 ml IV Total 342 ml 03579 ml TPN/PPN 832 ml 4832 ml Output Urine Total 1650 ml 58106 ml Stool Total 0 ml 125 ml Gastric Drainage Total 220 ml Emesis 150 ml Estimated Blood Loss 100 ml # Voids 9 # Bowel Movements 17 General: Alert, Oriented X3, Cooperative, No Acute Distress Abdomen: Soft, Appropriately tender, Tympanic, Ostomy pink & viable Result Diagram: 09/04/16 0505 09/04/16 0505 Assessment & Plan Impression POD3 laparoscopic sigmoid colectomy for diverticular stricture Problems: Plan Oral pain meds, minimize narcotics Insulin gtt, I will change goal to 100-140 as for the past 3 days with goal of 100-180 he has had daily BS >180. Miralax Ambulation Await return of bowel function Resuscitation Status: DNR/DNI:Do Not Resuscitate/Intubate Jessica Hyatt MD Sep 04, 2016 08:07
[2016-09-04] MEDS: TPN Per Pharmacist XX SCH (08:30)
--- NOTE | 2016-09-04 10:54 | PCM.PHAPRO ---
Progress TPN Management: -Day 6 of TPN -macronutrients to remain the same per nutrition recommendation (AA 80gm, Dextrose 225gm, Lipids 40gm) -electrolytes have remained stable -will check a magnesium and phos level tomorrow am in addition to bmp -Plan: formula for this evening: PARENTERAL NUTRITION ORDERS 04-Sep-16 Standard Hang Time: 2100 Substrates Total kcal: 1485 AMINO ACIDS 80 g DEXTROSE 225 g Total Volume (mL): 1750 LIPIDS 40 g Sterile Water for Injection QS mL To Infuse Over (hrs): 24 Total Volume 1750 mL At at a rate of (mL/hr): 73 Additives Sodium Chloride 70 mEq "typical" daily requirements Sodium Acetate 40 mEq Sodium 50-120mEq Potassium Chloride 10 mEq Potassium 60-120mEq Potassium Phosphate 40 mEq Phosphate 20-40mEq Calcium Gluconate 9 mEq Magnesium 8-32mEq Magnesium Sulfate 8 mEq Calcium 9-22mEq Acetate* 80-120mEq Chloride* 80-120mEq Regular Insulin units *Depending on acid-base status Famotidine 40 mg Multivitamins 1 std dose Insulin Regimen Trace Elements 1 std dose none Thiamine mg Regular Low Intensity Subcut Folic Acid mg Regular Medium Intensity Subcut Ascorbic Acid mg Regular High Intensity Subcut Regular Insulin Infusion Other: Chrissy Chan [facility] Sep 04, 2016 10:54
--- NOTE | 2016-09-04 11:03 | PCM.PNMED ---
Subjective Date of Service Sep 04, 2016 Subjective Pt notes some improvement in discomfort/strength. Is craving a poached eat this morning, but no appetite for soft diet breakfast provided. Ostomy still having no out-put but she does endorse more notable stomach gurgling. Exam Vital Signs Vital Sign - Last Date Time Temp Pulse Resp B/P Pulse Ox O2 Delivery O2 Flow Rate FiO2 09/03/16 19:28 36.9 99 18 119/83 94 Room Air 09/02/16 10:10 1.00 Intake and Output 09/03/16 09/03/16 09/04/16 Cumulative From/Thru 15:00 23:00 07:00 08/26/16 14:40 - 09/04/16 06:17 Intake Total 1505 ml 1725 ml 1374 ml 43360 ml Output Total 1300 ml 1600 ml 1650 ml 05411 ml Balance 205 ml 125 ml -276 ml 5579 ml Intake Oral 200 ml 150 ml 200 ml 6860 ml IV Total 556 ml 630 ml 342 ml 81212 ml TPN/PPN 749 ml 945 ml 832 ml 4832 ml Output Urine Total 1300 ml 1600 ml 1650 ml 74991 ml Stool Total 0 ml 0 ml 0 ml 125 ml Gastric Drainage Total 220 ml Emesis 150 ml Estimated Blood Loss 100 ml # Voids 9 # Bowel Movements 17 Exam General: Alert, Oriented X3, Cooperative, Moderate Distress Mouth: Mucous Membranes Moist/[place] Chest & Lungs: Chest Wall Normal Cardiovascular: Regular Rate/Rhythm Abdomen: NOntender, mildly-distended, Incisional sites well healing, no evidence of infection.(+)bowel sounds with clicks and gurgles. Ostomy clean, scant amount of red serous fluid in bag. NO stool or gas noted. IVs and Medications Medications Reviewed: Medications were reviewed in detail Lab and Diagnostics Result Diagram: 09/04/16 0505 09/04/16 0505 X-Rays, CTs and MRIs PROCEDURE: CT ABDOMEN AND PELVIS WITH CONTRAST IMPRESSION: 1. Apple core lesion within the sigmoid colon most consistent with colorectal cancer with resultant partial obstruction as described above. Fat stranding and trace fluid suggest microperforation. No pat pneumoperitoneum. This finding was discussed with Dr. Meraz at 6:13 PM on 08/26/16. 2. Cholelithiasis. Dictated by: Zahra Jones M.D. on 08/26/2016 at 18:02 Approved by: Zahra Jones M.D. 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 1- Acute large bowel obstruction, present on admission - Possibly benign diverticular stricture - Failed colonoscopy [address] Barton - History of colon obstruction as seen on abdominal imaging since 2013. - 08/26/2016 Apple Core lesion seen on CT abdomen and pelvis with stool compaction proximal to stricture. - Appreciating surgery and GI consults. - Continue with supportive care including IV morphine and antiemetics as needed - Now S/P Laparoscopy sigmoidectomy on 09/01/2016), POD #3 - Symptoms improved , Advancing diet as tolerated. Will DC Insulin drip/tpn on surgical order. 2.- Acute leukocytosis, present on admission, recurrent, but low grade(17 --> 15 --> 11 --> 12today) 3. Hyperglycemia in a known type 2 diabetic, present on admission -Improved, minimal PO intake of food , on insulin drip per surgical order -continue low-dose correctional scale insulin -HgA1C 7.9 4. Hypertension, chronic, present on admission -Atenolol 50 mg daily and Losartan 25 mg daily 5. Hypothyroidism, present on admission, chronic, active -Levothyroxine 75 g daily 6. Insomnia -Temazepam 15 mg by mouth. Before bedtime -Melatonin 3 mg before bedtime 7. Transaminitis chronic, present on admission: mild and still improving 8. Hypokalemia : Replace potassium PRN Hemodynamically and clinically stable. Considering DC home vs more likely SNF based on recovery/PT recommendation Disposition: likely discharge in 1-2 days depending on ostomy output and ability to ADVANCE DIET. . Pain Evaluation: Adequate Pain Control GI Prophylaxis: Not indicated VTE Mechanical Devices: Intermittant Pneumatic CD Resuscitation Status: CPR: Attempt Resuscitation Time spent 30 MINUTES Tariq Petersen DO Sep 04, 2016 11:03
[2016-09-04 12:14] VITALS: BP 113/60; PULSE 90; RESP 18; O2SAT 97
[2016-09-04] MEDS: Polyethylene Glycol (PEG) 17 Gm Powder PO SCH (12:43)
[2016-09-04] MEDS: 0.9% Sodium Chloride 1,000 ML IV SCH (13:49)
--- NOTE | 2016-09-04 19:44 | NUR ---
Ro/Insulin Pt ro out at 0600 and pt able to void 200 by 1000. Pt had multiple voids during shift, but at 1530 started having increasing pain and dysuria. 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 When reassessed pt stated she felt like she was leaking urine when coughing. BS showed 903. In and out ro was 800ml. Pt tolerated well and had immediate relief from pain. Per MD continue to BS pt. Pt's insulin gtt controlled during shift and was q1 hour checks for most of day. MD changed goal range from 100-140. Pt able to only ambulate to chair once and BSC multiple times, but declined to walk in hallways. No output in colostomy despite Miralax. Bed in low, call light in reach.
[2016-09-04 20:40] VITALS: BP 104/62; PULSE 90; RESP 20; O2SAT 96
[2016-09-04] MEDS: Total Parenteral Nutrition 1 BAG IV SCH (21:00)
[2016-09-05] MEDS: Heparin 5,000 Unit/mL Inj SUBQ SCH ×3 (01:17→15:59)
[2016-09-05] MEDS: 0.9% Sodium Chloride 1,000 ML IV SCH (01:18)
--- NOTE | 2016-09-05 02:35 | NUR ---
urinary retention pt expressed bladder discomfort at start of shift. she was able to void 75cc at 1900 and then had a bladder scan of 450. an in and out cath was used and 450 was drained. pt expressed immediate relief. pt was encouraged to continue to try and void on her own. pt has been reluctant to get out of bed, she says she feels "it's too much work when I'm barely going to the bathroom". at 2330 pt started to feel discomfort again and she asked for an in and out cath. nurse asked pt to try and void on her own first. pt was able to void 100cc of urine. post void residual was 450. was called who said to continue to straight cath her for the night. An in and out cath drained another 450. pt again expressed relief. will continue to encourage pt to get out of bed to try and void on her own. care continues. Addendum: 09/05/16 at 0543 by SHERI MALDONADO RN pt was able to void 150 this AM. her post void residual was still 430 however she was having no discomfort and wanted to try and void on her own. pt is feeling exhausted from the amount of times she has to get up to try and void. nurse told pt that getting on a bed [place] was an option if she felt too tired to get up to the [facility]. pt went another 50cc on the bedpan. will continue to monitor. Addendum: 09/05/16 at 0741 by SHERI MALDONADO RN pt was still not able to void this AM. she had a bladder scan of 570. a straight cath drained 600cc at 0730.
[2016-09-05 04:32] VITALS: BP 123/70; PULSE 95; RESP 18; O2SAT 96
[2016-09-05 05:44] LABS: Magnesium 1.7 mg/dL (1.6-2.6); Phosphorus 4.2 mg/dL (2.5-4.9)
--- NOTE | 2016-09-05 08:19 | PCM.PNSURG ---
Subjective Visit Information: Reason for Visit Bowel Obstruction,Sigmoid Mass Surgery/Surgery Date sigmoid colectomy 09/01/16 Post-Op Day # Date of Admission: Aug 26, 2016 at 20:42 Hospital Day # Subjective: Stable overnight. Trace stool in ostomy bag. No gas. Required I&O cath. Objective Vital Sign- Last 8 Hours Date Time Temp Pulse Resp B/P Pulse Ox O2 Delivery O2 Flow Rate FiO2 09/05/16 04:32 36.7 95 18 123/70 96 Room Air Intake and Output- Last 8 Hour 09/05/16 Cumulative From/Thru 07:00 08/26/16 14:40 - 09/05/16 05:42 Intake Total 400 ml 64278 ml Output Total 1318 ml 97633 ml Balance -918 ml 5211 ml Intake Oral 400 ml 8020 ml IV Total 39959 ml TPN/PPN 5711 ml Output Urine Total 1318 ml 07103 ml Stool Total 0 ml 125 ml Gastric Drainage Total 220 ml Emesis 150 ml Estimated Blood Loss 100 ml # Voids 14 # Bowel Movements 17 General: Oriented X3, Cooperative, No Acute Distress Abdomen: Soft, Non-tender, Ostomy pink & viable Result Diagram: 09/04/16 0505 09/05/16 0455 Assessment & Plan Impression POD4 laparoscopic sigmoid colectomy Problems: Plan Await return of bowel function Continue current care otherwise Resuscitation Status: CPR: Attempt Resuscitation Jessica Hyatt MD Sep 05, 2016 08:19
[2016-09-05] MEDS: TPN Per Pharmacist XX SCH (08:30)
[2016-09-05 10:56] VITALS: BP 129/61; PULSE 90; RESP 19; O2SAT 95
--- NOTE | 2016-09-05 11:18 | PCM.PHAPRO ---
Progress Date of Service: Sep 05, 2016 TPN dosing per pharmacy Indication: bowel obstruction TPN Management (day 7): - Confirmed with hospitalist that surgery is managing TPN. Continue TPN. - No changes to macronutrients per dietitian (AA 80gm, Dextrose 225gm, Lipids 40gm). - Phosphate trending up (4.2 this am) so will decrease KPhos to 30 mEq and increase KCl to 20 mEq. - K+ trending down today but within normal range, will reassess K+ needs tomorrow. - Magnesium remains low (1.7 this am) so will increase magnesium sulfate to 10 mg. TPN has been ordered as follows: Substrates AMINO ACIDS 80 g DEXTROSE 225 g LIPIDS 40 g Sterile Water for Injection QS mL Total Volume 1750 mL Additives Sodium Chloride 70 mEq Sodium Acetate 40 mEq Potassium Chloride 20 mEq Potassium Phosphate 30 mEq Calcium Gluconate 9 mEq Magnesium Sulfate 10 mEq Regular Insulin units Famotidine 40 mg Multivitamins 1 std dose Trace Elements 1 std dose Thiamine mg Folic Acid mg Ascorbic Acid mg Will recheck phos tomorrow. Pharmacy to continue to monitor and dose TPN daily. Thank you, Ruth Kenny Pharmacist Ruth Kenny Sep 05, 2016 11:18
--- NOTE | 2016-09-05 11:34 | PCM.PNMED ---
Subjective Date of Service Sep 05, 2016 Subjective Feeling much more comfortable now that ro catheter has been placed Exam Vital Signs Vital Sign - Last Date Time Temp Pulse Resp B/P Pulse Ox O2 Delivery O2 Flow Rate FiO2 09/05/16 10:56 36.6 90 19 129/61 95 Room Air 09/02/16 10:10 1.00 Intake and Output 09/04/16 09/04/16 09/05/16 Cumulative From/Thru 15:00 23:00 07:00 08/26/16 14:40 - 09/05/16 05:42 Intake Total 2100 ml 400 ml 36406 ml Output Total 1550 ml 1318 ml 20660 ml Balance 550 ml -918 ml 5211 ml Intake Oral 760 ml 400 ml 8020 ml IV Total 461 ml 90353 ml TPN/PPN 879 ml 5711 ml Output Urine Total 1550 ml 1318 ml 15182 ml Stool Total 0 ml 125 ml Gastric Drainage Total 220 ml Emesis 150 ml Estimated Blood Loss 100 ml # Voids 5 14 # Bowel Movements 17 Exam General: Alert and oriented, no acute distress Heart: Regular Lungs: Clear anteriorly and laterally Extremities: No pedal edema IVs and Medications Medications Reviewed: Medications were reviewed in detail Lab and Diagnostics Result Diagram: 09/04/16 0505 09/05/16 0455 X-Rays, CTs and MRIs PROCEDURE: CT ABDOMEN AND PELVIS WITH CONTRAST IMPRESSION: 1. Apple core lesion within the sigmoid colon most consistent with colorectal cancer with resultant partial obstruction as described above. Fat stranding and trace fluid suggest microperforation. No pat pneumoperitoneum. This finding was discussed with Dr. Meraz at 6:13 PM on 08/26/16. 2. Cholelithiasis. Dictated by: Zahra Jones M.D. on 08/26/2016 at 18:02 Approved by: Zahra Jones M.D. 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 1- Acute large bowel obstruction, present on admission - History of colon obstruction as seen on abdominal imaging since 2013. - 08/26/2016 Apple Core lesion seen on CT abdomen and pelvis with stool compaction proximal to stricture. - Now S/P Laparoscopy sigmoidectomy on 09/01/2016), POD #4 - Symptoms improved , Advancing diet as tolerated. Will DC Insulin drip/tpn on surgical order. 2.- Acute leukocytosis, present on admission, recurrent, but low grade(17 --> 15 --> 11 --> 12 yesterday) # Acute urinary retention, may be due to immobility, pain, narcotics - after sev straight caths and persistent retention a ro was placed this morning and she is much more comfortable - cont ro 1-2 days then try DCing once up and eating and pain less 3. Hyperglycemia in a known type 2 diabetic, present on admission -Improved, minimal PO intake of food , on insulin drip per surgical order -continue low-dose correctional scale insulin as needed but glucose low 100's so no recent doses -HgA1C 7.9 4. Hypertension, chronic, present on admission -Atenolol 50 mg daily and Losartan 25 mg daily 5. Hypothyroidism, present on admission, chronic, active -Levothyroxine 75 g daily 6. Insomnia -Temazepam 15 mg by mouth. Before bedtime -Melatonin 3 mg before bedtime 7. Transaminitis chronic, present on admission: mild and still improving 8. Hypokalemia : Replace potassium PRN but normal today Hemodynamically and clinically stable. Considering DC home vs more likely SNF based on recovery/PT recommendation Disposition: likely discharge in 1-2 days depending on ostomy output and ability to ADVANCE DIET. . GI Prophylaxis: Not indicated VTE Mechanical Devices: Intermittant Pneumatic CD Resuscitation Status: CPR: Attempt Resuscitation Beverley Polanco MD Sep 05, 2016 11:34
--- NOTE | 2016-09-05 11:37 | NUR ---
Pt encouraged to ambulate w/nsg Pt is encouraged to ambulate w/nsg w/4WW 2-3x/day to continue progression of activity tolerance; PT will cont seeing daily for progression of functional mobility.
--- NOTE | 2016-09-05 11:49 | NUR ---
NUTRITION FOLLOW UP: ASSESS: Pt is an 81 YO female admitted with bowel obstruction. She is POD 4 for laparoscopic sigmoid colectomy. TPN started 08/30 and advanced to ~75% of needs 09/02. Pt continues to have minimal output via ostomy. PO intake on FL diet was been ~25-50%. PO avg x4 days is ~25%. PMHX: DM, SBO, hypothyroid, diverticulitis, colon malignancy, htn. LABS: Reviewed. 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 Tums, insulin GI: 0 colostomy output SKIN: Clifford 18 No major issues. WT: 99.2kg, BMI 36.4 kg/m2, admit wt 95.9kg, IBW 56.8kg DIET: Full liquid. PO avg 25% EST. NEEDS: BMI Kcals: 1965-2160kcal/day (20-22kcal/kg) Pro: 65-85g/day (1.2-1.5g/kg IBW) NUTRITION DIAGNOSIS: 1) Inadequate oral intake related to altered GI function as evidence by current CL diet order and previous need for bowel rest - PERSISTS. Pt on TPN. NUTRITION INTERVENTION: 1) Continue current TPN of 225g Dex, 80g AA and 40g lipids to provide 1405kcal and 80g pro (~75% kcal and 100% pro needs) as pt is tolerating ~25% of meals. Pharmacy is aware of recommendation. 2) Will continue to monitor PO intake and possible need to decrease TPN to ~50% of needs. If PO intake improves, recommend decrease TPN to 150g Dex, 50g AA and 25g lipids (960kcal and 50g pro) 5) Once diet advanced, and pt. meeting approx. 50% of her nutrient needs orally, recommend taper TPN appropriately. MONITOR / EVAL: TPN tolerance/adjustment, PO, GI, diet advance, wt, labs, POC, nutrition status. Will continue to monitor per high nutrition risk guidelines
[2016-09-05] MEDS: Polyethylene Glycol (PEG) 17 Gm Powder PO SCH (13:21)
--- NOTE | 2016-09-05 13:58 | PATH ---
SURGICAL PATHOLOGY Attending Physician:Jessica Hyatt MD CASE STATUS: Signed Out PATIENT NAME: KWABENA CORDERO PID: [id number] : 1935 DATE COLLECTED:09/01/2016 00:00 SPECIMEN: Colon, Segment Resection, Non-Tumor CLINICAL HISTORY: SIGMOID COLON STRICTURE 1). SIGMOID COLON FINAL DIAGNOSIS: 1.RESECTED SEGMENT OF SIGMOID COLON: MULTIPLE DIVERTICULI WITH AREAS OF INTRAMURAL NODULAR FIBROSIS. NEGATIVE FOR SIGNIFICANT INFLAMMATION. NEGATIVE FOR MALIGNANCY AND SIGNIFICANT ATYPIA. ICD10 CODE K57.30 GROSS DESCRIPTION: The specimen is received in formalin, labeled with the patient's name, sublabeled as sigmoid colon and consists of an opened unoriented segment of colon (length-16.5 cm, resection margin #1 diameter-3.5 cm, resection margin #2 diameter-2.5 cm) and with attached mesentery (up to 5.3 cm in depth). The mucosa (8.5 cm) nearest resection margin #1 is howard and shiny with normal folds. The remaining mucosa is howard to with compact distorted folds with a diffusely thickened wall. Multiple diverticuli are identified. No nodules masses or lesions are identified. Ink code: black-resection margin. Section code: (A) resection margin #1, longitudinally sectioned, direct marketing representative; (B) resection margin #2, longitudinally sectioned, direct marketing representative; (C-I) colon segment, serially sectioned and submitted from resection margin #1 to #2, direct marketing representative. 09/04/16 JM MICRO DESCRIPTION: See diagnosis. ICD-9 CODES: CPT CODES: 1: 43334 Electronically Signed Out Gabriel Miller MD [facility] Pathology [facility] [address], [place] [address] Technical component performed at [facility], [address] [place] [address] Ave[address], [place], [address]
[2016-09-05 17:07] VITALS: BP 108/74; PULSE 91; RESP 20; O2SAT 96
--- NOTE | 2016-09-05 19:19 | NUR ---
Lainez/Insulin/Activity Pt continuing to have urinary retention and bladder spasm. Increasing pain this AM, so orders obtained for indwelling Lainez that was placed at 1030. Immediately drained 800 output and pt had relief from pain. Pt continues on insulin gtt. Pt has no c/o pain, but is using scheduled Tylenol. Able to get pt to ambulate to chair twice and twice in hallways today. Pt tolerating full liquid diet and has increasing output in colostomy. Bed in low, call light in reach.
[2016-09-05 20:19] VITALS: BP 101/57; PULSE 92; RESP 18; O2SAT 96
[2016-09-05] MEDS: Total Parenteral Nutrition 1 BAG IV SCH (21:53)
[2016-09-05] MEDS: Phenazopyridine 97.5 mg Tablet PO PRN (23:06)
[2016-09-06] MEDS: 0.9% Sodium Chloride 1,000 ML IV SCH (01:15)
[2016-09-06] MEDS: Heparin 5,000 Unit/mL Inj SUBQ SCH ×3 (01:54→17:25)
[2016-09-06 04:27] VITALS: BP 125/80; PULSE 105; RESP 16; O2SAT 97
--- NOTE | 2016-09-06 04:27 | NUR ---
Insulin drip/ro/cough Pt continues on insulin drip, adjustments made and Pt was 1-2Q hr checks as BG was not consistent. Pt c/o bladder spasms and spasms in her urethra, spoke to and rec'd order for pyridium. Administered and Pt has relief and was able to sleep better this shift. Ro is patent and draining clear urine to gravity, Pt having good output. Pt cough has increased in frequency, it is moist and Pt says productive but could not produce sputum so this nurse could check. Encouraged Pt to cough and deep breathe as she has not been very mobile. Lungs have some wheezes that clear when she coughs
[2016-09-06 07:41] LABS: Phosphorus 4.3 mg/dL (2.5-4.9)
[2016-09-06] MEDS: TPN Per Pharmacist XX SCH (08:30)
--- NOTE | 2016-09-06 10:23 | NUR ---
NUTRITION FOLLOW UP: ASSESS: Pt is an 81 YO female admitted with bowel obstruction. She is POD 5 following laparoscopic sigmoid colectomy. TPN started 08/30 and advanced to ~75% of needs 09/02. Pt continues to have minimal output via ostomy and no flatus. PO intake on FL diet was been ~25-50%. PO avg x 4 days is ~25%. She refused breakfast today. Surgery awaiting return of bowel function prior to discontinuing TPN. PMHX: DM 2, SBO, hypothyroid, diverticulitis, colon malignancy, HTN. LABS: Cr 0.43, Glu 131. MEDS: Reviewed. Insulin.. GI: Trace stool in ostomy today. SKIN: Clifford 18. No major issues. Ostomy teaching ongoing per Guest Service Aide. WT: 97.9 kg, BMI 35.0 kg/m2, admit wt 95.9kg, IBW 56.8kg DIET: Full liquid. PO avg 25%, with exception of refusal of breakfast tray today. EST. NEEDS: BMI Kcals: 1965-2160kcal/day (20-22kcal/kg) Pro: 65-85g/day (1.2-1.5g/kg IBW) NUTRITION DIAGNOSIS: 1) Inadequate oral intake related to altered GI function as evidence by current full liquid diet order and previous need for bowel rest - PERSISTS WITH PT. REQUIRING TPN. NUTRITION INTERVENTION: 1) Continue current TPN of 225g Dex, 80g AA and 40g lipids to provide 1405kcal and 80g pro (~75% kcal and 100% pro needs) as pt is tolerating ~25% of meals. Pharmacy is aware of recommendation. 2) Will continue to monitor PO intake and possible need to decrease TPN to ~50% of needs. If PO intake improves, recommend decrease TPN to 150g Dex, 50g AA and 25g lipids (960kcal and 50g pro) 5) Once diet advanced, and pt. meeting approx. 50% of her nutrient needs orally, recommend taper TPN appropriately. 6) Will add supplements to trays to pique appetite. MONITOR / EVAL: TPN tolerance /adjustment, PO, GI, diet advance, wt, labs, POC, nutrition status. Will continue to monitor per high nutrition risk guidelines
--- NOTE | 2016-09-06 10:24 | NUR ---
MINDI signed by Pt GENE Redd
--- NOTE | 2016-09-06 10:28 | PCM.PHAPRO ---
Progress PARENTERAL NUTRITION ORDERS 8 06-Sep-16 Standard Hang Time: 2100 Substrates Total kcal: 1485 AMINO ACIDS 80 g DEXTROSE 225 g Total Volume (mL): 1750 LIPIDS 40 g Sterile Water for Injection QS mL To Infuse Over (hrs): 24 Total Volume 1750 mL At at a rate of (mL/hr): 73 Additives Sodium Chloride 70 mEq "typical" daily requirements Sodium Acetate 40 mEq Sodium 50-120mEq Potassium Chloride 20 mEq Potassium 60-120mEq Potassium Phosphate 20 mEq Phosphate 20-40mEq Calcium Gluconate 9 mEq Magnesium 8-32mEq Magnesium Sulfate 10 mEq Calcium 9-22mEq Acetate* 80-120mEq Chloride* 80-120mEq Regular Insulin units *Depending on acid-base status Famotidine 40 mg Multivitamins 1 std dose Insulin Regimen Trace Elements 1 std dose none Thiamine mg Regular Low Intensity Subcut Folic Acid mg Regular Medium Intensity Subcut Ascorbic Acid mg Regular High Intensity Subcut Regular Insulin Infusion Other: Special Instructions: To be infused via central line only. For delay or inturruption of TPN contact the pharmacist for alternative replacement solution. Signature Date: KWABENA CORDERO 1011 Ellis Muñoz Pharm.D Sep 06, 2016 10:28
--- NOTE | 2016-09-06 10:53 | NUR ---
Social Work: Continued Discharge Planning: Data & Assessment: EMR reviewed. Pt is on day 11 of hospitalization - admitted for bowel obstruction, sigmoid mass per H&P. PT recommends that pt go to a SNF at time of discharge. SW met with pt to discuss discharge planning. SW confirmed with pt that she will go to [facility] for SNF services at time of discharge. SNF paperwork in chart. Pt is agreeable to discharge plan. SW will continue to follow. Plan: Patient will discharge to [facility] when medically stable. SW will continue to follow. GENE Redd
--- NOTE | 2016-09-06 11:18 | PROG NOTE ---
[address] [address] PROGRESS NOTE PATIENT: KWABENA CORDERO : 1935 MR#: [id number] ADMIT: 08/26/2016 JOB ID: [id number] DATE: 09/06/2016 SUBJECTIVE: Postoperative day five following difficult laparoscopic sigmoid colectomy with Carlos procedure and left end colostomy by Dr. Hyatt. During the night, her ostomy opened up and she is now putting stool out. Last evening, she was having some trouble with full liquids but tolerated them better during the middle of the night. REVIEW OF SYSTEMS: Her appetite has not significantly changed although she did tolerate full liquids better in the middle of night. PHYSICAL EXAMINATION: Alert, no distress. She has recently been up walking. BMI 36, temperature 36.5, brachial blood pressure 125/80, pulse 105, respiratory rate 16, O2 sat on room air 97%. Abdomen: Her very small extraction site incision is healing well. Her ostomy is pink. There is stool in her appliance. LABORATORY TESTS: Glucose 131. Creatinine 0.43. IMPRESSION: Improved. PLAN: Diet can be advanced as tolerated. TPN could be weaned.
[2016-09-06] MEDS: Polyethylene Glycol (PEG) 17 Gm Powder PO SCH (13:17)
[2016-09-06] MEDS ORDERED: Glucose 40% Oral Gel 15 Gm Tube PO PRN (14:05)
[2016-09-06] MEDS ORDERED: TPN Per Pharmacist XX ONE (14:05)
--- NOTE | 2016-09-06 14:14 | PCM.PNMED ---
Subjective Date of Service Sep 06, 2016 Subjective No specific complaints, denies pain. Does not like offerings on full liquid tray. Says Dr. Barton told her she could eat whatever she likes but not yet ordered. Feels anxious about having Ro catheter removed as she does not want to experience the discomfort of distended bladder. Exam Vital Signs Vital Sign - Last Date Time Temp Pulse Resp B/P Pulse Ox O2 Delivery O2 Flow Rate FiO2 09/06/16 11:07 Room Air 09/06/16 04:27 36.5 105 16 125/80 97 09/02/16 10:10 1.00 Intake and Output 09/05/16 09/05/16 09/06/16 Cumulative From/Thru 15:00 23:00 07:00 08/26/16 14:40 - 09/06/16 06:34 Intake Total 1133 ml 560 ml 1648 ml 46279 ml Output Total 600 ml 1340 ml 1700 ml 31421 ml Balance 533 ml -780 ml -52 ml 4912 ml Intake Oral 560 ml 440 ml 9020 ml IV Total 343 ml 379 ml 40600 ml TPN/PPN 790 ml 829 ml 7330 ml Output Urine Total 600 ml 1340 ml 1700 ml 08725 ml Stool Total 0 ml 125 ml Gastric Drainage Total 220 ml Emesis 150 ml Estimated Blood Loss 100 ml # Voids 14 # Bowel Movements 17 Exam General: Alert and oriented, no acute distress Heart: Regular Lungs: Clear anteriorly and laterally Abdomen: Soft, bowel tones present, tender to moderate palpation Extremities: No pedal edema IVs and Medications Medications Reviewed: Medications were reviewed in detail Lab and Diagnostics Result Diagram: 09/04/16 0505 09/06/16 0630 X-Rays, CTs and MRIs PROCEDURE: CT ABDOMEN AND PELVIS WITH CONTRAST IMPRESSION: 1. Apple core lesion within the sigmoid colon most consistent with colorectal cancer with resultant partial obstruction as described above. Fat stranding and trace fluid suggest microperforation. No pat pneumoperitoneum. This finding was discussed with Dr. Meraz at 6:13 PM on 08/26/16. 2. Cholelithiasis. Dictated by: Zahra Jones M.D. on 08/26/2016 at 18:02 Approved by: Zahra Jones M.D. 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 1- Acute large bowel obstruction, present on admission - History of colon obstruction as seen on abdominal imaging since 2013. - 08/26/2016 Apple Core lesion seen on CT abdomen and pelvis with stool compaction proximal to stricture. - Now S/P Laparoscopy sigmoidectomy on 09/01/2016), POD #5 - Per Pathology related to diverticular disease - Symptoms improved , Advancing diet as tolerated. - Surgery note today says he per TPN so we will place an order for this 2.- Acute leukocytosis, present on admission, recurrent, but low grade( --> --> --> September 04) # Acute urinary retention, may be due to immobility, pain, narcotics - after sev straight caths and persistent retention a ro was placed this morning and she is much more comfortable - cont ro, then try DCing once up and eating and pain less, probably tomorrow 3. Hyperglycemia in a known type 2 diabetic, present on admission -Improved, minimal PO intake of food , on insulin drip per surgical order but will discontinue and just do low-dose correctional scale -HgA1C 7.9 4. Hypertension, chronic, present on admission -Atenolol 50 mg daily and Losartan 25 mg daily 5. Hypothyroidism, present on admission, chronic, active -Levothyroxine 75 g daily 6. Insomnia -Temazepam 15 mg by mouth. Before bedtime -Melatonin 3 mg before bedtime 7. Minimal elevation of ALT present on admission 8. Hypokalemia : Replaced potassium PRN but normal yesterday and today Disposition: likely discharge in 1-2 days depending on ostomy output and ability to ADVANCE DIET, will be going to SNF at [facility] Pain Evaluation: Adequate Pain Control GI Prophylaxis: Not indicated VTE Mechanical Devices: Intermittant Pneumatic CD Resuscitation Status: CPR: Attempt Resuscitation Beverley Polanco MD Sep 06, 2016 14:14
[2016-09-06 14:34] VITALS: BP 138/85; PULSE 90; RESP 18; O2SAT 95
--- NOTE | 2016-09-06 15:14 | NUR ---
Lainez catheter Pt stated that hospitalist informed her that her Lainez catheter would be removed tomorrow a.m. Pt is concerned about this because of the pain related to the urinary retention she experienced on Thursday. She stated that she put on her call light for assistance to the commode but that no one came to help her for a long time. Pt feels that a urologist should be consulted before her Lainez is removed. Advised pt that it will reduce the chance of infection if the Lainez is removed maddy, but told her I would ask the hospitalist about a urology consult. Pt agrees this is a good idea. Care continues.
[2016-09-06] MEDS: Insulin LISPRO 300 Unit/3 mL Inj SUBQ SCH ×2 (17:25→22:00)
[2016-09-06] MEDS: Total Parenteral Nutrition 1 BAG IV SCH (21:00)
[2016-09-06 21:16] VITALS: BP 146/69; PULSE 72; RESP 18; O2SAT 94
[2016-09-07] MEDS: Heparin 5,000 Unit/mL Inj SUBQ SCH ×3 (01:03→16:50)
[2016-09-07] MEDS: 0.9% Sodium Chloride 1,000 ML IV SCH (01:15)
--- NOTE | 2016-09-07 04:41 | NUR ---
Activity Pt ambulated 150ft this shift at nurses encouragement. Did fair, bedrest balance of shift. Pt has no appetite and has only had a couple bites of oatmeal. PO fluids encouraged but minimal intake this shift
[2016-09-07 05:45] VITALS: BP 107/73; PULSE 81; RESP 18; O2SAT 94
[2016-09-07] MEDS: Insulin LISPRO 300 Unit/3 mL Inj SUBQ SCH ×4 (09:12→22:00)
--- NOTE | 2016-09-07 09:28 | PCM.PHAPRO ---
Progress PARENTERAL NUTRITION ORDERS 8 06-Sep-16 Standard Hang Time: 2100 Substrates Total kcal: 960 AMINO ACIDS 50 g DEXTROSE 150 g Total Volume (mL): 1500 LIPIDS 25 g Sterile Water for Injection QS mL To Infuse Over (hrs): 24 Total Volume 1500 mL At at a rate of (mL/hr): 63 Additives Sodium Chloride 70 mEq "typical" daily requirements Sodium Acetate 40 mEq Sodium 50-120mEq Potassium Chloride 20 mEq Potassium 60-120mEq Potassium Phosphate 10 mEq Phosphate 20-40mEq Calcium Gluconate 9 mEq Magnesium 8-32mEq Magnesium Sulfate 10 mEq Calcium 9-22mEq Acetate* 80-120mEq Chloride* 80-120mEq Regular Insulin units *Depending on acid-base status Famotidine 40 mg Multivitamins 1 std dose Insulin Regimen Trace Elements 1 std dose none Thiamine mg Regular Low Intensity Subcut Folic Acid mg Regular Medium Intensity Subcut Ascorbic Acid mg Regular High Intensity Subcut Regular Insulin Infusion Other: Special Instructions: To be infused via central line only. For delay or inturruption of TPN contact the pharmacist for alternative replacement solution. Signature Date: KWABENA CORDERO [address] [facility] Ellis Muñoz Pharm.D Sep 07, 2016 09:27
--- NOTE | 2016-09-07 12:22 | PCM.PNMED ---
Subjective Date of Service Sep 07, 2016 Subjective No appetite yet, says voided 150 cc so far (ro out this am) Exam Vital Signs Vital Sign - Last Date Time Temp Pulse Resp B/P Pulse Ox O2 Delivery O2 Flow Rate FiO2 09/07/16 05:45 36.7 81 18 107/73 94 Room Air 09/02/16 10:10 1.00 Intake and Output 09/06/16 09/06/16 09/07/16 Cumulative From/Thru 15:00 23:00 07:00 08/26/16 14:40 - 09/07/16 06:08 Intake Total 134 ml 2572 ml 35803 ml Output Total 2050 ml 1625 ml 42992 ml Balance -1916 ml 947 ml 3943 ml Intake Oral 100 ml 800 ml 9920 ml IV Total 34 ml 115 ml 04518 ml TPN/PPN 1657 ml 8987 ml Output Urine Total 2000 ml 1600 ml 22359 ml Stool Total 50 ml 25 ml 200 ml Gastric Drainage Total 220 ml Emesis 150 ml Estimated Blood Loss 100 ml # Voids 14 # Bowel Movements 17 Exam General: Alert and oriented, no acute distress Heart: Regular Lungs: Clear anteriorly and laterally Abdomen: Soft, non-tender, brown liquid stool in ostomy bag Extremities: No pedal edema Lab and Diagnostics Result Diagram: 09/04/16 0505 09/06/16 0630 X-Rays, CTs and MRIs PROCEDURE: CT ABDOMEN AND PELVIS WITH CONTRAST IMPRESSION: 1. Apple core lesion within the sigmoid colon most consistent with colorectal cancer with resultant partial obstruction as described above. Fat stranding and trace fluid suggest microperforation. No pat pneumoperitoneum. This finding was discussed with Dr. Meraz at 6:13 PM on 08/26/16. 2. Cholelithiasis. Dictated by: Zahra Jones M.D. on 08/26/2016 at 18:02 Approved by: Zahra Jones M.D. 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 1- Acute large bowel obstruction, present on admission - History of colon obstruction as seen on abdominal imaging since 2013. - 08/26/2016 Apple Core lesion seen on CT abdomen and pelvis with stool compaction proximal to stricture. - Now S/P Laparoscopy sigmoidectomy on 09/01/2016), POD #5 - Per Pathology related to diverticular disease - Symptoms improved , Advancing diet as tolerated. - Surgery note yesterday says taper TPN so discussed with pharm but apparently not done as planned. Today's pharm says he spoke with Dr Barton (no prog note yet) who wants slow taper (50% rate today then with new bag calories cut 50% but back to prev rate) 2.- Acute leukocytosis, present on admission, recurrent, but low grade(17 --> 15 --> --> September 04) # Acute urinary retention, may be due to immobility, pain, narcotics - after sev straight caths and persistent retention a ro was placed 2 days ago - ro DC'd this am, monitor voids (bladder scan if needed) if retains will replace ro and leave until outpt urol eval arranged 3. Hyperglycemia in a known type 2 diabetic, present on admission -Improved, minimal PO intake of food , insulin drip DC'd, glu still 100's on minimal SSI -HgA1C 7.9 4. Hypertension, chronic, present on admission -Atenolol 50 mg daily and Losartan 25 mg daily 5. Hypothyroidism, present on admission, chronic, active -Levothyroxine 75 g daily 6. Insomnia -Temazepam 15 mg by mouth. Before bedtime -Melatonin 3 mg before bedtime 7. Minimal elevation of ALT present on admission 8. Hypokalemia : initially Replaced potassium PRN but normal since Disposition: discharge timing per surgery, tapering TPN with orders through tomorrow so anticipate it may be at least 2 more days, will be going to SNF at [facility] GI Prophylaxis: Not indicated VTE Mechanical Devices: Intermittant Pneumatic CD Resuscitation Status: CPR: Attempt Resuscitation Beverley Polanco MD Sep 07, 2016 12:22
[2016-09-07] MEDS: Polyethylene Glycol (PEG) 17 Gm Powder PO SCH (12:37)
--- NOTE | 2016-09-07 13:14 | PROG NOTE ---
[address] [address] PROGRESS NOTE PATIENT: KWABENA CORDERO : 1935 MR#: [id number] ADMIT: 08/26/2016 JOB ID: [id number] DATE: 09/07/2016 The patient is seen in followup. She has multiple complaints and concerns. She remains with a poor appetite. She denies nausea or vomiting. She is worried about her Lainez catheter coming out and having urinary retention. She is also complaining of perianal itching. She continues to have stool come out her ostomy. PHYSICAL EXAMINATION: Alert, no distress. Temperature 36.7, brachial blood pressure 107/73, pulse 81, respiratory rate 18, O2 sat room air 94%. Abdomen: Incisions healing well. Ostomy pink, abundant stool in the appliance. Perianal region is soiled and needs hygiene. IMPRESSION: 1. Anorexia. Not clear as to what the cause is but possibly due to the number of calories she is getting from TPN. I discussed this with Pharmacy and her TPN will be cut in half for the next 24 hours. 2. I spoke with her nurse, Elisabeth, who will closely monitor her after removal of her Lainez catheter. 3. Perianal itching. Will need daily nursing care.
[2016-09-07] MEDS: Phenazopyridine 97.5 mg Tablet PO PRN (14:30)
[2016-09-07 14:52] VITALS: BP 172/82; PULSE 95; RESP 20; O2SAT 97
--- NOTE | 2016-09-07 15:27 | NUR ---
Social Work: Readiness for Discharge Data/Assessment: EMR reviewed. Pt is on day 12 of hospitalization - admitted for bowel obstruction, sigmoid mass per H&P. PT recommends that pt go to a SNF at time of discharge. SW confirmed pt will go to [facility] for SNF services at time of discharge. SNF paperwork in chart. Pt is agreeable to discharge plan. SW will continue to follow. Plan: SW confirmed bed is available at [facility] and is accepted under care of Dr. De Jesus. Patient will discharge to [facility] when medically stable. SW will continue to follow. GENE Redd
--- NOTE | 2016-09-07 18:21 | NUR ---
Lainez cath / Post void residual Pt had her Lainez catheter removed at 0940 hrs. Pt has been able to void spontaneously throughout the day. She reports having bladder spasms when she is trying to void and that she needs to concentrate to void. Administered Pyridium to help pt with urgency and voiding discomfort. Post void bladder scan this afternoon showed residual of 361 mL. Pt voided 250 mL approximately 45 minutes later. Advised pt to maintain a 2-hour voiding schedule (or sooner if needed). Pt is agreeable to this plan. Care continues.
[2016-09-07 19:39] VITALS: BP 158/84; PULSE 86; RESP 20; O2SAT 97
[2016-09-07] MEDS: TPN Per Pharmacist XX SCH (20:45)
[2016-09-07] MEDS: Total Parenteral Nutrition 1 BAG IV SCH (22:13)
[2016-09-08] VITALS (7 sets, daily range): BP systolic 145–169; BP diastolic 66–83; PULSE 92–112; RESP 16–20; O2SAT 94–96
[2016-09-08] MEDS: Heparin 5,000 Unit/mL Inj SUBQ SCH ×3 (01:13→18:14)
[2016-09-08] MEDS: 0.9% Sodium Chloride 1,000 ML IV SCH (01:14)
[2016-09-08] MEDS: Phenazopyridine 97.5 mg Tablet PO PRN (03:26)
--- NOTE | 2016-09-08 07:00 | NUR ---
Frequent urinary urgency through night, early PVR showed nearly complete emptying of bladder; however, by ironworker wire fence erector PVR >500. In and out cath done per verbal order, continue with PVRs. Bladder spasms caused discomfort through night, prn medication given. Ostomy putting out liquid brown stool. TPN infusing. Bright red, painful skin around perineum noted during catheterization, brought to attention of daytime RN for report to Md.
[2016-09-08] MEDS: Insulin LISPRO 300 Unit/3 mL Inj SUBQ SCH ×4 (08:00→22:00)
--- NOTE | 2016-09-08 09:26 | PCM.PNSURG ---
Subjective Date of Service: Sep 08, 2016 Visit Information: Reason for Visit Bowel Obstruction,Sigmoid Mass Surgery/Surgery Date sigmoid colectomy 09/01/16 Post-Op Day # 7 Date of Admission: Aug 26, 2016 at 20:42 Hospital Day # Subjective: Nursing reports that the patient had a difficult night requiring in and out cath with postvoid residual of 400 mL. The patient had discomfort secondary to "bladder spasms". She is much more comfortable on peridium at this time. She reports eating a cheeseburger with no burning for dinner last night with no nausea or vomiting. Pain is well-controlled with Tylenol. She ambulated a short to moderate distance in the hallway yesterday with an assist front wheel walker device. Nursing was also requesting nystatin for perivaginal redness. Postop General: Other (as above) Gastrointestinal: Good Appetite (better since TPN was decreased yesterday), Tolerating Oral Feedings, Passing Stool (via ostomy) Pain Management: PO Postop Activity: Ambulates with Assist Device Objective Vital Sign- Last 8 Hours Date Time Temp Pulse Resp B/P Pulse Ox O2 Delivery O2 Flow Rate FiO2 09/08/16 05:56 36.9 92 18 155/77 94 Room Air Intake and Output- Last 8 Hour 09/08/16 Cumulative From/Thru 07:00 08/26/16 14:40 - 09/08/16 07:00 Intake Total 880 ml 05223 ml Output Total 1800 ml 26648 ml Balance -920 ml 2784 ml Intake Oral 350 ml 49357 ml IV Total 28527 ml TPN/PPN 530 ml 96865 ml Output Urine Total 1700 ml 96202 ml Stool Total 100 ml 500 ml Gastric Drainage Total 220 ml Emesis 150 ml Estimated Blood Loss 100 ml # Voids 7 21 # Bowel Movements 0 17 General: Alert, Cooperative, No Acute Distress Lungs: Clear to Auscultation (in the anterolateral hernandez) Heart: Regular Rate/Rhythm (distant) Abdomen: Soft, Non-tender, Ostomy pink & viable (with stool in the bag) SURGICAL WOUND : Wound General Appearence: Sutures, Intact, No Erythema, No Discharge Extremities: Thigh&Calf Soft/Nontender Neuro: Normal Speech Catheters: None Result Diagram: 09/04/16 8329 09/06/16 0630 Assessment & Plan Impression Primary diagnosis: Sigmoid diverticular stricture. POD #7 following Pak's procedure. Appetite increasing, ostomy functioning, mobility increasing. Other chronic conditions: 1. partial small bowel obstruction September 2014 2. Reports DM 3. Hypothyroidism. 4. History of recurrent diverticulitis 5. Chronic insomnia 6. Peripheral neuropathy 7. Hypertension 8. History of a crush lumbar vertebra and now has chronic pain Problems: Plan 1. Impact and oral diet was discussed and encouraged. 2. Nursing will perform bladder scans through the day and in and out cath as necessary. 3. Continue Pyridium as needed. 4. Nursing will contact wound care for ongoing ostomy instruction. 5. Nystatin to perineum. 6. Ambulation is encouraged. Pain Management: Oral Tylenol Oral hydrocodone VTE Prophylaxis: Sub-Q Heparin (Unfractionated), SCDs Resuscitation Status: CPR: Attempt Resuscitation Manav Hermosillo PA-C Sep 08, 2016 09:26
--- NOTE | 2016-09-08 10:14 | NUR ---
MINDI signed @ 10AM
--- NOTE | 2016-09-08 11:05 | NUR ---
NUTRITION FOLLOW UP: ASSESS: Pt is an 81 YO female admitted with bowel obstruction. She is POD 7 following laparoscopic sigmoid colectomy. TPN started 08/30 and advanced to ~75% of needs 09/02. Pt with improved appetite/po intake last night per surgeon notes, attempted to discuss diet/supplements today but pt was working with PT. Notes from 09/07 indicate TPN ran at 50% rate to decrease kcal in TPN and help with appetite. New TPN orders today given to pharmacist from to reduce TPN until MD/Surgeon discontinues TPN/po intake from pt remains improved--message left with Manav Hermosillo regarding TPN . PMHX: DM 2, SBO, hypothyroid, diverticulitis, colon malignancy, HTN. LABS: No new labs since 09/06; pharmacist requesting new labs from RN. MEDS: Reviewed. Insulin.. GI: Ostomy functioning, 100ml stool SKIN: Clifford 18. No major issues. Ostomy teaching ongoing per [employer] Kil[employer]er. WT: 98.4 kg, BMI 36.1kg/m2, admit wt 95.9kg, IBW 56.8kg NUTRITION SUPPORT: 150g dextrose, 20g AA, 15g lipids (running at 50%) DIET: General. Impact all trays. PO 0-50%. EST. NEEDS: BMI Kcals: 1965-2160kcal/day (20-22kcal/kg) Pro: 65-85g/day (1.2-1.5g/kg IBW) NUTRITION DIAGNOSIS: 1) Inadequate oral intake related to altered GI function as evidence by current full liquid diet order and previous need for bowel rest - IMPROVING. NUTRITION INTERVENTION: 1) TPN reduced to 100g dextrose, 20g AA, 15g lipids to provide 570kcal, 20g protein. Recommend monitoring po intake, if remains 50% or > x 24 hrs would recommend discontinuing. 2) Continue with Impact supplements, will modify pending pt established preferences. 3) Message left with surgeon re potential for TPN discontinuation. MONITOR / EVAL: TPN tolerance /adjustment, PO, GI, diet advance, wt, labs, POC, nutrition status. Will continue to monitor per high nutrition risk guidelines Addendum: 09/09/16 at [address] Pt is tolerating general diet and has stool in ostomy bag. Per surgery, TPN is to stop today. Will continue to monitor per high nutrition risk guidelines
[2016-09-08 11:58] LABS: Magnesium 1.8 mg/dL (1.6-2.6); Phosphorus 3.2 mg/dL (2.5-4.9)
[2016-09-08] MEDS: Polyethylene Glycol (PEG) 17 Gm Powder PO SCH (12:00)
--- NOTE | 2016-09-08 15:31 | PCM.PNMED ---
Subjective Date of Service Sep 08, 2016 Subjective Unable to obtain ROS 2ndry to patient refusing to answer questions or be examined. Introduced myself and asked for her name. Patient says she is "tired of playing these games" says has already been examined several times today and doesn't want to be examined or answer my questions. Exam Vital Signs Vital Sign - Last Date Time Temp Pulse Resp B/P Pulse Ox O2 Delivery O2 Flow Rate FiO2 09/08/16 15:15 36.5 98 18 156/83 96 Room Air 09/02/16 10:10 1.00 Intake and Output 09/07/16 09/07/16 09/08/16 Cumulative From/Thru 15:00 23:00 07:00 08/26/16 14:40 - 09/08/16 07:00 Intake Total 1211 ml 880 ml 45770 ml Output Total 1450 ml 1800 ml 09966 ml Balance -239 ml -920 ml 2784 ml Intake Oral 420 ml 350 ml 28812 ml IV Total 129 ml 14774 ml TPN/PPN 662 ml 530 ml 28883 ml Output Urine Total 1250 ml 1700 ml 62941 ml Stool Total 200 ml 100 ml 500 ml Gastric Drainage Total 220 ml Emesis 150 ml Estimated Blood Loss 100 ml # Voids 7 21 # Bowel Movements 0 17 Exam Refusing to be examined. IVs and Medications Medications Reviewed: Medications were reviewed in detail Lab and Diagnostics Result Diagram: 09/04/16 0505 09/08/16 1115 X-Rays, CTs and MRIs PROCEDURE: CT ABDOMEN AND PELVIS WITH CONTRAST IMPRESSION: 1. Apple core lesion within the sigmoid colon most consistent with colorectal cancer with resultant partial obstruction as described above. Fat stranding and trace fluid suggest microperforation. No pat pneumoperitoneum. This finding was discussed with Dr. Meraz at 6:13 PM on 08/26/16. 2. Cholelithiasis. Dictated by: aZhra Jones M.D. on 08/26/2016 at 18:02 Approved by: Zahra Jones M.D. 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 1. Acute large bowel obstruction, present on admission - History of colon obstruction as seen on abdominal imaging since 2013. - 08/26/2016 Apple Core lesion seen on CT abdomen and pelvis with stool compaction proximal to stricture. - Now S/P Laparoscopy sigmoidectomy on 09/01/2016 - Per Pathology related to diverticular disease - Further post-op management and tapering of TPN per surgery consult 2. Acute leukocytosis, present on admission, recurrent, but low grade - Followup repeat labs in am. 3. Hyperglycemia in a known type 2 diabetic, present on admission - Improved, minimal PO intake of food , insulin drip DC'd, glu still 100's on minimal SSI - HgA1C 7.9 4. Hypertension, chronic, present on admission - Atenolol 50 mg daily and Losartan 25 mg daily 5. Hypothyroidism, present on admission, chronic, active - Levothyroxine 75 g daily 6. Insomnia - Temazepam 15 mg by mouth. Before bedtime - Melatonin 3 mg before bedtime 7. Minimal elevation of ALT present on admission - Followup Disposition: discharge timing per surgery, tapering TPN GI Prophylaxis: Not indicated VTE Prophylaxis: Sub-Q Heparin (Unfractionated), SCDs VTE Mechanical Devices: Intermittant Pneumatic CD Resuscitation Status: CPR: Attempt Resuscitation Alex Jeffries Sep 08, 2016 15:31
--- NOTE | 2016-09-08 16:08 | NUR ---
Social Work-readiness for discharge: Data:EMR Reviewed. Pt is on day 13 of hospitalization for bowel obstruction per H&P. Pt is not medically stable anticipate 1-2 more days. Working on tapering pt off of TPN prior to discharge. PT has seen pt and recommended home pt ambulating 125ft. 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 [facility] has accepted pt when medically stable. Pt and daughter updated and agreeable to plan. Paperwork and PASRR in the chart. SW will continue to follow. Assessment:Pt who would benefit from SNF. Plan:Pt to discharge to [facility] when medically stable. Paperwork and PASRR in the chart. SW will continue to follow. GENE Knox
--- NOTE | 2016-09-08 17:19 | PCM.PNMED ---
Subjective Date of Service Sep 08, 2016 Subjective Patient is seen and examined. I had a long discussion with her and she states that she is not taking pain medications because sheshe can tolerate pain especially after crushed back. She says that shethat she is being tapered off her TPN and she is fine with that plan. Endorsing bladder spasms. She is unsure if it is helping with the pain. She has been ambulating and doing better with PT OT. She hopes to go to be requested for recovery and go back to her independent living setting. Exam Vital Signs Vital Sign - Last Date Time Temp Pulse Resp B/P Pulse Ox O2 Delivery O2 Flow Rate FiO2 09/08/16 15:15 36.5 98 18 156/83 96 Room Air 09/02/16 10:10 1.00 Intake and Output 09/07/16 09/07/16 09/08/16 Cumulative From/Thru 15:00 23:00 07:00 08/26/16 14:40 - 09/08/16 07:00 Intake Total 1211 ml 880 ml 83524 ml Output Total 1450 ml 1800 ml 93120 ml Balance -239 ml -920 ml 2784 ml Intake Oral 420 ml 350 ml 63410 ml IV Total 129 ml 40905 ml TPN/PPN 662 ml 530 ml 86461 ml Output Urine Total 1250 ml 1700 ml 58932 ml Stool Total 200 ml 100 ml 500 ml Gastric Drainage Total 220 ml Emesis 150 ml Estimated Blood Loss 100 ml # Voids 7 21 # Bowel Movements 0 17 Exam Gen.: No acute distress pleasant HEENT: Normocephalic, atraumatic Heart: Regular rate and rhythm no S3-S4 sounds Lungs: Clear to auscultation no wheezing or crackles heard Abdomen surgical incision sites are clean and dry. Ostomy site is clean and dry. Green stool can be seen in the ostomy bag Extremities: Positive for edema Neuro: No focal deficits. Some long-term memory loss. Psych: Negative for anxiety IVs and Medications IV Fluids TPN that is being tapered off the goal is to stop by tomorrow a.m. Medications Reviewed: Medications were reviewed in detail Lab and Diagnostics Result Diagram: 09/04/16 0505 09/08/16 1115 X-Rays, CTs and MRIs PROCEDURE: CT ABDOMEN AND PELVIS WITH CONTRAST IMPRESSION: 1. Apple core lesion within the sigmoid colon most consistent with colorectal cancer with resultant partial obstruction as described above. Fat stranding and trace fluid suggest microperforation. No pat pneumoperitoneum. This finding was discussed with Dr. Meraz at 6:13 PM on 08/26/16. 2. Cholelithiasis. Dictated by: Zahra Jones M.D. on 08/26/2016 at 18:02 Approved by: Zahra Jones M.D. 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 1. Acute large bowel obstruction, present on admission - History of colon obstruction as seen on abdominal imaging since 2013. - 08/26/2016 Apple Core lesion seen on CT abdomen and pelvis with stool compaction proximal to stricture. - Now S/P Laparoscopy sigmoidectomy on 09/01/2016 - Per Pathology related to diverticular disease - Further post-op management and tapering of TPN per surgery consult -- TPN is being tapered off per surgical team. 2. Acute leukocytosis, present on admission, recurrent, but low grade - Followup repeat labs in am. 3: Acute bladder spasm: Currently on when necessary azo -- We will consider belladonna alkaloids if need be -- UA sent. We will follow the result 3. Hyperglycemia in a known type 2 diabetic, present on admission - Improved, minimal PO intake of food , insulin drip DC'd, glu still 100's on minimal SSI - HgA1C 7.9 -- Started her on metformin 500 mg by mouth twice a day based on her trending of blood glucose 4. Hypertension, chronic, present on admission - She is currently on hydrochlorothiazide. All the rest of home meds are held -- Orthostatic blood pressures are ordered to make sure she will not have trouble with taking all her home meds prior to advancing 5. Hypothyroidism, present on admission, chronic, active - Levothyroxine 75 g daily 6. Insomnia - She is on trazodone here 7. Minimal elevation of ALT present on admission -Continue to monitor Disposition: discharge timing per surgery, tapering TPN Pain Evaluation: Adequate Pain Control GI Prophylaxis: Not indicated VTE Prophylaxis: Sub-Q Heparin (Unfractionated), SCDs VTE Mechanical Devices: Intermittant Pneumatic CD Resuscitation Status: CPR: Attempt Resuscitation Gely Macias DO Sep 08, 2016 17:11
--- NOTE | 2016-09-08 19:45 | NUR ---
Activity/Pain/Voiding/Post Residual Void Pt up to [facility] [place] [facility] and [facility], took all daily meals in [place] and ambulated with PT in hallway, steady gait and good pace. Tolerating activities well, c/o pain with movement but tolerable per pt, no pain medication given during day shift. Will continue to monitor with frequent rounds. Pt c/o spasms with voiding urine today, offered medication for this and pt refused. Stated spasms are still there, but not lasting as long. Pt voiding 500cc's with post residual void of 184mls; later in day voiding 200 with post residual of 100mls. Will continue to monitor.
[2016-09-08 20:15] LABS: APPEARANCE,URINE HAZY (CLEAR,HAZY); COLOR,URINE ORANGE (YELLOW); OCCULT BLOOD,URINE LARGE (NEGATIVE)
[2016-09-09] MEDS: Heparin 5,000 Unit/mL Inj SUBQ SCH ×3 (00:30→16:30)
[2016-09-09] MEDS: 0.9% Sodium Chloride 1,000 ML IV SCH (01:15)
--- NOTE | 2016-09-09 04:23 | NUR ---
Activity/PVR PVR checked and is zero. Pt states only pain she is experiencing is intermittent bladder spasm, no pyridium requested. Chonic back pain at baseline level and she does not want scheduled APAP. Pt requests to be undisturbed through the night, 0030 heparin will be held until pt agrees to injection. Pt reports itching and nystatin cream applied to perirectal area- redness noted with white substance on skin- may be baby powder that pt has been applying. Pt is happy to hear she may be able to go to rehab soon, she is eager to 'get her life back'. Care continues Addendum: 09/09/16 at 0639 by MOHIT CABRALES RN Pt reports awaking with spasm and incontinence, states she would try the pyridium again. New ostomy wafer surefit 70mm oblong, and new bag. Educated pt while applying. 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
[2016-09-09 05:27] VITALS: BP 153/79; PULSE 103; RESP 20; O2SAT 97
[2016-09-09 06:26] LABS: BASOPHILS % (AUTO) 0.5 % (0-3); EOSINOPHILS % (AUTO) 2.7 % (0-5); MONOCYTES % (AUTO) 10.2 % (4-12); Mean Corpuscular Hemoglobin 33.6 pg (27.0-35.0); Mean Corpuscular Volume 105.2 fL (81-100); NEUTROPHILS % (AUTO) 65.4 % (40-74); Platelet Count 231 bil/L (150-400)
[2016-09-09] MEDS: Insulin LISPRO 300 Unit/3 mL Inj SUBQ SCH ×4 (08:00→21:53)
--- NOTE | 2016-09-09 08:20 | PCM.PNSURG ---
Subjective Visit Information: Reason for Visit Bowel Obstruction,Sigmoid Mass Surgery/Surgery Date sigmoid colectomy 09/01/16 Post-Op Day # Date of Admission: Aug 26, 2016 at 20:42 Hospital Day # Subjective: Stable overnight. + stool in ostomy bag. Tolerating regular food. Stool in ostomy bag. Objective Vital Sign- Last 8 Hours Date Time Temp Pulse Resp B/P Pulse Ox O2 Delivery O2 Flow Rate FiO2 09/09/16 05:27 36.5 103 20 153/79 97 Room Air Intake and Output- Last 8 Hour 09/09/16 Cumulative From/Thru 07:00 08/26/16 14:40 - 09/09/16 05:27 Intake Total 800 ml 91824 ml Output Total 975 ml 00957 ml Balance -175 ml 2685 ml Intake Oral 800 ml 98991 ml IV Total 59271 ml TPN/PPN 03348 ml Output Urine Total 950 ml 78929 ml Stool Total 25 ml 625 ml Gastric Drainage Total 220 ml Emesis 150 ml Estimated Blood Loss 100 ml # Voids 21 # Bowel Movements 17 General: Alert, Oriented X3, Cooperative, No Acute Distress Abdomen: Soft, Non-tender, Ostomy pink & viable Result Diagram: 09/09/16 0611 09/09/16 0600 Assessment & Plan Impression 81yof POD8 laparoscopic sigmoid colectomy. Her main complaint is bladder spasms with incontinence. Problems: Plan d/c TPN Control blood sugars Regular diet consider urology consult if bladder spasms continue VTE Prophylaxis: Sub-Q Heparin (Unfractionated), SCDs Resuscitation Status: CPR: Attempt Resuscitation Jessica Hyatt MD Sep 09, 2016 08:20
[2016-09-09] MEDS: Polyethylene Glycol (PEG) 17 Gm Powder PO SCH (11:20)
[2016-09-09 14:28] VITALS: BP 169/78; PULSE 101; RESP 15; O2SAT 96
[2016-09-09] MEDS: Phenazopyridine 97.5 mg Tablet PO PRN (16:30)
--- NOTE | 2016-09-09 17:02 | NUR ---
Activity Pt encouraged to get up OOB to chair for dinner. Used rolling walker and tolerated well. Daughter at bedside.
[2016-09-09 18:50] VITALS: BP 141/81
[2016-09-09] MEDS: cefTRIAXone Inj 1,000 MG in Dextrose 5% Minibag Plus 50 ML IV SCH (20:01)
[2016-09-09 20:30] VITALS: BP 159/62; PULSE 98; RESP 16; O2SAT 98
--- NOTE | 2016-09-09 21:20 | PCM.PNMED ---
Subjective Date of Service Sep 09, 2016 Subjective Patient is visiting with her daughter in the room. Patient states that her bladder spasms are getting worse, she tends to get a spasm and then lose urine. She thinks she was given 1 dose of azo today. Since she does not have rectum it will not be appropriate to administer belladonna alkaloids. Patient states she is very tired today, still not using anything for pain. TPN is stopped last night. Patient states her appetite has not completely returned yet No other concerns Exam Vital Signs Vital Sign - Last Date Time Temp Pulse Resp B/P Pulse Ox O2 Delivery O2 Flow Rate FiO2 09/09/16 05:27 36.5 103 20 153/79 97 Room Air Intake and Output 09/08/16 09/08/16 09/09/16 Cumulative From/Thru 15:00 23:00 07:00 08/26/16 14:40 - 09/09/16 05:27 Intake Total 600 ml 726 ml 800 ml 55021 ml Output Total 650 ml 600 ml 975 ml 82877 ml Balance -50 ml 126 ml -175 ml 2685 ml Intake Oral 600 ml 800 ml 43191 ml IV Total 604 ml 72993 ml TPN/PPN 122 ml 72404 ml Output Urine Total 650 ml 500 ml 950 ml 09962 ml Stool Total 100 ml 25 ml 625 ml Gastric Drainage Total 220 ml Emesis 150 ml Estimated Blood Loss 100 ml # Voids 21 # Bowel Movements 17 Exam General: NAD, laying in bed, HEENT: NCAT, poor dentition Eyes: [place] conjunctivae. No ptosis, Neck: No masses, trachea midline, no thyromegaly Lungs: CTA with normal respiratory effort, no crackles or wheezes CV: RRR, no murmurs/rubs/gallops, GI: Soft, non-tender with no hepatosplenomegaly Skin: Warm and dry. Psych: A&O X3, with appropriate affect IVs and Medications Medications Reviewed: Medications were reviewed in detail Lab and Diagnostics Laboratory Tests Test 09/09/16 06:00 09/09/16 06:11 Sodium Level 139mEq/L (134-144) Potassium Level 4.2mEq/L (3.5-5.2) Chloride Level 101mEq/L (97-108) Carbon Dioxide Level 22mmol/L (18-29) Blood Urea Nitrogen 19mg/dL (8-27) Creatinine 0.47mg/dL (0.57-1.00) Estimat Glomerular Filtration Rate 181mL/min (>59) Glucose Level 145mg/dL (60-99) Calcium Level 9.5mg/dL (8.5-10.1) Total Bilirubin 0.8mg/dL (0.0-1.2) Aspartate Amino Transf (AST/SGOT) 73U/L (0-50) Alanine Aminotransferase (ALT/SGPT) 45U/L (0-32) Alkaline Phosphatase 128U/L (25-165) Total Protein 5.8g/dL (6.4-8.4) Albumin 3.5g/dL (3.4-5.0) White Blood Count 14.9th/mm3 (3.8-10.1) Red Blood Count 3.66mil/mm3 (3.90-5.20) Hemoglobin 12.3g/dL (12.0-15.6) Hematocrit 38.5% (35.0-46.0) Mean Corpuscular Volume 105.2fL (81-100) Mean Corpuscular Hemoglobin 33.6pg (27.0-35.0) Mean Corpuscular Hemoglobin Concent 31.9% (32.0-37.0) Red Cell Distribution Width 13.8% (12.3-15.4) Platelet Count 231bil/L (150-400) Neutrophils (%) (Auto) 65.4% (40-74) Lymphocytes (%) (Auto) 17.6% (14-46) Monocytes (%) (Auto) 10.2% (4-12) Eosinophils (%) (Auto) 2.7% (0-5) Basophils (%) (Auto) 0.5% (0-3) Microbiology 09/08/16 Urine Culture - Preliminary, Resulted Result Diagram: 09/04/16 0505 09/08/16 1115 X-Rays, CTs and MRIs PROCEDURE: CT ABDOMEN AND PELVIS WITH CONTRAST IMPRESSION: 1. Apple core lesion within the sigmoid colon most consistent with colorectal cancer with resultant partial obstruction as described above. Fat stranding and trace fluid suggest microperforation. No pat pneumoperitoneum. This finding was discussed with Dr. Meraz at 6:13 PM on 08/26/16. 2. Cholelithiasis. Dictated by: Zahra Jones M.D. on 08/26/2016 at 18:02 Approved by: Zahra Jones M.D. 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 1. Acute large bowel obstruction, present on admission - History of colon obstruction as seen on abdominal imaging since 2013. - 08/26/2016 Apple Core lesion seen on CT abdomen and pelvis with stool compaction proximal to stricture. - Now S/P Laparoscopy sigmoidectomy on 09/01/2016 - Per Pathology related to diverticular disease - Further post-op management and tapering of TPN per surgery consult -- TPN is being tapered off per surgical team.: Stopped completely last night 2. Acute leukocytosis, present on admission, recurrent, but low grade - Followup repeat labs in am. -- Resolved 3: Acute bladder spasm: Currently on when necessary azo -- We will consider belladonna alkaloids if need be: Cannot use rectal suppositories -- UA sent. : Positive for infection sensitivities are pending. Tried Keflex but as she appears very symptomatic we will switch to ceftriaxone IV 3. Hyperglycemia in a known type 2 diabetic, present on admission - Improved, minimal PO intake of food , insulin drip DC'd, glu still 100's on minimal SSI - HgA1C 7.9 -- Started her on metformin 500 mg by mouth twice a day based on her trending of blood glucose 4. Hypertension, chronic, present on admission - She is currently on hydrochlorothiazide. All the rest of home meds are held -- Orthostatic blood pressures are ordered to make sure she will not have trouble with taking all her home meds prior to advancing: Negative for orthostatic hypotension -- Added lisinopril 5 mg daily 5. Hypothyroidism, present on admission, chronic, active - Levothyroxine 75 g daily 6. Insomnia - She is on trazodone here 7. Minimal elevation of ALT present on admission -Continue to monitor Disposition: discharge timing per surgery, tapering TPN GI Prophylaxis: Not indicated VTE Prophylaxis: Sub-Q Heparin (Unfractionated), SCDs VTE Mechanical Devices: Intermittant Pneumatic CD Resuscitation Status: CPR: Attempt Resuscitation Gely Macias DO Sep 09, 2016 05:50
[2016-09-10] MEDS: Heparin 5,000 Unit/mL Inj SUBQ SCH ×3 (00:31→17:50)
[2016-09-10] MEDS: 0.9% Sodium Chloride 1,000 ML IV SCH (00:42)
[2016-09-10] MEDS: Phenazopyridine 97.5 mg Tablet PO PRN ×2 (05:37→17:50)
[2016-09-10 05:45] VITALS: BP 99/64; PULSE 101; RESP 18; O2SAT 94
[2016-09-10 07:15] LABS: Mean Corpuscular Hemoglobin 33.9 pg (27.0-35.0); Mean Corpuscular Volume 105.6 fL (81-100)
[2016-09-10 08:15] VITALS: BP 134/76; PULSE 99; RESP 16; O2SAT 93
[2016-09-10] MEDS: Insulin LISPRO 300 Unit/3 mL Inj SUBQ SCH ×4 (09:12→21:52)
--- NOTE | 2016-09-10 11:32 | NUR ---
Social Work-readiness for discharge: Data:EMR Reviewed. Pt is on day 15 of hospitalization for bowel obstruction per H&P. Pt is not medically stable anticipate 1-2 more days. Pt is now off the TPN and they are treating her for UTI. PT has seen pt and recommended home pt ambulating 150-200ft. 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 [facility] aware of plan and ready to accept. SW updated pt at bedside and she and daughter are agreeable to plan. Paperwork and PASRR in the chart. SW will continue to follow. Assessment:Pt who would benefit from SNF. Plan:Pt to discharge to [facility] when medically stable. Paperwork and PASRR in the chart. SW will continue to follow. GENE Knox
[2016-09-10 12:22] VITALS: BP 125/81; PULSE 98; RESP 16; O2SAT 95
--- NOTE | 2016-09-10 12:40 | PCM.PNSURG ---
Subjective Visit Information: Reason for Visit Bowel Obstruction,Sigmoid Mass Surgery/Surgery Date sigmoid colectomy 09/01/16 Post-Op Day # Date of Admission: Aug 26, 2016 at 20:42 Hospital Day # Subjective: Urinary tract infection with Citrobacter Freundii as cultures have been completed. Antibiotics were instituted last night. Oral intake 1400 mL. She continues to have stool output from her ostomy. Abdomen is soft and nontender. Objective Vital Sign- Last 8 Hours Date Time Temp Pulse Resp B/P Pulse Ox O2 Delivery O2 Flow Rate FiO2 09/10/16 12:22 37.0 98 16 125/81 95 Room Air 09/10/16 11:52 Room Air 09/10/16 08:15 37.1 99 16 134/76 93 Room Air 09/10/16 05:45 36.8 101 18 99/64 94 Room Air Intake and Output- Last 8 Hour 09/10/16 Cumulative From/Thru 07:00 08/26/16 14:40 - 09/10/16 05:57 Intake Total 200 ml 56089 ml Output Total 09812 ml Balance 200 ml 2535 ml Intake Oral 200 ml 46226 ml IV Total 51441 ml TPN/PPN 25268 ml Output Urine Total 81042 ml Stool Total 625 ml Gastric Drainage Total 220 ml Emesis 150 ml Estimated Blood Loss 100 ml # Voids 3 24 # Bowel Movements 0 17 General: Alert, Oriented X3, Cooperative, No Acute Distress Abdomen: Soft, Non-tender, Ostomy pink & viable Result Diagram: 09/10/16 0640 09/10/16 0640 Assessment & Plan Impression 81yof postoperative day 9 after laparoscopic sigmoid colectomy for benign stricture. She has recovered well from her operation, but she has a urinary tract infection. Problems: Plan General diet, blood sugar control, antibiotics for UTI. Appreciate management by the hospitalist service. VTE Prophylaxis: Sub-Q Heparin (Unfractionated), SCDs Resuscitation Status: CPR: Attempt Resuscitation Jessica Hyatt MD Sep 10, 2016 12:40
[2016-09-10] MEDS: Polyethylene Glycol (PEG) 17 Gm Powder PO SCH (12:58)
--- NOTE | 2016-09-10 19:28 | NUR ---
Bladder spasms Pt. states bladder spasms feeling better than yesterday. No episodes of incontinence today. Will continue to monitor.
[2016-09-10 20:00] VITALS: BP 106/63; PULSE 99; RESP 16; O2SAT 95
[2016-09-10] MEDS: cefTRIAXone Inj 1,000 MG in Dextrose 5% Minibag Plus 50 ML IV SCH (20:51)
--- NOTE | 2016-09-11 | PCM.PNMED ---
Subjective Date of Service Sep 10, 2016 Subjective Patient is seen and examined. Patient is describing decreased bladder spasms, increased voluntary control. Yesterday she was incontinent on her bed. She states she still does not have good appetite and has not taken much of her dinner. White count is elevated today to 16. Patient appears tired. She denies cough and dyspnea. She denies fevers and chills. Exam Vital Signs Vital Sign - Last Date Time Temp Pulse Resp B/P Pulse Ox O2 Delivery O2 Flow Rate FiO2 09/10/16 20:00 36.3 99 16 106/63 95 Room Air Intake and Output 09/09/16 09/09/16 09/10/16 Cumulative From/Thru 15:00 23:00 07:00 08/26/16 14:40 - 09/10/16 05:57 Intake Total 600 ml 200 ml 35348 ml Output Total 950 ml 38467 ml Balance -350 ml 200 ml 2535 ml Intake Oral 600 ml 200 ml 67269 ml IV Total 44492 ml TPN/PPN 06898 ml Output Urine Total 950 ml 71834 ml Stool Total 625 ml Gastric Drainage Total 220 ml Emesis 150 ml Estimated Blood Loss 100 ml # Voids 3 24 # Bowel Movements 0 17 Exam General: NAD, laying in bed, HEENT: NCAT, poor dentition Eyes: Malone conjunctivae. No ptosis, Neck: No masses, trachea midline, no thyromegaly Lungs: CTA with normal respiratory effort, no crackles or wheezes CV: RRR, no murmurs/rubs/gallops, GI: Soft, non-tender with no hepatosplenomegaly Skin: Warm and dry. Psych: A&O X3, with appropriate affect IVs and Medications IV Fluids none, TPN is discontinued Medications Reviewed: Medications were reviewed in detail Lab and Diagnostics Result Diagram: 09/10/16 0640 09/10/16 0640 X-Rays, CTs and MRIs PROCEDURE: CT ABDOMEN AND PELVIS WITH CONTRAST IMPRESSION: 1. Apple core lesion within the sigmoid colon most consistent with colorectal cancer with resultant partial obstruction as described above. Fat stranding and trace fluid suggest microperforation. No pat pneumoperitoneum. This finding was discussed with Dr. Meraz at 6:13 PM on 08/26/16. 2. Cholelithiasis. Dictated by: Zahra Jones M.D. on 08/26/2016 at 18:02 Approved by: Zahra Jones M.D. 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 1. Acute large bowel obstruction, present on admission - History of colon obstruction as seen on abdominal imaging since 2013. - 08/26/2016 Apple Core lesion seen on CT abdomen and pelvis with stool compaction proximal to stricture. - Now S/P Laparoscopy sigmoidectomy on 09/01/2016 - Per Pathology related to diverticular disease - Further post-op management and tapering of TPN per surgery consult -- TPN is completely discontinued by the surgical team -- Stable, good stool output in the colostomy bag 2. Acute leukocytosis, present on admission, recurrent, but low grade - Followup repeat labs in am. -- Likely due to UTI at this time 09/11 3: Acute bladder spasm: Currently on when necessary azo -- We will consider belladonna alkaloids if need be: Cannot use rectal suppositories -- UA sent. : Positive for infection sensitivities show sensitivity to ceftriaxone: She is currently on ceftriaxone -- Requested a bladder scan, nursing order to straight cath if urine retention greater than 400 mL. She does appear to have good urine output from the records however -- Consider tamsulosin. -- Consider urology consult 3. Hyperglycemia in a known type 2 diabetic, present on admission - Improved, minimal PO intake of food , insulin drip DC'd, glu still 100's on minimal SSI - HgA1C 7.9 -- Started her on metformin 500 mg by mouth twice a day based on her trending of blood glucose 4. Hypertension, chronic, present on admission - She is currently on hydrochlorothiazide. All the rest of home meds are held -- Orthostatic blood pressures are ordered to make sure she will not have trouble with taking all her home meds prior to advancing: Negative for orthostatic hypotension -- Added lisinopril 5 mg daily 5. Hypothyroidism, present on admission, chronic, active - Levothyroxine 75 g daily 6. Insomnia - She is on trazodone here 7. Minimal elevation of ALT present on admission -Continue to monitor 8. Poor appetite -- Ordered prealbumin -- Ordered dietary consult: Please follow up with them, they have made recommendations earlier on TPN Disposition: Surgery has pretty much cleared patient, if we can get her UTI to be asymptomatic perhaps we consult in utero, patient will be able to be discharged to shelter Pain Evaluation: Adequate Pain Control GI Prophylaxis: Not indicated VTE Prophylaxis: Sub-Q Heparin (Unfractionated), SCDs VTE Mechanical Devices: Intermittant Pneumatic CD Resuscitation Status: CPR: Attempt Resuscitation Gely Macias DO Sep 11, 2016 00:00
[2016-09-11] MEDS: 0.9% Sodium Chloride 1,000 ML IV SCH (00:55)
[2016-09-11] MEDS: Heparin 5,000 Unit/mL Inj SUBQ SCH ×2 (00:58→08:30)
--- NOTE | 2016-09-11 02:43 | NUR ---
Voiding/Pain Patient up to BSC x2 so far this shift. Voiding approx. 250 ml each time. PVR only showed 84 ml left in bladder. Order to straight cath for >400 ml. Refusing routine Tylenol. States its not necessary as she's not having any pain.
[2016-09-11 06:00] VITALS: BP 99/65; PULSE 94; RESP 16; O2SAT 94
[2016-09-11 06:08] LABS: Mean Corpuscular Hemoglobin 33.7 pg (27.0-35.0); Mean Corpuscular Volume 106.1 fL (81-100)
[2016-09-11] MEDS: Insulin LISPRO 300 Unit/3 mL Inj SUBQ SCH ×2 (08:00→12:00)
[2016-09-11 08:38] VITALS: BP 106/71; PULSE 98; RESP 16; O2SAT 92
--- NOTE | 2016-09-11 11:32 | NUR ---
NUTRITION FOLLOW UP: ASSESS: Pt is an 81 YO female admitted with bowel obstruction. She is POD 10 following laparoscopic sigmoid colectomy. TPN started 08/30 and advanced to ~75% of needs 09/02. TPN was stopped 09/09. PO intake has been fair at ~25-75% of needs. Pt reported that her appetite is not that same as it was before the surgery. Discussed colostomy diet with pt and encourage smaller, more frequent meals and to slowly incorporate new foods into diet. PMHX: DM 2, SBO, hypothyroid, diverticulitis, colon malignancy, HTN. LABS: Reviewed. 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 Insulin. GI: Ostomy functioning, 200ml output 09/10 SKIN: Clifford 18. No major issues. Ostomy teaching ongoing per Display Associate. WT: 92.2 kg, BMI 33.8kg/m2, admit wt 95.9kg, IBW 56.8kg DIET: General, PO 25-75% EST. NEEDS: BMI Kcals: 1965-2160kcal/day (20-22kcal/kg) Pro: 65-85g/day (1.2-1.5g/kg IBW) NUTRITION DIAGNOSIS: 1) Inadequate oral intake related to altered GI function as evidence by current full liquid diet order and previous need for bowel rest - IMPROVING. NUTRITION INTERVENTION: 1) Changed diet order to diabetic, stopped imact and added strawberry Glucerna on L tray per pt preference. 2) Provided handout reviewing colostomy diet. Discussed eating low fiber foods and smaller more frequent meals when appetite is still returning. Discussed avoiding high fat, spicy, greasy foods and to slowly incorporate new foods back into diet to see how her body reacts to new foods. MONITOR / EVAL: PO, GI, diet advance, wt, labs, POC, nutrition status. Will continue to monitor per moderate nutrition risk guidelines
--- NOTE | 2016-09-11 11:53 | PCM.DIMED ---
Discharge Instructions Date of Service Sep 11, 2016 Dates of Hospitalization Aug 26, 2016 at 20:42 Discharge Diagnosis Discharge Diagnosis Acute large bowel obstruction UTI Acute bladder spasm Hyperglycemia in a known type 2 diabetic Hypertension, chronic Hypothyroidism Insomnia Poor appetite Diet No restrictions Activity No restrictions Patient Instructions Follow-up with PCP in: 2 weeks Additional Information Follow up with surgery as per their instructions Wound care per surgery instructions Beverley Polanco MD Sep 11, 2016 11:53
[2016-09-11] MEDS ORDERED: CIPR-231 PO (11:56)
[2016-09-11] MEDS: Polyethylene Glycol (PEG) 17 Gm Powder PO SCH (12:00)
[2016-09-11] MEDS ORDERED: ATEN50TA PO (12:01)
[2016-09-11] MEDS ORDERED: Acetaminophen PO (12:01)
[2016-09-11] MEDS ORDERED: METF500T PO (12:01)
--- NOTE | 2016-09-11 12:09 | PCM.DC.MED ---
Discharge Summary Date of Service Sep 11, 2016 Dates of Hospitalization Date of Hospital Admission Aug 26, 2016 at 20:42 Date of Discharge: Sep 11, 2016 Providers: Admitting Physician: Booker Villar MD Primary Care Physician: Ellis Holt MD Attending Physician: Will Marcelino MD Diagnosis at Time of Discharge Diagnosis at Time of Discharge Acute large bowel obstruction UTI Acute bladder spasm Hyperglycemia in a known type 2 diabetic Hypertension, chronic Hypothyroidism Insomnia Poor appetite Procedures XRay, CTs & MRIs PROCEDURE: CT ABDOMEN AND PELVIS WITH CONTRAST IMPRESSION: 1. Apple core lesion within the sigmoid colon most consistent with colorectal cancer with resultant partial obstruction as described above. Fat stranding and trace fluid suggest microperforation. No pat pneumoperitoneum. This finding was discussed with Dr. Meraz at 6:13 PM on 08/26/16. 2. Cholelithiasis. Dictated by: Zahra Jones M.D. on 08/26/2016 at 18:02 Approved by: Zahra Jones M.D. on 08/26/2016 at 18:17 Brief History GASTROENTEROLOGY CONSULTATION: Lissette Mendoza is a 81 yo female with a history of partial bowel blockage due to sigmoid thickening dating back to 2013, Type 2 DM, hypothyroidism, and HTN who presented to [facility] for 2 day history of severe generalized abdominal pain with nausea and vomiting. The patient reports chronic constipation that controlled with daily laxatives and stool softeners. However, in the week, she has not had a good bowel movement and is passing pencil-like stools and small pellet-like rocks as stool. She attributes this to dehydration as she has not been drinking much water due to being "distracted by her daughter visitn from [place]." She reports that these symptoms are similar to her previous episodes of abdominal cramps with nausea and vomiting that prompted hospital admission in the past. Otherwise, she denies hematemesis, hematochezia, melena, dizziness , headache, chest pain, fever, or chills. Of note, the patient had a CT scan in January 2014 that showed irregular wall thickening involving the sigmoid colon and also cholelithiasis. The CT scan from October 2015 showed irregular wall thickening within the mid sigmoid colon similar in appearance to June 2013. This finding is suspicious for indolent neoplasm. The patient has had prior history of recurrent diverticulitis. Given the onset of lower abdominal pain and nausea, vomiting over the past two days, a repeat CT scan was done yesterday and this also showed an apple core lesion within the sigmoid colon most consistent with colorectal cancer with resultant partial obstruction. Again, there are also findings of cholelithiasis. In the past, the patient had refused further workup with colonoscopy or medical treatment at that time and was discharged home with laxatives for constipation and instructions to follow up with her PCP. Patient had a failed colonoscopy by Dr. Abdoul Barton in 2003, and subsequently has been refusing further endoscopic surveillance of her colon ever since. Today, she reports significant improvement of her symptoms with the NG tube and pain medication. She had a small pellet stool yesterday morning and she does report passing flatus intermittently. Dr. Funez from general surgery discussed with the patient and her daughter about possible exploratory laparotomy with sigmoid resection and a colostomy. Patient initially refused to pursue surgical or invasive intervention. However, when we talked to her this morning, she agreed to "whatever needs to be done because I cannot keep having this again." However, she is adamant about NO colonoscopy and refuses to do the bowel prep. She is ok with sigmoidoscopy and surgical interventions at this point. Gastroenterology service is consulted for the sigmoidoscopy. 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 1. Acute large bowel obstruction, present on admission - History of colon obstruction as seen on abdominal imaging since 2013. - 08/26/2016 Apple Core lesion seen on CT abdomen and pelvis with stool compaction proximal to stricture. - Now S/P Laparoscopy sigmoidectomy on 09/01/2016 - Per Pathology related to diverticular disease - post-op management including TPN per surgery consult -- TPN is completely discontinued by the surgical team and now eating -- Stable, good stool output in the colostomy bag 2. Citrobactr UTI with Acute bladder spasm: -- Currently on when necessary azo -- UA sent. : Positive for infection sensitivities show sensitivity to ceftriaxone, currently on ceftriaxone but will change to Cipro at discharge -- Earlier in hospital stay had urinary retention requiring ro for a few days , most recent PVR 84 per bladder scan 3. Hyperglycemia in a known type 2 diabetic, present on admission - initially insulin drip per surg, later DC'd, glu still 100's on minimal SSI, Metformin resumed - HgA1C 7.9 4. Hypertension, chronic, present on admission - She is currently on hydrochlorothiazide. All the rest of home meds are held most of hospital stay although low dose Lisinopril (instead of Losartan) given towards end of hospital stay - Blood pressure still somewhat low, will resume Atenolol at half her usual dose and continue to hold losartan which could be resumed at [facility] as her blood pressure comes up -- Orthostatic blood pressures are ordered to make sure she will not have trouble with taking all her home meds prior to advancing: Negative for orthostatic hypotension 5. Hypothyroidism, present on admission, chronic, active - Levothyroxine 75 g daily 6. Insomnia - She is on trazodone 7. Minimal elevation of ALT present on admission - No specific etiology determined 8. Poor appetite -- Expect to gradually improve Exam Vital Signs (Last) Date Time Temp Pulse Resp B/P Pulse Ox O2 Delivery O2 Flow Rate FiO2 09/11/16 08:38 36.0 98 16 106/71 92 Room Air Test 08/26/16 16:20 08/27/16 05:45 09/08/16 11:15 09/08/16 19:58 Activated Partial Thromboplast Time 28.0sec (22.8-33.0) Hemoglobin A1c 7.9% (4.8-5.6) Lactic Acid Level 1.4mmol/L (0.4-2.0) Lipase 16U/L (13-60) Carcinoembryonic Antigen 2.9ng/mL (0.0-4.7) Procalcitonin 0.12ng/mL (0.00-0.08) Prothrombin Time 10.6sec (8.1-12.5) Prothromb Time International Ratio 0.99ratio Phosphorus Level 3.2mg/dL (2.5-4.9) Magnesium Level 1.8mg/dL (1.6-2.6) Urine Color [place] (YELLOW) Urine Appearance Hazy (CLEAR,HAZY) Urine pH (5.0-8.0) Urine Specific Beggs 1.015 (1.003-1.035) Urine Protein mg/dL (NEG,TRACE) Urine Glucose (UA) Negativemg/dL (NEGATIVE) Urine Ketones mg/dL (NEGATIVE) Urine Occult Blood Large (NEGATIVE) Urine Nitrite (NEGATIVE) Urine Bilirubin (NEGATIVE) Urine Urobilinogen mg/dL (NORMAL) Urine Leukocyte Esterase (NEGATIVE) Urine RBC >50/hpf (0-2) Urine WBC >50/hpf (0-5) Urine Epithelial Cells Moderate/hpf (NONE-MOD) Urine Crystals None seen (NONE SEEN) Urine Bacteria Many/hpf (NONE-FEW) Urine Hyaline Casts None/lpf (NONE) Urine Granular Casts None seen (NONE SEEN) Urine Waxy Casts None seen (NONE SEEN) Urine Red Blood Cell Casts None seen (NONE SEEN) Urine White Blood Cell Casts None seen (NONE SEEN) Urine Mucus None seen (None Seen) Urine Trichomonas None seen (NONE SEEN) Urine Yeast None (NONE SEEN) Urinalysis Comment Color interference Urine Culture Reflexed Indicated Test 09/09/16 06:00 09/09/16 06:11 09/10/16 06:40 09/11/16 05:43 Total Bilirubin 0.8mg/dL (0.0-1.2) Aspartate Amino Transf (AST/SGOT) 73U/L (0-50) Alanine Aminotransferase (ALT/SGPT) 45U/L (0-32) Alkaline Phosphatase 128U/L (25-165) Total Protein 5.8g/dL (6.4-8.4) Albumin 3.5g/dL (3.4-5.0) Neutrophils (%) (Auto) 65.4% (40-74) Lymphocytes (%) (Auto) 17.6% (14-46) Monocytes (%) (Auto) 10.2% (4-12) Eosinophils (%) (Auto) 2.7% (0-5) Basophils (%) (Auto) 0.5% (0-3) Prealbumin 20mg/dL (20-40) White Blood Count 12.4th/mm3 (3.8-10.1) Red Blood Count 3.74mil/mm3 (3.90-5.20) Hemoglobin 12.6g/dL (12.0-15.6) Hematocrit 39.7% (35.0-46.0) Mean Corpuscular Volume 106.1fL (81-100) Mean Corpuscular Hemoglobin 33.7pg (27.0-35.0) Mean Corpuscular Hemoglobin Concent 31.7% (32.0-37.0) Red Cell Distribution Width 13.9% (12.3-15.4) Platelet Count 298bil/L (150-400) Sodium Level 139mEq/L (134-144) Potassium Level 4.3mEq/L (3.5-5.2) Chloride Level 100mEq/L (97-108) Carbon Dioxide Level 21mmol/L (18-29) Blood Urea Nitrogen 19mg/dL (8-27) Creatinine 0.50mg/dL (0.57-1.00) Estimat Glomerular Filtration Rate 169mL/min (>59) Glucose Level 129mg/dL (60-99) Calcium Level 9.6mg/dL (8.5-10.1) Discharge Medications Discharge Medications ([inderjit soothe]) 1 CAPSULE PO DAILY (Reported) ([occufix ]) 1 CAPSULE PO DAILY (Reported) Aspirin (Aspirin) 81 Mg Tablet 81 MG PO HS (Reported) Atenolol (Atenolol) 50 Mg Tablet 25 MG PO DAILY Prescribed by: MARYLIN ARREDONDO MD Cholecalciferol (Vitamin D3) (Vitamin D3) 2,000 Unit Capsule 4,000 UNIT PO DAILY (Reported) Ciprofloxacin (Cipro) 500 Mg Tablet 500 MG PO BID Prescribed by: MARYLIN ARREDONDO MD Gluc 2Kcl/Chondr/Kulwant Hy/Hy AC (Glucosamine & Chondroitin Cap) 1 Each Capsule 1 EACH PO DAILY (Reported) Hydrochlorothiazide (Hydrochlorothiazide) 25 Mg Tablet 25 MG PO DAILY (Reported ) Levothyroxine (Levothyroxine) 75 Mcg Tablet 75 MCG PO DAILY (Reported) Melatonin/Pyridoxine (Melatonin 3 mg Tablet) 1 Each Tablet 1 EACH PO HS ( Reported) Metformin (Glucophage) 500 Mg Tablet 500 MG PO BIDWM Prescribed by: MARYLIN ARREDONDO MD Multivitamin (Once Daily) 1 Each Tablet 1 EACH PO DAILY (Reported) Temazepam (Temazepam) 15 Mg Capsule 15 MG PO HS (Reported) Trazodone (Trazodone) 50 Mg Tablet 25 MG PO HS (Reported) As needed ([Acetaminophen]) 325 MG TABLET 650 MG PO Q6 PRN PRN For Pain Prescribed by: MARYLIN ARREDONDO MD Followup Plan Discharge Diet: No restrictions Discharge Activity: No restrictions Follow-up with PCP in: 2 weeks aMrylin Arredondo MD Sep 11, 2016 12:09
--- NOTE | 2016-09-11 13:04 | PCM.PNSURG ---
Subjective Visit Information: Reason for Visit Bowel Obstruction,Sigmoid Mass Surgery/Surgery Date sigmoid colectomy 09/01/16 Post-Op Day # Date of Admission: Aug 26, 2016 at 20:42 Hospital Day # Subjective: stable, WBC decreasing, tolerating regular diet, BS well controlled <180. Objective Vital Sign- Last 8 Hours Date Time Temp Pulse Resp B/P Pulse Ox O2 Delivery O2 Flow Rate FiO2 09/11/16 08:38 36.0 98 16 106/71 92 Room Air 09/11/16 06:00 36.7 94 16 99/65 94 Room Air Intake and Output- Last 8 Hour 09/11/16 Cumulative From/Thru 07:00 08/26/16 14:40 - 09/11/16 06:34 Intake Total 357 ml 56092 ml Output Total 600 ml 98395 ml Balance -243 ml 2232 ml Intake Oral 300 ml 30025 ml IV Total 57 ml 24221 ml TPN/PPN 51562 ml Output Urine Total 600 ml 34814 ml Stool Total 0 ml 825 ml Gastric Drainage Total 220 ml Emesis 150 ml Estimated Blood Loss 100 ml # Voids 24 # Bowel Movements 17 General: Alert, Oriented X3, Cooperative, No Acute Distress Abdomen: Soft, Non-tender, Ostomy pink & viable Result Diagram: 09/11/16 0543 09/11/16 0543 Assessment & Plan Impression POD11 lap sigmoid colectomy Problems: Plan OK to discharge with primary team is ready f/u with me in 2 weeks. VTE Prophylaxis: Sub-Q Heparin (Unfractionated), SCDs Resuscitation Status: CPR: Attempt Resuscitation Jessica Hyatt MD Sep 11, 2016 13:04
--- NOTE | 2016-09-11 13:35 | NUR ---
Social Work-Discharge Data:EMR Reviewed. Pt is on day 16 of hospitalization for bowel obstruction per H&P. Pt is medically stable, pt to discharge today. DANIELA spoke with Jessica, admissions at [facility], who is agreeable to accepting pt today. UR Specialist created packet and faxed orders. SW updated pt at bedside, pt agreeable to plan. DANIELA notified LICHA Cynrobbie Vergara of pt's discharge, left voicemail. Jessica set up transportation via cabulance for 1400. Paperwork and PASRR in the chart. UC, RN, pt/family, and [facility] all updated and agreeable to plan. Assessment:Pt who would benefit from SNF. Plan: Pt to discharge to [facility] via cabulance at 1400. Paperwork and PASRR in the chart. UC, RN, pt/family, and [facility] all updated and agreeable to plan. Suzette Perez, BOARDING SPECIALIST
[2016-09-11] MEDS ORDERED: TRAZ-115 PO (13:49)
[2016-09-11] MEDS ORDERED: RES15 PO (13:49)
[2016-09-11 13:54] VITALS: BP 114/76; PULSE 100; RESP 16; O2SAT 96
--- NOTE | 2016-09-11 14:20 | NUR ---
DISCHARGE Patient denies pain. Tolerating her diet and PO liquids well. Denies nausea. No emesis noted. Denies SOB. Patient has been able to get OOB to the BSC with 1 PA and the FWW. Lap sites are healed. Colostomy is putting out liquid, brown stool. Patient voided 300 ml. PVR- [address] Polanco was notified. PICC line d/cd by IVT. Report given to Jyoti in [facility]. Discharged to [facility] with all her personal belongings via cabulance.
== END 2016-09-11 14:15 | DRG 330 ==
LOC: SED 14:22 → MPC 20:42 → OSC 08-28 16:52
PROVIDERS: ADMIT Hospitalist; ATTEND Hospitalist
PROC: 0DJD8ZZ Inspection of Lower Intestinal Tract, Via Natural or Artificial Opening Endoscopic (ICD-10-PCS; 2016-08-27)
PROC: 3E0436Z Introduction of Nutritional Substance into Central Vein, Percutaneous Approach (ICD-10-PCS; 2016-08-30)
PROC: 0DTN0ZZ Resection of Sigmoid Colon, Open Approach (ICD-10-PCS; principal; 2016-09-01 12:45)
PROC: 0D1N0Z4 Bypass Sigmoid Colon to Cutaneous, Open Approach (ICD-10-PCS; 2016-09-01 12:45)
DX: K56.69 Other intestinal obstruction (principal); K57.32 Diverticulitis of large intestine without perforation or abscess without bleeding; N39.0 Urinary tract infection, site not specified; E03.9 Hypothyroidism, unspecified; Z79.82 Long term (current) use of aspirin; E11.65 Type 2 diabetes mellitus with hyperglycemia; I10 Essential (primary) hypertension; G47.00 Insomnia, unspecified; R74.0 Nonspecific elevation of levels of transaminase and lactic acid dehydrogenase [LDH]; Z66 Do not resuscitate; D72.829 Elevated white blood cell count, unspecified; E87.6 Hypokalemia; R33.9 Retention of urine, unspecified; B96.89 Other specified bacterial agents as the cause of diseases classified elsewhere; N32.89 Other specified disorders of bladder